=== PATIENT | female | born 1955 | race Caucasian/White ===

== ENCOUNTER 2016-11-20 09:50 | Outpatient (CLI) | payer OTHER | END 2016-11-20 23:59 | DX: L72.3 Sebaceous cyst (principal) ==

== ENCOUNTER 2017-02-19 09:16 | Outpatient (CLI) | payer OTHER ==
--- NOTE | 2017-02-23 07:42 | Mammography Report ---
DIGITAL BILATERAL SCREENING MAMMOGRAM: 02/19/2017 CLINICAL HISTORY: This is a 61-year-old female in for routine screening mammogram. Patient has no f amily history of breast cancer. Patient has had no previous breast surgical procedures. COMPARISON: 10/11/2015, 01/20/2014, 10/03/2011, 12/28/2009 TECHNIQUE: Craniocaudad and oblique lateral views of each breast were obtained with Hologic Full Fie ld digital mammography. FINDINGS: Breast parenchyma consists almost entirely of fat. Four small benign masses are noted in the right breast. Two of these are calcified. They lie within the 9 o'clock position of the right b reast as well as within the upper outer quadrant of the right breast at the 10 and 11 o'clock positio ns. They have been present on preceding mammograms dating as far back as 2009. No change is noted. They most likely represent combination of benign fibroadenomas and benign intramammary lymph nodes. They measure each around 5-7 mm. A few benign-appearing calcifications are noted in the left breast . These are unchanged as compared to multiple preceding exams dated as far back as 01/20/2014. IMPRESSION: BREASTS APPEAR RADIOGRAPHICALLY BENIGN. BIRADS CATEGORY 2 - BENIGN FINDINGS. RECOMMENDATIONS: Annual bilateral screening mammography. STANDARD QUALIFYING STATEMENTS 1. This examination was reviewed with the aid of Computer-Aided Detection (CAD). 2. A negative or benign imaging report should not delay biopsy if clinically suspicious findings are present. Consider surgical consultation if warranted. More than 5% of cancers are not identified by i maging. 3. Dense breasts may obscure an underlying neoplasm. JOB #: [id number] EXT JOB #:[id number]
== END 2017-02-19 09:17 | disposition home or self-care (01) ==
LOC: DI 09:16
PROVIDERS: ATTEND Family Medicine
DX: Z12.31 Encounter for screening mammogram for malignant neoplasm of breast (principal)
CPT/HCPCS: 77067

== ENCOUNTER 2017-02-19 09:18 | Outpatient (CLI) | payer OTHER ==
[2017-02-19 09:53] LABS: BASOPHILS # (AUTO) 0.1 10^3/uL (0.0-0.1); BASOPHILS % (AUTO) 0.8 %; EOSINOPHILS # (AUTO) 0.3 10^3/uL (0.0-0.7); EOSINOPHILS % (AUTO) 3.7 %; HCT - HEMATOCRIT 37.7 % (37.0-47.0); HGB - HEMOGLOBIN 12.4 g/dL (12.0-16.0); LYMPHOCYTES # (AUTO) 1.8 10^3/uL (1.5-3.5); LYMPHOCYTES % (AUTO) 23.4 %; MEAN CORPUSCULAR HGB CONC 32.9 g/dL (32.0-36.0); MEAN CORPUSCULAR VOLUME 94.4 fL (81.0-99.0); MEAN PLATELET VOLUME 7.7 fL (7.9-10.8); MONOCYTES # (AUTO) 0.6 10^3/uL (0.0-1.0); MONOCYTES % (AUTO) 7.7 %; NEUTROPHILS # (AUTO) 4.8 10^3/uL (1.5-6.6); NEUTROPHILS % (AUTO) 64.4 %; RED BLOOD COUNT 3.99 10^6/uL (4.20-5.40); RED CELL DISTRIBUTION WIDTH 14.7 % (12.0-15.0); UNCORRECTED WHITE BLOOD COUNT 7.5 x10^3/uL; WHITE BLOOD COUNT 7.5 x10^3/uL (4.8-10.8)
[2017-02-19 10:14] LABS: ALBUMIN/GLOBULIN RATIO 1.4 (1.0-2.2); BILIRUBIN,TOTAL 0.5 mg/dL (0.2-1.0); BUN - BLOOD UREA NITROGEN 19 mg/dL (6-20); CALCIUM 9.4 mg/dL (8.5-10.3); CARBON DIOXIDE - CO2 31 mmol/L (21-32); CHLORIDE 98 mmol/L (101-111); CHOL/HDL RATIO 1.4 (<4.4); CHOLESTEROL 163 mg/dL; CREATININE 0.6 mg/dL (0.4-1.0); GFR - MDRD 102 (>89); GLUCOSE 148 mg/dL (70-100); HDL CHOLESTEROL 116 mg/dL; LDL/HDL RATIO 0.3 (<4.4); POTASSIUM 4.4 mmol/L (3.5-5.0); SODIUM 138 mmol/L (135-145); TRIGLYCERIDES 47 mg/dL; VLDL CHOLESTEROL 9 mg/dL
[2017-02-19 10:25] LABS: HEMOGLOBIN A1C 0.61 g/dL
[2017-02-19] MEDS ORDERED: IOPAMIDOL-300 50 ML VIAL PO ONE (11:06)
[2017-02-19] MEDS ORDERED: IOPAMIDOL-300 100 ML VIAL IVP ONE (11:58)
--- NOTE | 2017-02-19 13:44 | CT Report ---
CONTRAST-ENHANCED CT EXAM OF THE ABDOMEN AND PELVIS: 02/19/2017 CLINICAL HISTORY: A 61-year-old female with adenocarcinoma of the colon and left lower abdominal pain. COMPARISON: None. TECHNIQUE: Patient received 100 mL of Isovue-300 as a contrast agent. Patient also received oral contrast. CAT scan of the abdomen and pelvis were done in association with the contrast injection at 5 x 5 mm intervals. FINDINGS: Lower lung alcaraz show no significant abnormality. Liver and spleen are normal. Pancreas appears normal. Gallbladder shows no wall thickening. Adrenal glands are normal. Right kidney shows a tiny cyst in its inferior aspect. Left kidney shows mild scarring along its lateral aspect. A 1 cm diameter benign cyst is seen along the medial aspect of the inferior pole of this kidney. Ureters are not significantly distended. Pyelocaliceal systems show no significant distention. Bladder is relatively devoid of urine. Periaortic and paracaval regions show no significant adenopathy. No pelvic or significant inguinal adenopathy is seen. Numerous surgical clips are seen in and about the proximal rectum and distal sigmoid colon, indicating partial resection of the colon in this region. Also, surgical gold are seen within the colonic wall. The rest of the colon and small bowel show no significant abnormality. Bones demonstrate significant disk space narrowing at T9-10. Sclerosis is noted along the adjacent vertebral margins. Associated anterior spurring is seen in the adjacent vertebral bodies at T9 and T10. IMPRESSION: 1. PARTIAL RESECTION OF THE SIGMOID COLON IS NOTED. 2. EXAMINATION IS NEGATIVE FOR METASTATIC DISEASE. 3. SINGLE SMALL BENIGN CYST IS NOTED IN ASSOCIATION WITH EACH KIDNEY. In accordance with CT protocol optimization, one or more of the following dose reduction techniques were utilized for this exam: automated exposure control, adjustment of mA and/or KV based on patient size, or use of iterative reconstructive technique. JOB #: [id number] EXT JOB #: [id number] BENNETT
== END 2017-02-19 09:19 | disposition home or self-care (01) ==
LOC: LAB 09:18
PROVIDERS: ATTEND Family Medicine
DX: R10.32 Left lower quadrant pain (principal); Z85.038 Personal history of other malignant neoplasm of large intestine; Z90.49 Acquired absence of other specified parts of digestive tract; N28.1 Cyst of kidney, acquired; I10 Essential (primary) hypertension; E78.5 Hyperlipidemia, unspecified; E11.9 Type 2 diabetes mellitus without complications
CPT/HCPCS: 36415; 74177; 80053; 80061; 82043; 83036; 84443; 85025; Q9967

== ENCOUNTER 2017-08-14 06:13 | Day surgery (SDC) | payer OTHER ==
[2017-08-14] MEDS ORDERED: LACTATED RINGERS 1,000 ML IV ONE (07:18)
[2017-08-14] MEDS ORDERED: LIDOCAINE MPF 1%-EPI 1:200000 30 ML VIAL SUBQ ONE ×2 (07:48)
[2017-08-14] MEDS ORDERED: BUPIVACAINE 0.25% PF 30 ML VIAL SUBQ ONE ×2 (07:48)
[2017-08-14 08:35] VITALS: BP 142/68
[2017-08-15] MEDS ORDERED: MIDAZOLAM 2 MG/2 ML VIAL IVP ONE (12:00)
--- NOTE | 2017-08-16 11:12 | OPERATIVE REPORT ---
DATE OF SURGERY: 08/14/2017. PREOPERATIVE DIAGNOSIS: Right carpal tunnel syndrome. POSTOPERATIVE DIAGNOSIS: Right carpal tunnel syndrome. PROCEDURE PERFORMED: Right carpal tunnel release. OPERATING SURGEON: Holli Lees MD ANESTHESIA: Local with MAC. INDICATIONS FOR SURGERY: Rosmery is a 61-year-old female with progressive carpal tunnel symptoms and syndrome of her right hand. She has failed a nonoperative course and desires carpal tunnel release. DESCRIPTION OF OPERATIVE PROCEDURE: The patient was taken to the operating room and was given sedation by Anesthesia, followed by a sterile prep and drape of her right hand, a surgical timeout, and then a median nerve block utilizing 4 mL of 1% lidocaine and 4 mL of 0.25% Marcaine with epinephrine. Once the block was in effect, a longitudinal incision of 1-1/4 inches was made in the palm in line with the radial border of the ring finger. This dissection was taken directly down to the transverse carpal ligament, which was divided in line with the incision. The extent of the release extended distally from the area of the superficial arch and at the proximal extent to the distal wrist flexion crease. The area was flushed, irrigated. No abnormality was in the tunnel. The nerve appeared slightly constricted. Closure was with 4-0 nylon interrupted in the skin. Sterile dressings were applied. The patient was then taken to the recovery room in stable condition. ESTIMATED BLOOD LOSS: Minimal. COMPLICATIONS: None. TD: 08/16/2017 08:29 BENNETT
== END 2017-08-14 06:14 | disposition home or self-care (01) ==
LOC: SDS 06:13
PROVIDERS: ATTEND Orthopaedic Surgery
PROC: 01N50ZZ Release Median Nerve, Open Approach (ICD-10-PCS; principal; 2017-08-14 07:30)
DX: G56.01 Carpal tunnel syndrome, right upper limb (principal); E11.9 Type 2 diabetes mellitus without complications; Z79.4 Long term (current) use of insulin
CPT/HCPCS: 64721; J7120

== ENCOUNTER 2017-08-20 08:00 | Outpatient (CLI) | payer OTHER ==
[2017-08-20 18:54] LABS: BASOPHILS % (AUTO) 0.7 %; EOSINOPHILS # (AUTO) 0.2 10^3/uL (0.0-0.7); HCT - HEMATOCRIT 36.8 % (37.0-47.0); LYMPHOCYTES # (AUTO) 1.4 10^3/uL (1.5-3.5); LYMPHOCYTES % (AUTO) 22.5 %; MEAN CORPUSCULAR HEMOGLOBIN 31.3 pg (27.0-31.0); MEAN CORPUSCULAR HGB CONC 32.6 g/dL (32.0-36.0); MEAN CORPUSCULAR VOLUME 95.8 fL (81.0-99.0); MEAN PLATELET VOLUME 8.5 fL (7.9-10.8); MONOCYTES # (AUTO) 0.5 10^3/uL (0.0-1.0); MONOCYTES % (AUTO) 8.7 %; NEUTROPHILS # (AUTO) 4.1 10^3/uL (1.5-6.6); NEUTROPHILS % (AUTO) 65.1 %; NUCLEATED RED BLOOD CELLS AUTO 0.1 /100WBC; RED BLOOD COUNT 3.84 10^6/uL (4.20-5.40); RED CELL DISTRIBUTION WIDTH 14.9 % (12.0-15.0); UNCORRECTED WHITE BLOOD COUNT 6.3 x10^3/uL; WHITE BLOOD COUNT 6.3 x10^3/uL (4.8-10.8)
[2017-08-20 19:15] LABS: HEMOGLOBIN A1C 0.55 g/dL
[2017-08-20 19:20] LABS: ALBUMIN/GLOBULIN RATIO 1.3 (1.0-2.2); BILIRUBIN,TOTAL 0.4 mg/dL (0.2-1.0); CALCIUM 9.2 mg/dL (8.5-10.3); CREATININE 0.6 mg/dL (0.4-1.0); POTASSIUM 4.3 mmol/L (3.5-5.0); TOTAL PROTEIN 6.9 g/dL (6.7-8.2)
== END 2017-08-20 08:01 | disposition home or self-care (01) ==
LOC: LAB.WCP 08:00
PROVIDERS: ATTEND Family Medicine
DX: E11.65 Type 2 diabetes mellitus with hyperglycemia (principal)
CPT/HCPCS: 36415; 80053; 83036; 85025

== ENCOUNTER 2017-10-07 10:46 | Emergency (ER) | payer OTHER ==
[2017-10-07 12:38] LABS: BASOPHILS % (AUTO) 0.5 %; EOSINOPHILS # (AUTO) 0.1 10^3/uL (0.0-0.7); EOSINOPHILS % (AUTO) 1.9 %; HGB - HEMOGLOBIN 11.6 g/dL (12.0-16.0); LYMPHOCYTES # (AUTO) 1.3 10^3/uL (1.5-3.5); LYMPHOCYTES % (AUTO) 21.5 %; MEAN CORPUSCULAR HEMOGLOBIN 31.5 pg (27.0-31.0); MEAN CORPUSCULAR HGB CONC 33.2 g/dL (32.0-36.0); MEAN CORPUSCULAR VOLUME 94.9 fL (81.0-99.0); MEAN PLATELET VOLUME 7.5 fL (7.9-10.8); MONOCYTES # (AUTO) 0.5 10^3/uL (0.0-1.0); MONOCYTES % (AUTO) 8.2 %; NEUTROPHILS # (AUTO) 4.2 10^3/uL (1.5-6.6); NEUTROPHILS % (AUTO) 67.9 %; PLT - PLATELET COUNT 220 10^3/uL (130-450); RED BLOOD COUNT 3.68 10^6/uL (4.20-5.40); RED CELL DISTRIBUTION WIDTH 14.4 % (12.0-15.0); WHITE BLOOD COUNT 6.1 x10^3/uL (4.8-10.8)
--- NOTE | 2017-10-07 12:39 | ED Physician Documentation ---
PD HPI SYNCOPE - Stated complaint Stated Complaint: SYNCOPE/COUGH - Chief complaint Chief Complaint: Resp - History obtained from History obtained from: Patient - History of Present Illness Witnessed: Witnessed (She has a Chronic cough. It has been worse over the last few weeks because that she has had a URI for which she was on a azithromycin. Last night she had a coughing spell during which she had a short syncopal episode with complete and quick return to consciousness. It sounds like her physician thinks that it may be due to reflux as it sounds like she is being scheduled for a barium swallow. She is on lisinopril.) Review of Systems Constitutional: denies: Fever, Chills, Fatigue Cardiac: denies: Chest pain / pressure, Pedal edema, Calf pain Respiratory: reports: Cough. denies: Dyspnea, Hemoptysis, Wheezing GI: denies: Abdominal Pain, Nausea, Vomiting PD PAST MEDICAL HISTORY - Past Medical History Past Medical History: Yes Cardiovascular: Congestive heart failure, Hypertension, High cholesterol, Other Respiratory: Pneumonia, Sleep apnea, CPAP use Neuro: None Endocrine/Autoimmune: Type 2 diabetes GI: Colon polyps, Chronic constipation, Other : None HEENT: Other Psych: None Musculoskeletal: Chronic back pain, Other Derm: None - Past Surgical History General: Bowel surgery, Colonoscopy Ortho: Knee replacement /NUCLEAR FUELS RECLAMATION ENGINEER: Tubal ligation, Hysterectomy - Present Medications Home Medications: Ambulatory Orders Medication Instructions Recorded Confirmed Acyclovir 400 mg PO BID 07/04/13 08/14/17 Atorvastatin Calcium 40 mg PO QPM 07/04/13 08/14/17 Carvedilol 25 mg PO DAILY 07/04/13 08/14/17 Estrogens, Conjugated [Premarin] 0.3 mg PO DAILY 07/04/13 08/14/17 Insulin Aspart [NovoLOG] 3 - 5 unit SUBQ TIDWM 07/04/13 08/14/17 Insulin Glargine,Hum.rec.anlog 15 unit SQ BID 07/04/13 08/14/17 [Lantus] Lisinopril 10 mg PO BID 07/04/13 08/14/17 Multivitamin [Multivitamins] 1 each PO DAILY 07/04/13 08/14/17 Omeprazole [PriLOSEC] 20 mg PO DAILY 07/04/13 08/14/17 hydroCHLOROthiazide [Hydrodiuril] 25 mg PO DAILY 07/04/13 08/14/17 Aspirin EC [Ecotrin] 325 mg PO DAILY 08/09/17 08/14/17 Dulaglutide [Trulicity] 1.5 mg SQ ONCE 08/09/17 08/14/17 Metformin HCl [Glucophage] 1,000 mg PO BID 08/09/17 08/14/17 - Allergies Allergies/Adverse Reactions: Allergies Allergy/AdvReac Type Severity Reaction Status Date / Time hydrocodone [Hydrocodone] AdvReac Mild Nausea Verified 10/07/17 10:52 oxycodone AdvReac Nausea Verified 10/07/17 10:52 - Social History Does the pt smoke?: No Smoking Status: Former smoker Does the pt drink ETOH?: Yes ETOH Use: Liquor Does the pt have substance abuse?: No PD ED PE NORMAL - Vitals Vital signs reviewed: Yes - General General: Alert and oriented X 3, No acute distress - HEENT HEENT: PERRL, EOMI, Ears normal - Neck Neck: Supple, no meningeal sign, No bony TTP - Cardiac Cardiac: RRR, No murmur - Respiratory Respiratory: No respiratory distress, Clear bilaterally - Abdomen Abdomen: Non tender - Extremities Extremities: No edema, No calf tenderness / cord - Neuro Neuro: Alert and oriented X 3, Normal speech Results - Vitals Vitals: Vital Signs - 24 hr 10/07/17 10/07/17 10:49 13:51 Temperature 36 C L Heart Rate 88 84 Respiratory 20 16 Rate Blood Pressure 108/65 115/77 O2 Saturation 97 95 Oxygen O2 Source Room air - EKG (time done) 1246 Rate: Rate (enter#) (81) Rhythm: NSR [place]: Normal QRS: Low voltage Ischemia: Normal ST segments, Q waves (V1/2) Computer interpretation: Agree with computer - Labs Labs: Laboratory Tests 10/07/17 10/07/17 10/07/17 12:23 12:23 12:23 WBC 6.1 RBC 3.68 L Hgb 11.6 L Hct 34.9 L MCV 94.9 MCH 31.5 H MCHC 33.2 RDW 14.4 Plt Count 220 MPV 7.5 L Neut # 4.2 Lymph # 1.3 L [place] # 0.5 Eos # 0.1 Baso # 0.0 Absolute Nucleated RBC 0.00 Nucleated RBC % 0.0 PT 10.9 INR 1.0 Sodium 138 Potassium 4.4 Chloride 97 L Carbon Dioxide 27 Anion Gap 14.0 H BUN 19 Creatinine 0.7 Estimated GFR (MDRD) 85 L Glucose 151 H Calcium 9.7 Total Bilirubin 0.5 AST 23 ALT 17 Alkaline Phosphatase 51 Total Protein 6.8 Albumin 3.9 Globulin 2.9 Albumin/Globulin Ratio 1.3 Lipase 23 - Rads (name of study) 2v chest Radiology: EMP read contemporaneously (NAD) PD MEDICAL DECISION MAKING - ED course ED course: 61-year-old woman with chronic cough, now worse with a URI having been on Zithromax already with an unremarkable exam and EKG. Syncope can be explained from increased intrathoracic pressure from coughing, the cough is likely multiple factorial from URI and potentially lisinopril as well. Departure - Departure Disposition: 01 Home, Self Care Clinical Impression: Cough Syncope Qualifiers: Syncope type: vasovagal syncope Qualified Code(s): R55 - Syncope and collapse Condition: Good Record reviewed to determine appropriate education?: Yes Instructions: ED Fainting Unkn Cause Comments: Stop your lisinopril until you discuss with Dr. Campos, it is a common cause of chronic cough. You are mildly anemic and your blood sugar is up a bit, discussed this with Dr. Campos as well.
[2017-10-07 12:43] LABS: PT - PROTHROMBIN TIME 10.9 secs (9.9-12.6)
[2017-10-07 13:07] LABS: ALBUMIN 3.9 g/dL (3.2-5.5); ALBUMIN/GLOBULIN RATIO 1.3 (1.0-2.2); BILIRUBIN,TOTAL 0.5 mg/dL (0.2-1.0); CALCIUM 9.7 mg/dL (8.5-10.3); CREATININE 0.7 mg/dL (0.4-1.0); TOTAL PROTEIN 6.8 g/dL (6.7-8.2)
[2017-10-07 13:52] VITALS: BP 115/77
--- NOTE | 2017-10-07 14:00 | XRAY Report ---
EXAM: CHEST RADIOGRAPHY EXAM DATE: 10/07/2017 01:46 PM. CLINICAL HISTORY: Cough. COMPARISON: 10/03/2016. TECHNIQUE: 2 views. FINDINGS: Lungs/Pleura: No focal opacities evident. No pleural effusion. No pneumothorax. Normal volumes. Mediastinum: Heart and mediastinal contours are unremarkable. Other: None. IMPRESSION: No radiographic evidence for acute cardiopulmonary process. [facility] Referring Provider Line: [phone] SITE ID: [id number]
== END 2017-10-07 15:17 | disposition home or self-care (01) ==
LOC: ED 10:46
DX: R55 Syncope and collapse (principal); R05 Cough; I11.0 Hypertensive heart disease with heart failure; I50.9 Heart failure, unspecified; E78.00 Pure hypercholesterolemia, unspecified; E11.9 Type 2 diabetes mellitus without complications; Z79.4 Long term (current) use of insulin; Z87.891 Personal history of nicotine dependence; Z96.659 Presence of unspecified artificial knee joint
CPT/HCPCS: 36415; 71046; 80053; 83690; 85025; 85610; 93005; 99283; 99284

== ENCOUNTER 2017-11-01 09:15 | Outpatient (CLI) | payer OTHER ==
--- NOTE | 2017-11-01 17:21 | XRAY Report ---
UPPER GI WITH KUB: 11/01/2017 CLINICAL INDICATION: Dysphagia, reflux. FINDINGS: Initial KUB demonstrates a normal bowel gas pattern. Postoperative changes are noted in the pelvis. Single and double contrast upper GI was performed. The esophagus is normal in caliber and contractility. A 13 mm barium pill passed freely through the esophagus and into the stomach. Gastroesophageal reflux was visualized during the course of the study. No esophageal ulceration or mass lesion is seen. The stomach demonstrates a normal fold pattern. No gastric ulceration or mass lesion is seen. The duodenal cap distends normally. The duodenal C loop is unremarkable. Contrast passes freely in the more distal small bowel loops. IMPRESSION: GASTROESOPHAGEAL REFLUX. NO EVIDENCE OF ULCERATION OR MASS LESION. FLUOROSCOPY TIME: 2 minutes 31 seconds; 24 spot images obtained. TD: 11/01/2017 17:20
== END 2017-11-01 09:16 | disposition home or self-care (01) ==
LOC: DI 09:15
PROVIDERS: ATTEND Family Medicine
DX: R13.10 Dysphagia, unspecified (principal); K21.9 Gastro-esophageal reflux disease without esophagitis
CPT/HCPCS: 74247

== ENCOUNTER 2017-11-12 10:56 | Outpatient (CLI) | payer OTHER | END 2017-11-12 10:57 | disposition home or self-care (01) | LOC: SC 10:56 | PROVIDERS: ATTEND Nurse Practitioner Family | DX: G47.33 Obstructive sleep apnea (adult) (pediatric) (principal) | CPT/HCPCS: 99212; 99213 ==

== ENCOUNTER 2017-12-31 08:00 | Outpatient (CLI) | payer OTHER ==
[2017-12-31 19:41] LABS: BASOPHILS # (AUTO) 0.1 10^3/uL (0.0-0.1); EOSINOPHILS # (AUTO) 0.1 10^3/uL (0.0-0.7); EOSINOPHILS % (AUTO) 2.5 %; HGB - HEMOGLOBIN 11.7 g/dL (12.0-16.0); LYMPHOCYTES # (AUTO) 1.2 10^3/uL (1.5-3.5); LYMPHOCYTES % (AUTO) 21.4 %; MEAN CORPUSCULAR HEMOGLOBIN 30.1 pg (27.0-31.0); MEAN CORPUSCULAR HGB CONC 31.6 g/dL (32.0-36.0); MEAN CORPUSCULAR VOLUME 95.2 fL (81.0-99.0); MEAN PLATELET VOLUME 8.3 fL (7.9-10.8); MONOCYTES # (AUTO) 0.5 10^3/uL (0.0-1.0); MONOCYTES % (AUTO) 9.7 %; NEUTROPHILS # (AUTO) 3.7 10^3/uL (1.5-6.6); NEUTROPHILS % (AUTO) 65.4 %; PLT - PLATELET COUNT 219 10^3/uL (130-450); RED BLOOD COUNT 3.88 10^6/uL (4.20-5.40); RED CELL DISTRIBUTION WIDTH 14.8 % (12.0-15.0); WHITE BLOOD COUNT 5.6 x10^3/uL (4.8-10.8)
[2017-12-31 20:17] LABS: ALBUMIN 3.7 g/dL (3.2-5.5); ALBUMIN/GLOBULIN RATIO 1.2 (1.0-2.2); ALKALINE PHOSPHATASE 53 IU/L (42-121); ALT ALANINE AMINOTRANSFERASE 16 IU/L (10-60); AST ASPARTATE AMINOTRANSFERASE 21 IU/L (10-42); BILIRUBIN,TOTAL 0.4 mg/dL (0.2-1.0); BUN - BLOOD UREA NITROGEN 20 mg/dL (6-20); CALCIUM 8.7 mg/dL (8.5-10.3); CARBON DIOXIDE - CO2 30 mmol/L (21-32); CHLORIDE 95 mmol/L (101-111); CHOL/HDL RATIO 1.5 (<4.4); CHOLESTEROL 151 mg/dL; CREATININE 0.5 mg/dL (0.4-1.0); GFR - MDRD 125 (>89); GLUCOSE 138 mg/dL (70-100); HB2 TOTAL 13.1 g/dL; HDL CHOLESTEROL 102 mg/dL; HEMOGLOBIN A1C 0.61 g/dL; HEMOGLOBIN A1C % 6.4 % (4.6-6.2); LDL CHOLESTEROL,CALCULATED 38 mg/dL; LDL/HDL RATIO 0.4 (<4.4); SODIUM 135 mmol/L (135-145); TOTAL PROTEIN 6.8 g/dL (6.7-8.2); VLDL CHOLESTEROL 11 mg/dL
[2017-12-31 20:22] LABS: THYROID STIMULATING HORMONE 0.91 uIU/mL (0.34-5.60)
== END 2017-12-31 08:01 | disposition home or self-care (01) ==
LOC: LAB.WCP 08:00
PROVIDERS: ATTEND Family Medicine
DX: E11.40 Type 2 diabetes mellitus with diabetic neuropathy, unspecified (principal)
CPT/HCPCS: 36415; 80053; 80061; 82043; 82607; 83036; 83721; 84443; 85025

== ENCOUNTER 2018-06-10 14:07 | Outpatient (CLI) | payer OTHER ==
--- NOTE | 2018-06-11 16:30 | Mammography Report ---
Reason: SCREENING MAMMO Procedure Date: 06/10/2018 Accession Number: [id number] / [id number] Procedure: ELISEO - Screening Mammo Dig Bilat CPT Code: FULL RESULT: EXAM: Screening Mammo Dig Bilat DATE: 06/10/2018 3:18 PM CLINICAL HISTORY: 62-year-old female presents for screening mammogram. TECHNIQUE: Bilateral CC and MLO views were obtained. COMPARISON: 02/19/2017, 10/11/2015, 01/20/2014, 10/03/2011. FINDINGS: The breasts demonstrate diffuse fatty replacement bilaterally. There are bilateral typically benign coarse calcifications. No suspicious masses, clustered microcalcifications, or regions of architectural distortion are identified. IMPRESSION: Benign findings RECOMMENDATION: Routine annual screening unless otherwise clinically indicated. BIRADS CATEGORY 2: Benign findings STANDARD QUALIFYING STATEMENTS: 1. This examination was not reviewed with the aid of Computer-Aided Detection (CAD). 2. A negative or benign imaging report should not delay biopsy if clinically suspicious findings are present. Consider surgical consultation if warrented. More than 5% of cancers are not identified by imaging. 3. Dense breasts may obscure an underlying neoplasm. 4. This examination was reviewed without the aid of 3D breast imaging (tomosynthesis).
== END 2018-06-10 14:08 | disposition home or self-care (01) ==
LOC: DI 14:07
DX: Z12.31 Encounter for screening mammogram for malignant neoplasm of breast (principal)
CPT/HCPCS: 77067

== ENCOUNTER 2018-11-11 10:45 | Outpatient (CLI) | payer OTHER | END 2018-11-11 10:46 | disposition home or self-care (01) | LOC: SC 10:45 | PROVIDERS: ATTEND Nurse Practitioner Family | DX: G47.33 Obstructive sleep apnea (adult) (pediatric) (principal); R53.83 Other fatigue | CPT/HCPCS: 99212; 99214 ==

== ENCOUNTER 2018-11-11 12:06 | Outpatient (CLI) | payer OTHER ==
[2018-11-11 19:07] LABS: BASOPHILS % (AUTO) 0.7 %; EOSINOPHILS # (AUTO) 0.1 10^3/uL (0.0-0.7); EOSINOPHILS % (AUTO) 2.5 %; HGB - HEMOGLOBIN 12.5 g/dL (12.0-16.0); LYMPHOCYTES # (AUTO) 1.3 10^3/uL (1.5-3.5); LYMPHOCYTES % (AUTO) 23.5 %; MEAN CORPUSCULAR HEMOGLOBIN 31.8 pg (27.0-31.0); MEAN CORPUSCULAR HGB CONC 32.4 g/dL (32.0-36.0); MEAN PLATELET VOLUME 8.9 fL (7.9-10.8); MONOCYTES # (AUTO) 0.5 10^3/uL (0.0-1.0); MONOCYTES % (AUTO) 8.3 %; NEUTROPHILS # (AUTO) 3.7 10^3/uL (1.5-6.6); PLT - PLATELET COUNT 201 10^3/uL (130-450); RED BLOOD COUNT 3.93 10^6/uL (4.20-5.40); RED CELL DISTRIBUTION WIDTH 14.7 % (12.0-15.0); WHITE BLOOD COUNT 5.7 x10^3/uL (4.8-10.8)
[2018-11-11 19:39] LABS: HB2 TOTAL 13.3 g/dL; HEMOGLOBIN A1C 0.73 g/dL; HEMOGLOBIN A1C % 7.2 % (4.6-6.2)
[2018-11-11 19:47] LABS: ALBUMIN 3.6 g/dL (3.2-5.5); ALBUMIN/GLOBULIN RATIO 1.2 (1.0-2.2); ALKALINE PHOSPHATASE 58 IU/L (42-121); ALT ALANINE AMINOTRANSFERASE 18 IU/L (10-60); AST ASPARTATE AMINOTRANSFERASE 27 IU/L (10-42); BILIRUBIN,TOTAL 0.7 mg/dL (0.2-1.0); BUN - BLOOD UREA NITROGEN 20 mg/dL (6-20); CALCIUM 9.4 mg/dL (8.5-10.3); CARBON DIOXIDE - CO2 30 mmol/L (21-32); CHLORIDE 97 mmol/L (101-111); CHOL/HDL RATIO 1.4 (<4.4); CHOLESTEROL 165 mg/dL; CREATININE 0.7 mg/dL (0.4-1.0); GFR - MDRD 85 (>89); GLUCOSE 130 mg/dL (70-100); HDL CHOLESTEROL 119 mg/dL; LDL CHOLESTEROL,CALCULATED 35 mg/dL; LDL/HDL RATIO 0.3 (<4.4); SODIUM 138 mmol/L (135-145); TOTAL PROTEIN 6.6 g/dL (6.7-8.2); VLDL CHOLESTEROL 11 mg/dL
== END 2018-11-11 12:07 | disposition home or self-care (01) ==
LOC: LAB.WCP 12:06
PROVIDERS: ATTEND Family Medicine
DX: E11.40 Type 2 diabetes mellitus with diabetic neuropathy, unspecified (principal); E78.5 Hyperlipidemia, unspecified; I10 Essential (primary) hypertension; D64.9 Anemia, unspecified
CPT/HCPCS: 36415; 80053; 80061; 82043; 83036; 83721; 84443; 85025

== ENCOUNTER 2019-06-26 09:11 | Outpatient (CLI) | payer OTHER ==
[2019-06-26 12:20] LABS: BASOPHILS % (AUTO) 0.5 %; EOSINOPHILS # (AUTO) 0.1 10^3/uL (0.0-0.7); EOSINOPHILS % (AUTO) 2.3 %; HGB - HEMOGLOBIN 11.7 g/dL (12.0-16.0); LYMPHOCYTES # (AUTO) 1.5 10^3/uL (1.5-3.5); LYMPHOCYTES % (AUTO) 23.7 %; MEAN CORPUSCULAR HEMOGLOBIN 28.8 pg (27.0-31.0); MEAN CORPUSCULAR HGB CONC 30.8 g/dL (32.0-36.0); MEAN CORPUSCULAR VOLUME 93.6 fL (81.0-99.0); MEAN PLATELET VOLUME 10.6 fL (7.9-10.8); MONOCYTES # (AUTO) 0.6 10^3/uL (0.0-1.0); MONOCYTES % (AUTO) 9.5 %; NEUTROPHILS # (AUTO) 3.9 10^3/uL (1.5-6.6); NEUTROPHILS % (AUTO) 63.5 %; PLT - PLATELET COUNT 219 10^3/uL (130-450); RED BLOOD COUNT 4.06 10^6/uL (4.20-5.40); WHITE BLOOD COUNT 6.1 x10^3/uL (4.8-10.8)
[2019-06-26 12:25] LABS: ALBUMIN 3.7 g/dL (3.2-5.5); ALBUMIN/GLOBULIN RATIO 1.2 (1.0-2.2); BILIRUBIN,TOTAL 0.5 mg/dL (0.2-1.0); CALCIUM 9.2 mg/dL (8.5-10.3); CREATININE 0.7 mg/dL (0.4-1.0); TOTAL PROTEIN 6.8 g/dL (6.7-8.2)
[2019-06-26 13:04] LABS: HB2 TOTAL 12.6 g/dL; HEMOGLOBIN A1C 0.63 g/dL; HEMOGLOBIN A1C % 6.7 % (4.6-6.2)
== END 2019-06-26 23:59 | disposition home or self-care (01) ==
LOC: LAB.WCP 09:11
PROVIDERS: ATTEND Family Medicine
DX: E11.9 Type 2 diabetes mellitus without complications (principal)
CPT/HCPCS: 36415; 80053; 83036; 85025

== ENCOUNTER 2019-07-01 15:37 | Outpatient (CLI) | payer OTHER ==
[2019-07-01 16:33] VITALS: BP 148/80
--- NOTE | 2019-07-01 16:33 | SLEEP CARE CONSULTATION ---
Information from patient questionnaire entered by Adrianne Bonner. I have reviewed and concur with the information entered by Adrianne Bonner. This document represents the service I personally performed and the decisions made by me, Michelle Kim, RN, MSN, [employer]. History of Present Illness Previous diagnosis: Moderate, Obstructive Sleep Apnea-Hypopnea Syndrome AHI: 17.4 Reason for CPAP/BiPAP follow up: other (7 month ) Equipment type: CPAP Equipment obtained from: [facility] (having problems getting supplies despite repeated attempts) Mask style: Nasal Mask brand: Respironics Backup mask available: Yes Last cushion change: 2 weeks Prior sleep studies: Yes CPAP Compliance Data - Data Reviewed with Patient Average duration of nightly device use: 9h 20m Compliance rate %: 99.4 Current pressure setting (cmH2O): 10 Humidity settin Heated hose settin Average residual AHI: 2.9 Average large leak: 1 minute Subjective Missed days of use due to: reports: other (unknown as patient uses every night ) Patient concerns: reports: condensation in mask/hose (in nose piece rarely that she thinks is from over feel ). denies: aerophagia, mask discomfort, air blowing in eyes, mask leak noise, nasal congestion, dry mouth, nose, throat, epistaxis Observed to snore while using device: Yes (rare ) Current pressure setting perceived as: comfortable On therapy, patient: reports: being more awake and alert during the day, more rested overall. denies: sleeping better, awakening more refreshed (gets up to bathroom frequently due to diuretic ), drowsiness while driving Initial Aurora Sleepiness Scale score: 12 Current Aurora Sleepiness Scale score: 2 Allergies and Home Medications Known drug allergies: Yes (vicodan, percocet) Home medication list reviewed: Yes (no changes from last annual ) Review of Systems Review of systems same as previous: Yes Physical Exam Blood Pressure: 148/80 Cuff size: long Heart Rate: 78 O2 Saturation: 98 Weight change since last visit: none - deferred stated same weight at pcp office recently Impression and Plan 1. Obstructive Sleep Apnea-Hypopnea Syndrome, moderate, with good treatment compliance and good apnea control. On CPAP therapy, the patient has better sleep quality and is more rested overall. For supplies concern, I informed her she could transfer to new DME and she agreed. Thus I will have my house coordinator inform her of DME options for her insurance. A DWO prescription will be completed. If continued problems she is to contact us. Patient also advised that if she gains or loses significant weight, her CPAP pressure may have to be changed and symptoms to report discussed. She would like to lose weight. I advised her to reduce portions and avoid refined foods and discuss guidelines with her PCP. Patient's apnea severity and rationale for treatment to reduce apnea, improve sleep quality and reduce cardiovascular and cerebrovascular events was reviewed. I also reviewed the benefit of consistent device use of CPAP for hypertension, diabetes, gastric reflux, . * Continue CPAP pressure at 10 cmH2O * Transfer of care * Notify me if snoring with mask or feeling that the pressure is too much or too little * Attempt to lose weight * Return for follow up in 1 year , or sooner if concerns arise I spent 100% of this 20 minute visit face to face with the patient with greater than 50% of this was spent time counseling the patient and coordination of care.
== END 2019-07-01 15:38 | disposition home or self-care (01) ==
LOC: SC 15:37
PROVIDERS: ATTEND Nurse Practitioner Family
DX: G47.33 Obstructive sleep apnea (adult) (pediatric) (principal)
CPT/HCPCS: 99212; 99213

== ENCOUNTER 2019-07-28 11:32 | Outpatient (CLI) | payer OTHER ==
--- NOTE | 2019-07-29 08:31 | CT Report ---
Reason: CHRONIC COUGH Procedure Date: 07/28/2019 Accession Number: [id number] / [id number] Procedure: CT - CHEST WO CPT Code: Final Report FULL RESULT: EXAM: CT CHEST EXAM DATE: 07/28/2019 11:49 AM. CLINICAL HISTORY: Chronic cough. COMPARISONS: CHEST 2 VIEW 10/07/2017 1:36 PM. TECHNIQUE: Routine helical CT imaging was performed through the chest. IV contrast: None. Reconstructions: Coronal and sagittal. In accordance with CT protocol optimization, one or more of the following dose reduction techniques were utilized for this exam: automated exposure control, adjustment of mA and/or KV based on patient size, or use of iterative reconstructive technique. FINDINGS: Lungs/Pleura: No nodules, bronchial thickening, consolidation, or edema. Pulmonary vasculature is normal. No pericardial or pleural effusion. No pneumothorax. Mediastinum: . No adenopathy or masses. No cardiomegaly. Scattered coronary arterial calcifications. Bones: Degenerative disk space narrowing, subchondral sclerotic changes mid to lower thoracic spine. Vertebral body heights appear maintained. Visualized Abdomen: Unremarkable. Other: None. IMPRESSION: No lung abnormalities detected. [facility]
== END 2019-07-28 11:33 | disposition home or self-care (01) ==
LOC: DI 11:32
PROVIDERS: ATTEND Family Medicine
DX: I50.9 Heart failure, unspecified (principal); R05 Cough; I51.7 Cardiomegaly; I51.89 Other ill-defined heart diseases; I27.20 Pulmonary hypertension, unspecified
CPT/HCPCS: 71250; 93306

== ENCOUNTER 2019-08-19 17:49 | Emergency (ER) | payer OTHER ==
[2019-08-19] MEDS ORDERED: IPRATROPIUM/ALBUTEROL 3 ML NEB INH STA (17:57)
[2019-08-19] MEDS ORDERED: methylPREDNISolone SUCCINATE 125 MG/2 ML VIAL IVP STA (17:57)
--- NOTE | 2019-08-19 18:18 | ED Physician Documentation ---
PD HPI DYSPNEA - Stated complaint Stated Complaint: DIFFICULTY BREATHING - Chief complaint Chief Complaint: Resp - History obtained from History obtained from: Patient - History of Present Illness Timing - onset: How many days ago (Several days) Timing - duration: Days Timing - details: Gradual onset Pain level max: 0 Pain level now: 0 Inciting event(s): Out of meds (She states she has her pro-air inhaler, but is waiting on her second inhaler. She does not know the name of the other inhaler) Improved by: Inhaler/neb, Rest Worsened by: Exertion, Coughing Associated symptoms: Cough (Mild, dry), Wheezing. 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 and states that her heart was "fine".) Review of Systems Ten Systems: 10 systems reviewed and negative Constitutional: denies: Fever, Chills Ears: denies: Ear pain Nose: denies: Rhinorrhea / runny nose, Congestion Throat: denies: Sore throat Cardiac: denies: Chest pain / pressure Respiratory: denies: Cough GI: denies: Nausea, Vomiting, Diarrhea Skin: denies: Rash Musculoskeletal: denies: Neck pain, Back pain Neurologic: denies: Headache PD PAST MEDICAL HISTORY - Past Medical History Cardiovascular: Congestive heart failure, Hypertension, High cholesterol, Other Respiratory: Pneumonia, Sleep apnea, CPAP use Endocrine/Autoimmune: Type 2 diabetes GI: Colon polyps, Chronic constipation, Other : None HEENT: Other Psych: None Musculoskeletal: Chronic back pain, Other Derm: None - Past Surgical History General: Bowel surgery, Colonoscopy Ortho: 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: Tubal 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, Hysterectomy - Present Medications Home Medications: Ambulatory Orders Medication Instructions Recorded Confirmed Acyclovir 400 mg PO BID 07/04/13 08/14/17 Atorvastatin Calcium 40 mg PO QPM 07/04/13 08/14/17 Carvedilol 25 mg PO DAILY 07/04/13 08/14/17 Estrogens, Conjugated [Premarin] 0.3 mg PO DAILY 07/04/13 08/14/17 Insulin Aspart [NovoLOG] 3 - 5 unit SUBQ TIDWM 07/04/13 08/14/17 Insulin Glargine,Hum.rec.anlog 15 unit SQ BID 07/04/13 08/14/17 [Lantus] Lisinopril 10 mg PO BID 07/04/13 08/14/17 Multivitamin [Multivitamins] 1 each PO DAILY 07/04/13 08/14/17 Omeprazole [PriLOSEC] 20 mg PO DAILY 07/04/13 08/14/17 hydroCHLOROthiazide [Hydrodiuril] 25 mg PO DAILY 07/04/13 08/14/17 Aspirin EC [Ecotrin] 325 mg PO DAILY 08/09/17 08/14/17 Dulaglutide [Trulicity] 1.5 mg SQ ONCE 08/09/17 08/14/17 Metformin HCl [Glucophage] 1,000 mg PO BID 08/09/17 08/14/17 predniSONE [Deltasone] 10 mg PO [id number] #42 tab 08/19/19 - Allergies Allergies/Adverse Reactions: Allergies Allergy/AdvReac Type Severity Reaction Status Date / Time hydrocodone [Hydrocodone] AdvReac Mild Nausea Verified 08/19/19 17:57 oxycodone AdvReac Nausea Verified 08/19/19 17:57 - Social History Does the pt smoke?: No Smoking Status: Former smoker Does the pt drink ETOH?: Yes Does the pt have substance abuse?: No PD ED PE NORMAL - Vitals Vital signs reviewed: Yes - General General: Alert and oriented X 3, No acute distress - HEENT HEENT: Moist mucous membranes - Neck Neck: Supple, no meningeal sign - Cardiac Cardiac: RRR, Strong equal pulses - Respiratory Respiratory: Other (Diminished breath sounds bilaterally. Wheezing bilaterally.) - Abdomen Abdomen: Soft, Non tender, Non distended - Derm Derm: Warm and dry - Extremities Extremities: No edema, No calf tenderness / cord - Neuro Neuro: Alert and oriented X 3 - Psych Psych: Normal mood, Normal affect Results - Vitals Vitals: Oxygen O2 Source Room air - EKG (time done) 1758 Rate: Rate (enter#) (95) Rhythm: NSR [place]: Normal Intervals: Normal ND QRS: Normal Ischemia: Normal ST segments, Q waves (V1-2) - Labs Labs: Laboratory Tests 08/19/19 08/19/19 08/19/19 18:15 18:15 18:15 WBC 6.5 RBC 4.32 Hgb 13.2 Hct 40.9 MCV 94.7 MCH 30.6 MCHC 32.3 RDW 15.5 H Plt Count 251 MPV 9.7 Neut # (Auto) 4.5 Lymph # (Auto) 1.2 L [place] # (Auto) 0.5 Eos # (Auto) 0.1 Baso # (Auto) 0.0 Absolute Nucleated RBC 0.00 Nucleated RBC % 0.0 Sodium 139 Potassium 3.8 Chloride 99 L Carbon Dioxide 28 Anion Gap 12.0 BUN 17 Creatinine 0.5 Estimated GFR (MDRD) 125 Glucose 182 H Calcium 9.4 Total Bilirubin 0.6 AST 24 ALT 19 Alkaline Phosphatase 55 B-Natriuretic Peptide 155 H Total Protein 7.5 Albumin 4.0 Globulin 3.5 Albumin/Globulin Ratio 1.1 Lipase 26 - Rads (name of study) cxr Radiology: Prelim report reviewed, EMP read contemporaneously, See rad report (No acute disease) PD MEDICAL DECISION MAKING - ED course Complexity details: reviewed results, re-evaluated patient, considered differential, d/w patient ED course: Patient feels much better after steroids and nebulizer treatment. No further hypoxia. Breathing easier. She request to go home at this time. No evidence of pneumonia. No evidence of sepsis. No evidence of pulmonary embolus or pulmonary edema. We will place on steroids for home in addition to her usual medications and inhalers. Patient counseled regarding signs and symptoms for which I believe and urgent re-evaluation would be necessary. Patient with good understanding of and agreement to plan and is comfortable going home at this time This document was made in part using voice recognition software. While efforts are made to proofread this document, sound alike and grammatical errors may occur. Departure - Departure Disposition: 01 Home, Self Care Clinical Impression: Asthma attack Qualifiers: Asthma severity: unspecified severity Asthma persistence: unspecified Qualified Code(s): J45.901 - Unspecified asthma with (acute) exacerbation Condition: Good Instructions: ED Reactive Airway Disease Follow-Up: Gadiel Campos DO [Primary Care Provider] - Within 1 week Prescriptions: predniSONE [Deltasone] 10 mg PO [id number] #42 tab Comments: Continue to use your inhaler at home, use it with a spacer. Take the steroids until gone. Return if you worsen. Discharge Date/Time: 08/19/19 19:54
--- NOTE | 2019-08-19 18:21 | XRAY Report ---
Reason: dyspnea Procedure Date: 08/19/2019 Accession Number: [id number] / [id number] Procedure: XR - Chest 1 View X-Ray CPT Code: 49441 Final Report FULL RESULT: EXAM: CHEST RADIOGRAPHY EXAM DATE: 08/19/2019 06:07 PM. CLINICAL HISTORY: Dyspnea. COMPARISON: CHEST 2 VIEW 10/07/2017 1:36 PM CHEST W/O 07/28/2019 11:47 AM. TECHNIQUE: 1 view. FINDINGS: Limited exam. Lungs/Pleura: No focal opacities evident. No pleural effusion. No pneumothorax. Mediastinum: Within exam limitations, the cardiomediastinal contour is normal. Other: No definite acute findings compared with 10/07/2017. IMPRESSION: Negative single view chest. No definite acute findings identified. RADIA
[2019-08-19 18:23] LABS: BASOPHILS % (AUTO) 0.5 %; EOSINOPHILS # (AUTO) 0.1 10^3/uL (0.0-0.7); HGB - HEMOGLOBIN 13.2 g/dL (12.0-16.0); LYMPHOCYTES # (AUTO) 1.2 10^3/uL (1.5-3.5); LYMPHOCYTES % (AUTO) 18.8 %; MEAN CORPUSCULAR HEMOGLOBIN 30.6 pg (27.0-31.0); MEAN CORPUSCULAR HGB CONC 32.3 g/dL (32.0-36.0); MEAN CORPUSCULAR VOLUME 94.7 fL (81.0-99.0); MEAN PLATELET VOLUME 9.7 fL (7.9-10.8); MONOCYTES # (AUTO) 0.5 10^3/uL (0.0-1.0); MONOCYTES % (AUTO) 8.1 %; NEUTROPHILS # (AUTO) 4.5 10^3/uL (1.5-6.6); NEUTROPHILS % (AUTO) 70.1 %; PLT - PLATELET COUNT 251 10^3/uL (130-450); RED BLOOD COUNT 4.32 10^6/uL (4.20-5.40); RED CELL DISTRIBUTION WIDTH 15.5 % (12.0-15.0); WHITE BLOOD COUNT 6.5 x10^3/uL (4.8-10.8)
[2019-08-19 18:37] LABS: ALBUMIN/GLOBULIN RATIO 1.1 (1.0-2.2); BILIRUBIN,TOTAL 0.6 mg/dL (0.2-1.0); CALCIUM 9.4 mg/dL (8.5-10.3); CREATININE 0.5 mg/dL (0.4-1.0); TOTAL PROTEIN 7.5 g/dL (6.7-8.2)
[2019-08-19] MEDS ORDERED: ALBUTEROL NEB 2.5 MG/3 ML INH STA (19:03)
[2019-08-19 19:54] VITALS: BP 146/84
== END 2019-08-19 19:54 | disposition home or self-care (01) ==
LOC: ED 17:49
DX: J45.901 Unspecified asthma with (acute) exacerbation (principal); I11.0 Hypertensive heart disease with heart failure; I50.9 Heart failure, unspecified; E11.9 Type 2 diabetes mellitus without complications; Z79.4 Long term (current) use of insulin; Z79.82 Long term (current) use of aspirin; Z87.891 Personal history of nicotine dependence
CPT/HCPCS: 36415; 71045; 80053; 83690; 83880; 85025; 93005; 94640; 96374; 99284

== ENCOUNTER 2019-10-15 09:20 | Outpatient (CLI) | payer BC, OTHER ==
[~2019-10-15 09:20] MED LIST: ALBUTEROL NEB 2.5 MG/3 ML INH SCH
== END 2019-10-15 09:21 | disposition home or self-care (01) ==
LOC: RT 09:20
PROVIDERS: ATTEND Family Medicine
DX: J45.909 Unspecified asthma, uncomplicated (principal)
CPT/HCPCS: 94060; 94664

== ENCOUNTER 2019-10-27 11:04 | Outpatient (CLI) | payer OTHER ==
[2019-10-27] MEDS ORDERED: REGADENOSON 0.4 MG/5 ML SYRINGE IVP ONE ×2 (12:48→16:17)
[2019-10-27] MEDS ORDERED: AMINOPHYLLINE 250 MG/10 ML VIAL ONE (12:48)
--- NOTE | 2019-10-27 16:02 | CARDIAC PROCEDURE NOTE ---
DATE OF SERVICE: 10/27/2019 Physician: Allyssa Rowan MD, [facility] INDICATION: Cardiomyopathy. CARDIAC RISK FACTORS: Postmenopausal status, hypertension, diabetes, elevated cholesterol, family history of heart disease. PROCEDURE: After signing informed consent, the patient underwent a Lexiscan pharmaceutical stress test with nuclear myocardial perfusion imaging. RESTING HEART RATE: 86. PEAK HEART RATE: 92. RESTING BLOOD PRESSURE: 162/61. PEAK BLOOD PRESSURE: 175/88. Lexiscan was infused per protocol. Patient had mild shortness of breath and nausea, she had no chest pain. The symptoms subsided spontaneously after 3 minutes. RESTING EKG: Normal sinus rhythm, rare PVCs, left atrial enlargement, QS waves in V1 and V2. EKG AT PEAK: New flattening of T-waves in leads II, III, aVF, and V4 through V6. SUMMARY 1. Abnormal resting EKG. 2. T-wave changes developed with pharmaceutical stress, these are consistent with ischemic changes. 3. Nuclear images reported separately. 4. This patient's cardiac risk based on all the above: High. TD: 10/27/2019 15:22 BENNETT
--- NOTE | 2019-10-28 16:18 | Nuclear Medicine Report ---
Reason: CARDIOMYOPATHY Procedure Date: 10/27/2019 Accession Number: [id number] / [id number] Procedure: NM - Myocardial Perfusion STR/RST CPT Code: Final Report FULL RESULT: EXAM: SINGLE-ISOTOPE PHARMACOLOGICAL STRESS TEST WITH REGADENOSON. SINGLE-ISOTOPE AND ONE-DAY REST/STRESS MYOCARDIAL PERFUSION SCANS WITH TOMOGRAPHIC IMAGING, QUANTITATIVE ANALYSIS, WALL MOTION ANALYSIS AND CALCULATION OF EJECTION FRACTION. EXAM DATE: 10/27/2019 04:12 PM. CLINICAL HISTORY: CARDIOMYOPATHY. COMPARISON: None available. TECHNIQUE: After the intravenous administration of 9.9 mCi of Tc-99m sestamibi, a rest myocardial perfusion scan was done with tomography. Motion correction was applied when appropriate. After an appropriate delay, pharmacological stress was performed with the infusion of 0.4 mg regadenoson per protocol. According to protocol, 42.7 mCi of Tc-99m sestamibi was injected for stress myocardial perfusion scan. Motion correction was applied when appropriate. Gated tomographic images were obtained for wall motion analysis and computation of left ventricular ejection fraction. FINDINGS: Images show a severe fixed defect involving the apex, extending into the distal anteroseptal wall. No convincing significant reversible perfusion defects. Summed stress score 13 Summed rest score 11 Summed difference score 1 Wall motion analysis demonstrates no focal wall motion abnormality. The left ventricular end-diastolic volume is 100 cc. The left ventricular end-systolic volume is 32 cc. The left ventricular ejection fraction is calculated to be 68%. IMPRESSION: 1. Fixed apical perfusion defect extending into the distal anteroseptal wall. No convincing reversible perfusion defects. 2. Left ventricular ejection fraction of 68%. 3. Normal segmental and global wall motion. 4. Normal left ventricular cavity size, no change with stress. Please correlate findings with stress ECG tracings and procedure notes. RADIA
== END 2019-10-27 11:05 | disposition home or self-care (01) ==
LOC: DI 11:04
PROVIDERS: ATTEND Internal Medicine
DX: I42.9 Cardiomyopathy, unspecified (principal); R94.31 Abnormal electrocardiogram [ECG] [EKG]; I10 Essential (primary) hypertension; E11.9 Type 2 diabetes mellitus without complications; E78.00 Pure hypercholesterolemia, unspecified; Z82.49 Family history of ischemic heart disease and other diseases of the circulatory system; Z78.0 Asymptomatic menopausal state
CPT/HCPCS: 78452; 93017; A9500; J2785

== ENCOUNTER 2020-05-27 08:00 | Outpatient (CLI) | payer BC, OTHER ==
[2020-05-27 11:52] LABS: BASOPHILS % (AUTO) 0.7 %; EOSINOPHILS # (AUTO) 0.1 10^3/uL (0.0-0.7); EOSINOPHILS % (AUTO) 1.9 %; HGB - HEMOGLOBIN 12.1 g/dL (12.0-16.0); LYMPHOCYTES # (AUTO) 1.2 10^3/uL (1.5-3.5); LYMPHOCYTES % (AUTO) 21.2 %; MEAN CORPUSCULAR HGB CONC 31.4 g/dL (32.0-36.0); MEAN CORPUSCULAR VOLUME 98.7 fL (81.0-99.0); MEAN PLATELET VOLUME 10.2 fL (7.9-10.8); MONOCYTES # (AUTO) 0.6 10^3/uL (0.0-1.0); MONOCYTES % (AUTO) 9.5 %; NEUTROPHILS # (AUTO) 3.8 10^3/uL (1.5-6.6); NEUTROPHILS % (AUTO) 66.2 %; PLT - PLATELET COUNT 226 10^3/uL (130-450); RED CELL DISTRIBUTION WIDTH 14.8 % (12.0-15.0); WHITE BLOOD COUNT 5.8 x10^3/uL (4.8-10.8)
[2020-05-27 12:07] LABS: CREATININE,URINE 105.3 mg/dL; MICROALBUM/CREATININE RATIO,UR 350.4 ug/mg (<30.0); MICROALBUMIN,URINE 36.9 mg/dL (0-300.0)
[2020-05-27 12:10] LABS: ALBUMIN 3.7 g/dL (3.2-5.5); ALBUMIN/GLOBULIN RATIO 1.3 (1.0-2.2); ALKALINE PHOSPHATASE 61 IU/L (42-121); ALT ALANINE AMINOTRANSFERASE 20 IU/L (10-60); AST ASPARTATE AMINOTRANSFERASE 21 IU/L (10-42); BILIRUBIN,TOTAL 0.5 mg/dL (0.2-1.0); BUN - BLOOD UREA NITROGEN 16 mg/dL (6-20); CALCIUM 9.1 mg/dL (8.5-10.3); CARBON DIOXIDE - CO2 30 mmol/L (21-32); CHLORIDE 99 mmol/L (101-111); CHOL/HDL RATIO 1.5 (<4.4); CHOLESTEROL 183 mg/dL; CREATININE 0.6 mg/dL (0.4-1.0); GLUCOSE 137 mg/dL (70-100); HDL CHOLESTEROL 123 mg/dL; LDL CHOLESTEROL,CALCULATED 50 mg/dL; LDL/HDL RATIO 0.4 (<4.4); SODIUM 138 mmol/L (135-145); TOTAL PROTEIN 6.6 g/dL (6.7-8.2); VLDL CHOLESTEROL 10 mg/dL
[2020-05-27 12:14] LABS: HEMOGLOBIN A1c% 6.8 % (4.27-6.07)
== END 2020-05-27 23:59 | disposition home or self-care (01) ==
LOC: LAB.WCP 08:00
PROVIDERS: ATTEND Family Medicine
DX: E11.40 Type 2 diabetes mellitus with diabetic neuropathy, unspecified (principal)
CPT/HCPCS: 36415; 80053; 80061; 82043; 82570; 83036; 83721; 84443; 85025

== ENCOUNTER 2020-07-02 08:26 | Outpatient (CLI) | payer BC, OTHER ==
--- NOTE | 2020-07-02 08:54 | SLEEP CARE CONSULTATION ---
Information from patient questionnaire entered by Enma Marcano. I have reviewed and concur with the information entered by Enma Marcano. This document represents the service I personally performed and the decisions made by , Ama Prajapati ARNP. History of Present Illness Service Date and Time: 07/02/2020825 Previous diagnosis: Moderate, Obstructive Sleep Apnea-Hypopnea Syndrome AHI: 17.4 (in 2014) Reason for follow up: annual (last seen 2019) Equipment type: CPAP Equipment obtained from: [employer] Mask style: Nasal Backup mask available: Yes (old mask) Last cushion change: 2 weeks ago Prior sleep studies: Yes Year and Where: 2014 - [facility] Sleep Type of Sleep Study: Polysomnography HPI additional information: MARK DIAZ was diagnosed to have moderate, AHI 17.4, obstructive sleep apnea-hypopnea syndrome and returned today for CPAP therapy annual follow-up. Sleep Study - Results Prior sleep studies: Yes CPAP Compliance Data - Data Reviewed with Patient Average duration of nightly device use: 9.1 Compliance rate %: 99.4 (180 days) Current pressure setting (cmH2O): 10 Humidity settin Heated hose settin Average residual AHI: 2.9 Central apnea: 0.2 Obstructive apnea: 1.5 Average large leak: 10 sec Subjective Patient concerns: reports: dry mouth, nose, throat (occasional). denies: aerophagia, mask discomfort, air blowing in eyes, mask leak noise, condensation in mask/hose, nasal congestion, epistaxis, other Observed to snore while using device: No Current pressure setting perceived as: comfortable On therapy, patient: reports: sleeping better, awakening more refreshed, being more awake and alert during the day, more rested overall. denies: drowsiness while driving Initial [place] Sleepiness Scale score: 12 (in 2015) Current [place] Sleepiness Scale score: 0 Allergies and Home Medications Drug allergies reviewed: Yes (hydrocodone, oxycodone) Home medication list reviewed: Yes (started 25 mg losartan for BP) Review of Systems Review of systems same as previous: Yes (no changes) Physical Exam Heart Rate: 77 O2 Saturation: 98 Height: 5 ft 7 in Weight: 264 lb Body Mass Index: 41.3 BMI Classification: Morbidly Obese Impression and Plan 1. Obstructive Sleep Apnea-Hypopnea Syndrome, moderate, with good treatment compliance and good apnea control. On CPAP therapy, the patient has better sleep quality and is more rested overall. She has had occasional issues with dry mouth. She states she has regular dental cleanings every 3 months. She does not feel it is a problem. Oral dryness can be reduced by adjusting humidity setting higher or heated hose lower or by adjusting both settings. Oral instructions given on how to change humidity and heated hose settings with rationale explaining why to change. Patient advised that chronic oral dryness can affect dental health and advised to follow up with dentist. Patient's apnea severity and rationale for treatment to reduce apnea, improve sleep quality and reduce cardiovascular and cerebrovascular events was reviewed. I also reviewed the benefit of consistent device use of CPAP for hypertension, diabetes, and gastric reflux. * Continue CPAP pressure at 10 cmH2O * Notify me if snoring with mask or feeling that the pressure is too much or too little * Attempt to lose weight * Call this office if any problems using CPAP * Return for follow up in 1 year, or sooner if concerns arise Counseling Topics: Spare mask, Weight loss health impact Visit Type: In Office Time Spent with Patient (minutes): 16 Provider Statement: I spent 100% of the Face to Face Visit with the patient with greater than 50% spent counseling the patient and coordination of care.
== END 2020-07-02 08:27 | disposition home or self-care (01) ==
LOC: SC 08:26
PROVIDERS: ATTEND Nurse Practitioner Family
DX: G47.33 Obstructive sleep apnea (adult) (pediatric) (principal); E66.01 Morbid (severe) obesity due to excess calories; Z68.41 Body mass index [BMI] 40.0-44.9, adult
CPT/HCPCS: 99212

== ENCOUNTER 2020-10-22 08:00 | Outpatient (CLI) | payer BC, OTHER ==
[2020-10-22 12:35] LABS: BASOPHILS % (AUTO) 0.5 %; EOSINOPHILS # (AUTO) 0.2 10^3/uL (0.0-0.7); EOSINOPHILS % (AUTO) 2.8 %; HGB - HEMOGLOBIN 12.2 g/dL (12.0-16.0); LYMPHOCYTES # (AUTO) 1.3 10^3/uL (1.5-3.5); LYMPHOCYTES % (AUTO) 21.5 %; MEAN CORPUSCULAR HEMOGLOBIN 31.3 pg (27.0-31.0); MEAN CORPUSCULAR HGB CONC 31.3 g/dL (32.0-36.0); MEAN PLATELET VOLUME 10.4 fL (7.9-10.8); MONOCYTES # (AUTO) 0.5 10^3/uL (0.0-1.0); MONOCYTES % (AUTO) 8.6 %; NEUTROPHILS % (AUTO) 66.3 %; PLT - PLATELET COUNT 210 10^3/uL (130-450); RED CELL DISTRIBUTION WIDTH 14.6 % (12.0-15.0); WHITE BLOOD COUNT 6.1 x10^3/uL (4.8-10.8)
[2020-10-22 13:01] LABS: ALBUMIN 3.6 g/dL (3.2-5.5); ALBUMIN/GLOBULIN RATIO 1.2 (1.0-2.2); ALKALINE PHOSPHATASE 55 IU/L (42-121); ALT ALANINE AMINOTRANSFERASE 19 IU/L (10-60); AST ASPARTATE AMINOTRANSFERASE 22 IU/L (10-42); BILIRUBIN,TOTAL < 0.2 mg/dL (0.2-1.0); BUN - BLOOD UREA NITROGEN 20 mg/dL (6-20); CALCIUM 9.2 mg/dL (8.5-10.3); CARBON DIOXIDE - CO2 27 mmol/L (21-32); CHLORIDE 100 mmol/L (101-111); CHOL/HDL RATIO 1.5 (<4.4); CHOLESTEROL 187 mg/dL; CREATININE 0.7 mg/dL (0.4-1.0); GLUCOSE 141 mg/dL (70-100); HDL CHOLESTEROL 122 mg/dL; LDL CHOLESTEROL,CALCULATED 56 mg/dL; LDL/HDL RATIO 0.5 (<4.4); TOTAL PROTEIN 6.7 g/dL (6.7-8.2); VLDL CHOLESTEROL 9 mg/dL
[2020-10-22 13:04] LABS: HEMOGLOBIN A1c% 6.1 % (4.27-6.07)
[2020-10-22 13:19] LABS: CREATININE,URINE 156.6 mg/dL; MICROALBUMIN,URINE 47.6 mg/dL (0-300.0)
[2020-10-22 13:50] LABS: THYROID STIMULATING HORMONE 1.79 uIU/mL (0.34-5.60)
[2020-10-22 13:52] LABS: FREE T4 (FREE THYROXINE) 0.83 ng/dL (0.58-1.64)
== END 2020-10-22 23:59 | disposition home or self-care (01) ==
LOC: LAB.WCP 08:00
PROVIDERS: ATTEND Family Medicine
DX: E11.40 Type 2 diabetes mellitus with diabetic neuropathy, unspecified (principal)
CPT/HCPCS: 36415; 80053; 80061; 82043; 82570; 83036; 83721; 84439; 84443; 85025

== ENCOUNTER 2021-02-01 14:53 | Outpatient (CLI) | payer MEDICARE, OTHER ==
--- NOTE | 2021-02-01 15:30 | SLEEP CARE CONSULTATION ---
Information from patient questionnaire entered by Enma Marcano. I have reviewed and concur with the information entered by Enma Marcano. This document represents the service I personally performed and the decisions made by , Ama Prajapati ARNP. History of Present Illness Service Date and Time: 02/01/2021 1453 Previous diagnosis: Moderate, Severe, Obstructive Sleep Apnea-Hypopnea Syndrome AHI: 17.4 (in 2014) Reason for follow up: other (8 month; Medicare compliance ) Equipment type: CPAP Equipment obtained from: [employer] (was billed directly instead of insurance, wants to change) Mask style: Nasal Backup mask available: Yes (old mask) Last cushion change: 3 days ago Prior sleep studies: Yes Year and Where: 2014 - [facility] Sleep Type of Sleep Study: Polysomnography HPI additional information: MARK DIAZ was diagnosed to have moderate, AHI 17.4, obstructive sleep apnea-hypopnea syndrome and returned today for CPAP therapy 8 month Medicare compliance follow-up. CPAP Compliance Data - Data Reviewed with Patient Average duration of nightly device use: 8 hr 58 min Compliance rate %: 100 (last 30)(99.4 last 180) Current pressure setting (cmH2O): 10 Humidity settin Heated hose settin Average residual AHI: 2.8 Average large leak: 26 sec Subjective Patient concerns: denies: aerophagia, mask discomfort, air blowing in eyes, mask leak noise, condensation in mask/hose, nasal congestion, dry mouth, nose, throat, epistaxis, other Observed to snore while using device: No Current pressure setting perceived as: comfortable On therapy, patient: reports: sleeping better, awakening more refreshed, being more awake and alert during the day, more rested overall. denies: drowsiness while driving Initial [place] Sleepiness Scale score: 12 (in 2015) Current [place] Sleepiness Scale score: 0 Allergies and Home Medications Home medication list reviewed: Yes (no new meds) Review of Systems Review of systems same as previous: Yes (no changes) Physical Exam Heart Rate: 75 O2 Saturation: 96 Height: 5 ft 7 in Weight: 255 lb Body Mass Index: 39.9 BMI Classification: Obese Impression and Plan 1. Obstructive Sleep Apnea-Hypopnea Syndrome, moderate, with excellent treatment compliance and good apnea control. On CPAP therapy, the patient has better sleep quality and is more rested overall. She states she had monthly difficulty with [employer] because they would send her a bill instead of billing her insurance. She would talk to them and they would tell her that this was resolved and it would happen again. She had to get her insurance to send a letter to them to get them to bill because she was out of network. She would like to change to an in network DME supplier. I will have my home health outreach coordinator inform of DME optio ns. A DWO prescription will then be made. Patient advised to contact this office if further supply problems. She has not other concerns, is satisfied with her treatment and states she will continue to use the CPAP long-term. Patient's apnea severity and rationale for treatment to reduce apnea, improve sleep quality and reduce cardiovascular and cerebrovascular events was reviewed. I also reviewed the benefit of consistent device use of CPAP for hypertension, diabetes, and gastric reflux. * Continue auto CPAP pressure at 10 cmH2O * Transfer DME and update supplies * Notify me if snoring with mask or feeling that the pressure is too much or too little * Attempt to lose weight * Call this office if any problems using CPAP * Return for follow up in 1 year, or sooner if concerns arise Counseling Topics: Spare mask, Weight loss health impact Visit Type: In Office Time Spent with Patient (minutes): 15 Provider Statement: I spent 100% of the Face to Face Visit with the patient with greater than 50% spent counseling the patient and coordination of care.
== END 2021-02-01 14:54 | disposition home or self-care (01) ==
LOC: SC 14:53
PROVIDERS: ATTEND Nurse Practitioner Family
DX: G47.33 Obstructive sleep apnea (adult) (pediatric) (principal); E66.9 Obesity, unspecified; Z68.39 Body mass index [BMI] 39.0-39.9, adult
CPT/HCPCS: 99212; G0463

== ENCOUNTER 2021-02-09 08:13 | Outpatient (CLI) | payer MEDICARE, OTHER ==
[2021-02-09 11:58] LABS: CALCIUM 10.2 mg/dL (8.5-10.3); CREATININE 0.5 mg/dL (0.4-1.0); POTASSIUM 4.6 mmol/L (3.5-5.0)
[2021-02-09 12:12] LABS: ESTIMATED AVERAGE GLUCOSE 126 mg/dL (70-100)
== END 2021-02-09 23:59 | disposition home or self-care (01) ==
LOC: LAB.WCP 08:13
PROVIDERS: ATTEND Family Medicine
DX: E11.40 Type 2 diabetes mellitus with diabetic neuropathy, unspecified (principal)
CPT/HCPCS: 36415; 80048; 83036

== ENCOUNTER 2021-04-09 08:00 | Outpatient (CLI) | payer MEDICARE, OTHER | END 2021-04-09 23:59 | disposition home or self-care (01) | LOC: LAB.N 08:00 | PROVIDERS: ATTEND Nurse Practitioner | DX: R07.0 Pain in throat (principal); Z20.822 Contact with and (suspected) exposure to COVID-19 | CPT/HCPCS: 87070; U0004 ==

== ENCOUNTER 2021-04-29 16:20 | Outpatient (CLI) | payer MEDICARE, OTHER | END 2021-04-29 23:59 | disposition home or self-care (01) | LOC: LAB.WCP 16:20 | PROVIDERS: ATTEND Physician Assistant Medical | DX: L02.91 Cutaneous abscess, unspecified (principal) | CPT/HCPCS: 81599; 87070; 87077; 87181; 87205 ==

== ENCOUNTER 2021-05-20 08:25 | Outpatient (CLI) | payer MEDICARE, OTHER ==
--- NOTE | 2021-05-30 09:18 | Mammography Report ---
BILATERAL DIGITAL SCREENING MAMMOGRAM 3D/2D: 05/20/2021 CLINICAL: Routine screening. Comparison is made to exams dated: 06/10/2018 mammogram, 02/19/2017 mammogram, 10/11/2015 mammogram, 01/02 mammogram, 10/03/2011 mammogram, and 10/03/2011 ultrasound - [facility]. Ther e are scattered fibroglandular elements in both breasts. There are benign calcifications in both breasts. No significant masses, calcifications, or other findings are seen in either breast. There has been no significant interval change. IMPRESSION: BENIGN There is no mammographic evidence of malignancy. A 1 year screening mammogram is recommended. This exam was interpreted at Station ID: [id number]. NOTE: For mammograms, a report in lay terms will be sent to the patient. Approximately 15% of breast malignancies will not be visualized mammographically. In the management of a palpable breast mass, a negative mammogram must not discourage biopsy of a clinically suspicious lesion. Electronically Signed By: Michael Coulter M.D. ddp/[email or web address]:05/30/2021 08:28:04 ACR BI-RADS Category 2: Benign Finding(s) 3342F PARENCHYMAL PATTERN: (A) - The breast(s) demonstrate(s) scattered fibroglandular densities. BI-RADS CATEGORY: (2) - 2 RECOMMENDATION: (ANNUAL) - Recommend routine annual screening mammography. [id number] 1 year screening LATERALITY: (B)
== END 2021-05-20 08:26 | disposition home or self-care (01) ==
LOC: DI 08:25
DX: Z12.31 Encounter for screening mammogram for malignant neoplasm of breast (principal)

== ENCOUNTER 2021-05-20 15:24 | Outpatient (CLI) | payer MEDICARE, OTHER ==
--- NOTE | 2021-05-21 11:30 | Ultrasound Report ---
PROCEDURE: Duplex Ext Veins Bilateral INDICATIONS: Bilateral leg edema. TECHNIQUE: Real-time imaging, as well as color and pulse Doppler interrogation, were performed of the deep veins of both legs from the inguinal ligament to the popliteal fossa. COMPARISON: 08/15/2010, 05/11/2011 FINDINGS: The deep veins are normally compressible, and free of intraluminal thrombus. Color and pu lse Doppler demonstrate normal phasic intravascular flow. There is normal augmentation response to d istal compression maneuver. This study is limited by body habitus, particularly distally. IMPRESSION: No findings of deep venous thrombosis are seen. Reviewed by: Damien Parnell MD on 05/21/2021 10:29 AM NICHELLE Approved by: Damien Parnell MD on 05/21/2021 10:29 AM NICHELLE Station ID: [id number]
== END 2021-05-20 15:25 | disposition home or self-care (01) ==
LOC: DI 15:24
PROVIDERS: ATTEND Family Medicine
DX: R60.0 Localized edema (principal)
CPT/HCPCS: 93970

== ENCOUNTER 2021-06-17 17:16 | Emergency (ER) | payer OTHER, MEDICARE ==
[2021-06-17] MEDS ORDERED: KETOROLAC 60 MG/2 ML VIAL IM STA (18:38)
--- NOTE | 2021-06-17 18:43 | ED Physician Documentation ---
History of Present Illness - Stated complaint Stated Complaint: FALL, RIGHT SIDE & BACK PX - Chief complaint Chief Complaint: Trauma Ch/Bk - History obtained from History obtained from: Patient - History of Present Illness Timing: Today Pain level max: 6 Pain level now: 6 - Additonal information Additional information: Patient is a 65-year-old female who was at work today carrying a crate when she tripped and fell, injuring her right ribs and right elbow. Worse with movement, better with rest. No head injury. No neck or back pain. Has not taken anything for pain Review of Systems Constitutional: denies: Fever, Chills Nose: denies: Rhinorrhea / runny nose, Congestion Respiratory: denies: Cough GI: denies: Nausea, Vomiting, Diarrhea Skin: denies: Rash Musculoskeletal: denies: Neck pain, Back pain Neurologic: denies: Confused, Headache, Head injury, LOC PD PAST MEDICAL HISTORY - Past Medical History Cardiovascular: Congestive heart failure, Hypertension, High cholesterol, Other Respiratory: Pneumonia, Sleep apnea, CPAP use Endocrine/Autoimmune: Type 2 diabetes GI: Colon polyps, Chronic constipation, Other : None HEENT: Other Psych: None Musculoskeletal: Chronic back pain, Other Derm: None - Past Surgical History General: Bowel surgery, Colonoscopy Ortho: 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: Tubal 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, Hysterectomy - Present Medications Home Medications: Ambulatory Orders Medication Instructions Recorded Confirmed Acyclovir 400 mg PO BID 07/04/13 08/14/17 Atorvastatin Calcium 40 mg PO QPM 07/04/13 08/14/17 Carvedilol 25 mg PO DAILY 07/04/13 08/14/17 Estrogens, Conjugated [Premarin] 0.3 mg PO DAILY 07/04/13 08/14/17 Insulin Aspart [NovoLOG] 3 - 5 unit SUBQ TIDWM 07/04/13 08/14/17 Insulin Glargine,Hum.rec.anlog 15 unit SQ BID 07/04/13 08/14/17 [Lantus] Lisinopril 10 mg PO BID 07/04/13 08/14/17 Multivitamin [Multivitamins] 1 each PO DAILY 07/04/13 08/14/17 Omeprazole [PriLOSEC] 20 mg PO DAILY 07/04/13 08/14/17 hydroCHLOROthiazide [Hydrodiuril] 25 mg PO DAILY 07/04/13 08/14/17 Aspirin EC [Ecotrin] 325 mg PO DAILY 08/09/17 08/14/17 Dulaglutide [Trulicity] 1.5 mg SQ ONCE 08/09/17 08/14/17 Metformin HCl [Glucophage] 1,000 mg PO BID 08/09/17 08/14/17 predniSONE [Deltasone] 10 mg PO [id number] #42 tab 08/19/19 Lidocaine Patch 5% [Lidoderm Patch] 1 patch TOP DAILY PRN #10 patch 06/17/21 traMADol [Ultram] 50 - 100 mg PO Q6H PRN #30 tablet 06/17/21 - Allergies Allergies/Adverse Reactions: Allergies Allergy/AdvReac Type Severity Reaction Status Date / Time hydrocodone [Hydrocodone] AdvReac Mild Nausea Verified 06/17/21 17:22 oxycodone AdvReac Nausea Verified 06/17/21 17:22 - Social History Does the pt smoke?: No Smoking Status: Never smoker Does the pt drink ETOH?: Yes Does the pt have substance abuse?: No PD ED PE NORMAL - Vitals Vital signs reviewed: Yes - General General: Alert and oriented X 3, No acute distress - HEENT HEENT: Atraumatic, PERRL, Moist mucous membranes - Neck Neck: Supple, no meningeal sign, No bony TTP - Cardiac Cardiac: RRR - Respiratory Respiratory: No respiratory distress, Clear bilaterally - Abdomen Abdomen: Soft, Non tender, Non distended - Back Back: No spinal TTP - Derm Derm: Warm and dry - Extremities Extremities: Other (Tender to palpation over the right elbow. No focal tenderness. Mild swelling and bruising. 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 No crepitus. No ecchymosis. Results - Vitals Vitals: Vital Signs - 24 hr 06/17/21 06/17/21 17:23 19:36 Temperature 36.8 C 37.4 C Heart Rate 87 76 Respiratory 22 19 Rate Blood Pressure 199/75 H 153/83 H O2 Saturation 97 95 Oxygen O2 Source Room air - Rads (name of study) Right rib with chest x-ray Radiology: Final report received, EMP read contemporaneously, See rad report (Mildly displaced right fourth rib fracture. ) Right elbow x-ray Radiology: Final report received, EMP read contemporaneously, See rad report (No definitive fractures. There is, however, a small elbow effusion. Cannot rule out an old fracture. A follow-up examination is suggested in 7-10 days if clinical symptoms persist. ) PD MEDICAL DECISION MAKING - ED course Complexity details: reviewed results, re-evaluated patient, considered differential, d/w patient ED course: 65-year-old female with a right fourth rib fracture after a fall at work. Will place on pain medication and Lidoderm patches. She also has a small elbow effusion and contusion. Full range of motion of the elbow. Declines a splint or sling. She will follow up with her doctor next week for repeat evaluation. No head, neck, back pain. Patient counseled regarding signs and symptoms for which I believe and urgent re-evaluation would be necessary. Patient with good understanding of and agreement to plan and is comfortable going home at this time This document was made in part using voice recognition software. While efforts are made to proofread this document, sound alike and grammatical errors may occur. I am prescribing a short course of short-acting opioid pain medication for this patient. 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 I have discussed that the opioids are for short term therapy only, and will not be refilled from the ED. Departure - Departure Disposition: 01 Home, Self Care Clinical Impression: Rib fracture Qualifiers: Encounter type: initial encounter Rib fracture type: single rib Fracture type: closed Laterality: right Qualified Code(s): S22.31XA - Fracture of one rib, right side, initial encounter for closed fracture Contusion of elbow Qualifiers: Encounter type: initial encounter Laterality: right Qualified Code(s): S50.01XA - Contusion of right elbow, initial encounter Condition: Good Instructions: ED Contusion Elbow, ED Fx Rib Follow-Up: Gadiel Campos DO [Primary Care Provider] - Within 1 week Prescriptions: Lidocaine Patch 5% [Lidoderm Patch] 1 patch TOP DAILY PRN #10 patch PRN Reason: pain traMADol [Ultram] 50 - 100 mg PO Q6H PRN #30 tablet PRN Reason: rib pain Comments: Follow-up with your doctor for further care. Return if you worsen. If you are still having elbow pain in 1 week, you should have a repeat x-ray to exclude any occult fracture. It does appear that you have a right-sided fourth rib fracture today. This will take several weeks to heal. Your prescriptions were sent to [facility] in [place] I am prescribing a short course of narcotic pain medication for you. These are potentially dangerous and addictive medications that should be used carefully. These medications may constipate you. Take an libq-sqw-gabdmct stool softener (docusate) twice daily with plenty of water while taking these medications. If you go 24 hours without a bowel movement, take ofwz-dox-tpvvrrf miralax, per package instructions. Do not drink or drive while taking these medications. If you received narcotic or sedating medications while in the emergency department, do not drive for 24 hours. Store this medication in a safe, secure place and out of reach of children. It is a violation of federal law to give or sell this medication to another person or to use in a manner other than prescribed. The ED will not refill narcotic prescriptions, including prescriptions lost or stolen. To dispose of unwanted medications: 1. [facility] at [address] in [place] has a medication drop box. They accept prescription medications (in pill form) Sunday through Sunday 9:00 a.m. to 5:00 p.m. 2. The [facility] [employer] accepts prescription medications (in pill form only) for disposal year round. Call for more information. 3. Contact the [facility] for the next [facility] sponsored prescription drug collection event. , [phone], or [phone]; Discharge Date/Time: 06/17/21 20:18
[2021-06-17 19:36] VITALS: BP 153/83
--- NOTE | 2021-06-17 19:38 | XRAY Report ---
PROCEDURE: Elbow 3 View RT INDICATIONS: R elbow pain s/p fall TECHNIQUE: 3 views of the elbow were acquired. COMPARISON: None FINDINGS: Bones: No fractures or dislocations. No suspicious bony lesions. Soft tissues: Small elbow joint effusion. No suspicious soft tissue calcifications. IMPRESSION: No definitive fractures. There is, however, a small elbow effusion. Cannot rule out an old fracture. A follow-up examination is suggested in 7-10 days if clinical symptoms persist. Reviewed by: Constance Rao MD on 06/17/2021 7:37 PM PDT Approved by: Constance Rao MD on 06/17/2021 7:37 PM PDT Station ID: [id number]
--- NOTE | 2021-06-17 19:40 | XRAY Report ---
PROCEDURE: Ribs w/PA Chest RT INDICATIONS: R rib injury TECHNIQUE: 3 views of the right ribs were acquired, along with a single view chest. COMPARISON: None. FINDINGS: Surgical changes and devices: None. Bones and chest wall: No displaced fracture of the right fourth rib. No suspicious bony lesions. Ov erlying soft tissues appear unremarkable. Lungs and pleura: No pleural effusions or pneumothorax. Lungs appear clear. Mediastinum: Mediastinal contours appear normal. Heart size is normal. IMPRESSION: Mildly displaced right fourth rib fracture. Reviewed by: Constance Rao MD on 06/17/2021 7:39 PM PDT Approved by: Constance Rao MD on 06/17/2021 7:39 PM PDT Station ID: [id number]
[2021-06-17] MEDS ORDERED: traMADol 50 MG TABLET PO STA (19:55)
[2021-06-17] MEDS ORDERED: LIDOCAINE PATCH 5% TOP STA (19:55)
== END 2021-06-17 20:18 | disposition home or self-care (01) ==
LOC: ED 17:16
DX: S22.31XA Fracture of one rib, right side, initial encounter for closed fracture (principal); S50.01XA Contusion of right elbow, initial encounter; W01.0XXA Fall on same level from slipping, tripping and stumbling without subsequent striking against object, initial encounter; Y93.89 Activity, other specified; Y99.0 Civilian activity done for income or pay; I10 Essential (primary) hypertension; E11.9 Type 2 diabetes mellitus without complications; Z79.4 Long term (current) use of insulin; Z79.84 Long term (current) use of oral hypoglycemic drugs; Z79.82 Long term (current) use of aspirin
CPT/HCPCS: 71101; 73080; 96372; 99284; A9270

== ENCOUNTER 2021-06-22 12:26 | Outpatient (CLI) | payer MEDICARE, OTHER ==
[2021-06-22 19:13] LABS: ALBUMIN 3.7 g/dL (3.2-5.5); ALBUMIN/GLOBULIN RATIO 1.2 (1.0-2.2); ALKALINE PHOSPHATASE 68 IU/L (42-121); ALT ALANINE AMINOTRANSFERASE 18 IU/L (10-60); AST ASPARTATE AMINOTRANSFERASE 27 IU/L (10-42); BILIRUBIN,TOTAL 0.3 mg/dL (0.2-1.0); BUN - BLOOD UREA NITROGEN 16 mg/dL (6-20); CALCIUM 9.3 mg/dL (8.5-10.3); CARBON DIOXIDE - CO2 30 mmol/L (21-32); CHLORIDE 96 mmol/L (101-111); CHOL/HDL RATIO 1.5 (<4.4); CHOLESTEROL 162 mg/dL; CREATININE 0.6 mg/dL (0.4-1.0); GFR - MDRD 100 (>89); GLUCOSE 82 mg/dL (70-100); HDL CHOLESTEROL 106 mg/dL; LDL CHOLESTEROL,CALCULATED 45 mg/dL; LDL/HDL RATIO 0.4 (<4.4); POTASSIUM 4.5 mmol/L (3.5-5.0); SODIUM 138 mmol/L (135-145); TOTAL PROTEIN 6.7 g/dL (6.7-8.2); TRIGLYCERIDES 56 mg/dL; VLDL CHOLESTEROL 11 mg/dL
[2021-06-22 19:42] LABS: CREATININE,URINE 97.4 mg/dL; PROTEIN/CREATININE RATIO,URINE 0.3 (<=0.2)
[2021-06-22 21:03] LABS: ESTIMATED AVERAGE GLUCOSE 140 mg/dL (70-100); HEMOGLOBIN A1c% 6.5 % (4.27-6.07)
== END 2021-06-22 23:55 | disposition home or self-care (01) ==
LOC: LAB.WCP 12:26
PROVIDERS: ATTEND Family Medicine
DX: E11.40 Type 2 diabetes mellitus with diabetic neuropathy, unspecified (principal); I42.9 Cardiomyopathy, unspecified; I10 Essential (primary) hypertension; R06.02 Shortness of breath
CPT/HCPCS: 36415; 80053; 80061; 82570; 83036; 83721; 84156

== ENCOUNTER 2021-07-22 08:00 | Outpatient (CLI) | payer MEDICARE, OTHER | END 2021-07-22 23:59 | disposition home or self-care (01) | LOC: LAB.N 08:00 | PROVIDERS: ATTEND Nurse Practitioner | DX: J06.9 Acute upper respiratory infection, unspecified (principal); Z20.822 Contact with and (suspected) exposure to COVID-19 | CPT/HCPCS: 87070; U0004 ==

== ENCOUNTER 2021-10-10 08:00 | Outpatient (CLI) | payer MEDICARE, OTHER | END 2021-10-10 23:59 | LOC: LAB.N 08:00 | PROVIDERS: ATTEND Physician Assistant Medical | DX: R05.9 Cough, unspecified (principal); Z20.822 Contact with and (suspected) exposure to COVID-19 ==

== ENCOUNTER 2021-11-25 13:40 | Outpatient (CLI) | payer MEDICARE, OTHER ==
[2021-11-25 19:31] LABS: ALBUMIN 3.8 g/dL (3.2-5.5); ALBUMIN/GLOBULIN RATIO 1.3 (1.0-2.2); ALKALINE PHOSPHATASE 56 IU/L (42-121); ALT ALANINE AMINOTRANSFERASE 19 IU/L (10-60); AST ASPARTATE AMINOTRANSFERASE 22 IU/L (10-42); BILIRUBIN,TOTAL 0.6 mg/dL (0.2-1.0); BUN - BLOOD UREA NITROGEN 21 mg/dL (6-20); CALCIUM 9.3 mg/dL (8.5-10.3); CARBON DIOXIDE - CO2 30 mmol/L (21-32); CHLORIDE 93 mmol/L (101-111); CHOL/HDL RATIO 1.6 (<4.4); CHOLESTEROL 206 mg/dL; CREATININE 0.6 mg/dL (0.4-1.0); GFR - MDRD 100 (>89); GLUCOSE 148 mg/dL (70-100); HDL CHOLESTEROL 132 mg/dL; LDL CHOLESTEROL,CALCULATED 60 mg/dL; LDL/HDL RATIO 0.5 (<4.4); POTASSIUM 4.9 mmol/L (3.5-5.0); SODIUM 137 mmol/L (135-145); TOTAL PROTEIN 6.8 g/dL (6.7-8.2); TRIGLYCERIDES 70 mg/dL; VLDL CHOLESTEROL 14 mg/dL
[2021-11-25 20:34] LABS: ESTIMATED AVERAGE GLUCOSE 134 mg/dL (70-100); HEMOGLOBIN A1c% 6.3 % (4.27-6.07)
== END 2021-11-25 13:41 | disposition home or self-care (01) ==
LOC: LAB.N 13:40
PROVIDERS: ATTEND Family Medicine
DX: E11.9 Type 2 diabetes mellitus without complications (principal)
CPT/HCPCS: 36415; 80053; 80061; 83036; 83721

== ENCOUNTER 2022-02-27 13:23 | Outpatient (CLI) | payer MEDICARE, OTHER ==
[2022-02-27 17:45] LABS: BASOPHILS % (AUTO) 0.6 %; EOSINOPHILS # (AUTO) 0.1 10^3/uL (0.0-0.7); EOSINOPHILS % (AUTO) 2.1 %; HCT - HEMATOCRIT 37.5 % (37.0-47.0); HGB - HEMOGLOBIN 11.9 g/dL (12.0-16.0); LYMPHOCYTES # (AUTO) 1.5 10^3/uL (1.5-3.5); LYMPHOCYTES % (AUTO) 24.8 %; MEAN CORPUSCULAR HGB CONC 31.7 g/dL (32.0-36.0); MEAN CORPUSCULAR VOLUME 100.8 fL (81.0-99.0); MEAN PLATELET VOLUME 10.6 fL (7.9-10.8); MONOCYTES # (AUTO) 0.6 10^3/uL (0.0-1.0); MONOCYTES % (AUTO) 9.5 %; NEUTROPHILS # (AUTO) 3.9 10^3/uL (1.5-6.6); NEUTROPHILS % (AUTO) 62.5 %; PLT - PLATELET COUNT 185 10^3/uL (130-450); RED BLOOD COUNT 3.72 10^6/uL (4.20-5.40); RED CELL DISTRIBUTION WIDTH 14.2 % (12.0-15.0); WHITE BLOOD COUNT 6.2 x10^3/uL (4.8-10.8)
[2022-02-27 18:22] LABS: ALBUMIN 3.7 g/dL (3.2-5.5); ALBUMIN/GLOBULIN RATIO 1.1 (1.0-2.2); ALKALINE PHOSPHATASE 62 IU/L (42-121); ALT ALANINE AMINOTRANSFERASE 20 IU/L (10-60); AST ASPARTATE AMINOTRANSFERASE 25 IU/L (10-42); BILIRUBIN,TOTAL 0.6 mg/dL (0.2-1.0); BUN - BLOOD UREA NITROGEN 19 mg/dL (6-20); CALCIUM 9.4 mg/dL (8.5-10.3); CARBON DIOXIDE - CO2 29 mmol/L (21-32); CHLORIDE 97 mmol/L (101-111); CHOL/HDL RATIO 1.5 (<4.4); CHOLESTEROL 200 mg/dL; CREATININE 0.6 mg/dL (0.4-1.0); GFR - MDRD 100 (>89); GLUCOSE 136 mg/dL (70-100); HDL CHOLESTEROL 130 mg/dL; LDL CHOLESTEROL,CALCULATED 57 mg/dL; LDL/HDL RATIO 0.4 (<4.4); POTASSIUM 4.9 mmol/L (3.5-5.0); SODIUM 137 mmol/L (135-145); TOTAL PROTEIN 7.1 g/dL (6.7-8.2); TRIGLYCERIDES 64 mg/dL; VLDL CHOLESTEROL 13 mg/dL
[2022-02-27 18:41] LABS: ESTIMATED AVERAGE GLUCOSE 131 mg/dL (70-100); HEMOGLOBIN A1c% 6.2 % (4.27-6.07)
[2022-02-27 19:01] LABS: THYROID STIMULATING HORMONE 1.26 uIU/mL (0.34-5.60)
== END 2022-02-27 13:24 | disposition home or self-care (01) ==
LOC: LAB.N 13:23
PROVIDERS: ATTEND Nurse Practitioner Family
DX: E11.40 Type 2 diabetes mellitus with diabetic neuropathy, unspecified (principal); Z79.4 Long term (current) use of insulin
CPT/HCPCS: 36415; 80053; 80061; 83036; 83721; 84443; 85025

== ENCOUNTER 2022-10-31 15:08 | Outpatient (CLI) | payer MEDICARE, OTHER ==
--- NOTE | 2022-11-01 10:28 | Ultrasound Report ---
PROCEDURE: Duplex Lwr Ext Arterial Bilat INDICATIONS: BILAT LEG WEAKNESS, PERIPHERAL NEUROPATHY TECHNIQUE: Color and pulse Doppler interrogation was performed of both lower extremity arterial systems, with im age documentation. COMPARISON: None FINDINGS: Right lower extremity: Common femoral artery: 180.5 cm/sec, with triphasic flow. Deep femoral artery: 75.1 cm/sec, with triphasic flow. Proximal superficial femoral artery: 130.9 cm/sec, with triphasic flow. Mid superficial femoral artery: 133.7 cm/sec, with biphasic flow. Distal superficial femoral artery: 126.8 cm/sec, with biphasic flow. Popliteal artery: 83.7 cm/sec, with biphasic flow. Posterior tibial artery: 152.5 cm/sec, with biphasic flow. Not well seen however. Anterior tibial artery/dorsalis pedis: 93.9/44.7 cm/sec, with biphasic flow. Not well seen however Lim-scale imaging description: Diffuse calcified plaque. Left lower extremity: Common femoral artery: 126.0 cm/sec, with triphasic flow. Deep femoral artery: 122 cm/sec, with biphasic flow. Proximal superficial femoral artery: 97.0 cm/sec, with triphasic flow. Mid superficial femoral artery: 141.5 cm/sec, with biphasic flow. Distal superficial femoral artery: 119.1 cm/sec, with biphasic flow. Popliteal artery: 75.9 cm/sec, with biphasic flow. Posterior tibial artery: 139.2 cm/sec, with biphasic flow. Anterior tibial artery/dorsalis pedis: 106.1/22 cm/sec, with biphasic flow. Lim-scale imaging description: Diffuse calcified plaque IMPRESSION: Diffuse calcified plaque bilaterally with no significant stenosis. Reviewed by: Dexter Nuñez on 11/01/2022 10:27 AM PST Approved by: Dexter Nuñez on 11/01/2022 10:27 AM PST Station ID: [id number]
--- NOTE | 2022-11-01 10:29 | Ultrasound Report ---
PROCEDURE: Ankle Brachial Index INDICATIONS: BILAT LEG WEAKNESS, PERIPHERAL NEUROPATHY TECHNIQUE: Ankle-brachial indices were obtained bilaterally and recorded. COMPARISONS: None. FINDINGS: Right ankle brachial index (IVANA): 0.78 Left ankle brachial index (IVANA): 0.84 Healing potential: Ankle pressures >55 mm Hg in non-diabetics and >80 mm Hg in diabetics are likely to achieve primary h ealing of ischemic foot ulcers. Toe pressures >30 mm Hg are likely to achieve primary healing of ischemic foot ulcers, toe or transme tatarsal amputations. IMPRESSION: 1. Right IVANA 0.78 2. Left IVANA 0.84 Reviewed by: Dexter Nuñez on 11/01/2022 10:28 AM [facility] Approved by: Dexter Nuñez on 11/01/2022 10:28 AM [facility] Station ID: [id number]
== END 2022-10-31 15:09 | disposition home or self-care (01) ==
LOC: DI 15:08
PROVIDERS: ATTEND Nurse Practitioner Family
DX: R29.898 Other symptoms and signs involving the musculoskeletal system (principal); E11.40 Type 2 diabetes mellitus with diabetic neuropathy, unspecified; E78.5 Hyperlipidemia, unspecified; I70.202 Unspecified atherosclerosis of native arteries of extremities, left leg; I70.201 Unspecified atherosclerosis of native arteries of extremities, right leg
CPT/HCPCS: 93922; 93925

== ENCOUNTER 2023-01-24 13:35 | Outpatient (CLI) | payer MEDICARE, OTHER ==
[2023-01-24 17:48] LABS: BASOPHILS % (AUTO) 0.5 %; EOSINOPHILS # (AUTO) 0.1 10^3/uL (0.0-0.7); EOSINOPHILS % (AUTO) 1.4 %; HCT - HEMATOCRIT 36.9 % (37.0-47.0); HGB - HEMOGLOBIN 11.7 g/dL (12.0-16.0); LYMPHOCYTES # (AUTO) 1.3 10^3/uL (1.5-3.5); LYMPHOCYTES % (AUTO) 22.5 %; MEAN CORPUSCULAR HEMOGLOBIN 32.2 pg (27.0-31.0); MEAN CORPUSCULAR HGB CONC 31.7 g/dL (32.0-36.0); MEAN CORPUSCULAR VOLUME 101.7 fL (81.0-99.0); MEAN PLATELET VOLUME 10.3 fL (7.9-10.8); MONOCYTES # (AUTO) 0.6 10^3/uL (0.0-1.0); MONOCYTES % (AUTO) 9.8 %; NEUTROPHILS # (AUTO) 3.7 10^3/uL (1.5-6.6); NEUTROPHILS % (AUTO) 65.4 %; PLT - PLATELET COUNT 201 10^3/uL (130-450); RED BLOOD COUNT 3.63 10^6/uL (4.20-5.40); RED CELL DISTRIBUTION WIDTH 14.5 % (12.0-15.0); WHITE BLOOD COUNT 5.6 x10^3/uL (4.8-10.8)
[2023-01-24 18:23] LABS: THYROID STIMULATING HORMONE 1.02 uIU/mL (0.34-5.60)
[2023-01-24 18:32] LABS: FOLATE 7.53 ng/mL (5.90 - >24.8)
[2023-01-24 18:38] LABS: ALBUMIN 3.8 g/dL (3.2-5.5); ALBUMIN/GLOBULIN RATIO 1.2 (1.0-2.2); ALKALINE PHOSPHATASE 67 IU/L (42-121); ALT ALANINE AMINOTRANSFERASE 17 IU/L (10-60); AST ASPARTATE AMINOTRANSFERASE 23 IU/L (10-42); BILIRUBIN,TOTAL 0.5 mg/dL (0.2-1.0); BUN - BLOOD UREA NITROGEN 17 mg/dL (6-20); CARBON DIOXIDE - CO2 29 mmol/L (21-32); CHLORIDE 103 mmol/L (101-111); CHOL/HDL RATIO 1.6 (<4.4); CHOLESTEROL 218 mg/dL; CREATININE 0.6 mg/dL (0.4-1.0); GFR - MDRD 100 (>89); GLUCOSE 143 mg/dL (70-100); HDL CHOLESTEROL 139 mg/dL; LDL CHOLESTEROL,CALCULATED 70 mg/dL; LDL/HDL RATIO 0.5 (<4.4); SODIUM 138 mmol/L (135-145); TOTAL PROTEIN 7.1 g/dL (6.7-8.2); TRIGLYCERIDES 46 mg/dL; VLDL CHOLESTEROL 9 mg/dL
[2023-01-24 20:00] LABS: ESTIMATED AVERAGE GLUCOSE 120 mg/dL (70-100); HEMOGLOBIN A1c% 5.8 % (4.27-6.07)
== END 2023-01-24 13:36 | disposition home or self-care (01) ==
LOC: LAB.N 13:35
PROVIDERS: ATTEND Nurse Practitioner Family
DX: I10 Essential (primary) hypertension (principal); E78.5 Hyperlipidemia, unspecified; E11.9 Type 2 diabetes mellitus without complications; D53.9 Nutritional anemia, unspecified
CPT/HCPCS: 36415; 80053; 80061; 82607; 82746; 83036; 83721; 84443; 85025

== ENCOUNTER 2023-07-11 13:56 | Outpatient (CLI) | payer MEDICARE, OTHER ==
[2023-07-11 17:33] LABS: BASOPHILS % (AUTO) 0.5 %; EOSINOPHILS # (AUTO) 0.1 10^3/uL (0.0-0.7); EOSINOPHILS % (AUTO) 2.2 %; HGB - HEMOGLOBIN 11.9 g/dL (12.0-16.0); LYMPHOCYTES # (AUTO) 1.5 10^3/uL (1.5-3.5); LYMPHOCYTES % (AUTO) 23.1 %; MEAN CORPUSCULAR HGB CONC 31.3 g/dL (32.0-36.0); MEAN CORPUSCULAR VOLUME 102.2 fL (81.0-99.0); MEAN PLATELET VOLUME 10.1 fL (7.9-10.8); MONOCYTES # (AUTO) 0.6 10^3/uL (0.0-1.0); MONOCYTES % (AUTO) 8.8 %; NEUTROPHILS # (AUTO) 4.1 10^3/uL (1.5-6.6); NEUTROPHILS % (AUTO) 65.1 %; PLT - PLATELET COUNT 193 10^3/uL (130-450); RED BLOOD COUNT 3.72 10^6/uL (4.20-5.40); RED CELL DISTRIBUTION WIDTH 14.1 % (12.0-15.0); WHITE BLOOD COUNT 6.3 x10^3/uL (4.8-10.8)
[2023-07-11 18:20] LABS: ALBUMIN/GLOBULIN RATIO 1.5 (1.0-2.2); BILIRUBIN,TOTAL 0.4 mg/dL (0.2-1.0); CALCIUM 9.4 mg/dL (8.5-10.3); CREATININE 0.6 mg/dL (0.6-1.3); POTASSIUM 4.7 mmol/L (3.5-4.5); TOTAL PROTEIN 6.6 g/dL (6.4-8.9)
[2023-07-11 18:25] LABS: THYROID STIMULATING HORMONE 1.11 uIU/mL (0.34-5.60)
[2023-07-11 18:52] LABS: CREATININE,URINE 131.4 mg/dL; MICROALBUM/CREATININE RATIO,UR 222.2 ug/mg (<30.0); MICROALBUMIN,URINE 29.2 mg/dL
[2023-07-11 21:03] LABS: ESTIMATED AVERAGE GLUCOSE 131 mg/dL (70-100); HEMOGLOBIN A1c% 6.2 % (4.27-6.07)
== END 2023-07-11 13:57 | disposition home or self-care (01) ==
LOC: LAB.N 13:56
PROVIDERS: ATTEND Nurse Practitioner Family
DX: I10 Essential (primary) hypertension (principal); E78.5 Hyperlipidemia, unspecified; E11.9 Type 2 diabetes mellitus without complications
CPT/HCPCS: 36415; 80053; 82043; 82570; 83036; 84443; 85025

== ENCOUNTER 2023-10-17 13:11 | Outpatient (CLI) | payer MEDICARE, OTHER ==
[2023-10-17 17:44] LABS: BASOPHILS % (AUTO) 0.6 %; EOSINOPHILS # (AUTO) 0.1 10^3/uL (0.0-0.7); EOSINOPHILS % (AUTO) 1.7 %; HCT - HEMATOCRIT 38.9 % (37.0-47.0); HGB - HEMOGLOBIN 12.4 g/dL (12.0-16.0); LYMPHOCYTES # (AUTO) 1.3 10^3/uL (1.5-3.5); LYMPHOCYTES % (AUTO) 24.7 %; MEAN CORPUSCULAR HGB CONC 31.9 g/dL (32.0-36.0); MEAN CORPUSCULAR VOLUME 100.3 fL (81.0-99.0); MEAN PLATELET VOLUME 9.8 fL (7.9-10.8); MONOCYTES # (AUTO) 0.5 10^3/uL (0.0-1.0); NEUTROPHILS # (AUTO) 3.4 10^3/uL (1.5-6.6); NEUTROPHILS % (AUTO) 62.8 %; PLT - PLATELET COUNT 211 10^3/uL (130-450); RED BLOOD COUNT 3.88 10^6/uL (4.20-5.40); WHITE BLOOD COUNT 5.4 x10^3/uL (4.8-10.8)
[2023-10-17 18:15] LABS: ALBUMIN 3.9 g/dL (3.2-5.5); ALBUMIN/GLOBULIN RATIO 1.5 (1.0-2.2); BILIRUBIN,TOTAL 0.3 mg/dL (0.2-1.0); CALCIUM 9.4 mg/dL (8.5-10.3); CREATININE 0.6 mg/dL (0.6-1.3); POTASSIUM 4.4 mmol/L (3.5-4.5); TOTAL PROTEIN 6.5 g/dL (6.4-8.9)
== END 2023-10-17 13:12 | disposition home or self-care (01) ==
LOC: LAB.N 13:11
PROVIDERS: ATTEND Nurse Practitioner Family
DX: I10 Essential (primary) hypertension (principal); R42 Dizziness and giddiness; E87.5 Hyperkalemia; E66.01 Morbid (severe) obesity due to excess calories; E11.9 Type 2 diabetes mellitus without complications
CPT/HCPCS: 36415; 80053; 85025

== ENCOUNTER 2023-10-25 15:06 | Outpatient (CLI) | payer MEDICARE, OTHER ==
--- NOTE | 2023-10-25 17:12 | Ultrasound Report ---
PROCEDURE: Carotid Doppler Complete INDICATIONS: LIGHT HEADEDNESS, HTN TECHNIQUE: Color and pulse Doppler interrogation was performed of both carotid systems, with image documentation and velocity measurements. COMPARISON: None. FINDINGS: Right side: Brachial blood pressure: 182/86 mm Hg. Common carotid artery peak systolic velocity: 87 cm/sec. Internal carotid artery peak systolic velocity: 97 cm/sec. Internal carotid artery end diastolic velocity: 15 cm/sec. External carotid artery peak systolic velocity: 141 cm/sec. ICA/CCA peak systolic ratio: 1.1 . Lim scale imaging description: No significant atherosclerotic plaque. Percent internal carotid artery stenosis: Less than 50 percent stenosis. Vertebral artery: Flow direction is antegrade. Left side: Brachial blood pressure: 182/81 mm Hg. Common carotid artery peak systolic velocity: 88 cm/sec. Internal carotid artery peak systolic velocity: 87 cm/sec. Internal carotid artery end diastolic velocity: 14 cm/sec. External carotid artery peak systolic velocity: 181 cm/sec. ICA/CCA peak systolic ratio: 1 . Lim scale imaging description: Moderate atherosclerotic plaque. Percent internal carotid artery stenosis: Less than 50 percent stenosis. Vertebral artery: Flow direction is antegrade. IMPRESSION: 1. In the right internal carotid artery, there is less than 50 percent stenosis based on peak systoli c velocity criteria. 2. In the left internal carotid artery, there is less than 50 percent stenosis based on peak systolic velocity criteria. 3. Antegrade blood flow within the right vertebral artery. 4. Antegrade blood flow within the left vertebral artery. The estimate of stenosis included in the report of the imaging study was calculated using the [facility]-end orsed standards of carotid artery stenosis. Reviewed by: Ezio Dow MD on 10/25/2023 5:11 PM PST Approved by: Ezio Dow MD on 10/25/2023 5:11 PM PST Station ID: [id number]
== END 2023-10-25 15:07 | disposition home or self-care (01) ==
LOC: DI 15:06
PROVIDERS: ATTEND Nurse Practitioner Family
DX: I65.22 Occlusion and stenosis of left carotid artery (principal)
CPT/HCPCS: 93880

== ENCOUNTER 2023-11-26 12:40 | Emergency (ER) | payer MEDICARE, OTHER ==
[2023-11-26 13:28] LABS: BILIRUBIN,URINE NEGATIVE (NEGATIVE); GLUCOSE, URINE (UA) NEGATIVE (NEGATIVE); KETONES,URINE (UA) NEGATIVE (NEGATIVE); LEUKOCYTE ESTERASE, URINE NEGATIVE (NEGATIVE); NITRITE,URINE NEGATIVE (NEGATIVE); OCCULT BLOOD,URINE NEGATIVE (NEGATIVE); PH,URINE 6.5 PH (5.0-7.5); PROTEIN,URINE NEGATIVE (NEGATIVE); UROBILINOGEN,URINE 0.2 (NORMAL) E.U./dL (NORMAL)
[2023-11-26 13:29] LABS: CLARITY,URINE CLEAR (CLEAR)
[2023-11-26 13:47] LABS: BASOPHILS % (AUTO) 0.7 %; EOSINOPHILS # (AUTO) 0.1 10^3/uL (0.0-0.7); EOSINOPHILS % (AUTO) 2.4 %; HCT - HEMATOCRIT 38.7 % (37.0-47.0); HGB - HEMOGLOBIN 12.4 g/dL (12.0-16.0); LYMPHOCYTES # (AUTO) 1.1 10^3/uL (1.5-3.5); LYMPHOCYTES % (AUTO) 19.7 %; MEAN CORPUSCULAR HEMOGLOBIN 31.6 pg (27.0-31.0); MEAN CORPUSCULAR VOLUME 98.5 fL (81.0-99.0); MEAN PLATELET VOLUME 9.5 fL (7.9-10.8); MONOCYTES # (AUTO) 0.5 10^3/uL (0.0-1.0); MONOCYTES % (AUTO) 9.3 %; NEUTROPHILS # (AUTO) 3.7 10^3/uL (1.5-6.6); NEUTROPHILS % (AUTO) 67.4 %; PLT - PLATELET COUNT 206 10^3/uL (130-450); RED BLOOD COUNT 3.93 10^6/uL (4.20-5.40); RED CELL DISTRIBUTION WIDTH 14.5 % (12.0-15.0); WHITE BLOOD COUNT 5.5 x10^3/uL (4.8-10.8)
[2023-11-26 14:01] LABS: ALBUMIN/GLOBULIN RATIO 1.3 (1.0-2.2); BILIRUBIN,TOTAL 0.5 mg/dL (0.2-1.0); CALCIUM 9.5 mg/dL (8.5-10.3); CREATININE 0.7 mg/dL (0.6-1.3); POTASSIUM 3.9 mmol/L (3.5-4.5)
[2023-11-26] MEDS ORDERED: GADOTERATE MEGLUMINE 5 MMOL/10 ML VIAL ONE (15:41)
[2023-11-26] MEDS ORDERED: GADOTERATE MEGLUMINE 7.5 MMOL/15 ML VIAL ONE (15:41)
[2023-11-26] MEDS ORDERED: LIDOCAINE 1% 2 ML VIAL ONE ×2 (16:45→17:46)
[2023-11-26] MEDS: LORazepam 2 MG/ML VIAL IVP STA (18:27)
[2023-11-26] MEDS: LORazepam 2 MG/ML VIAL IM STA (18:34)
--- NOTE | 2023-11-26 18:58 | CONSULTATION NOTE ---
Consultation Report: Called to the ER to assist with IV access for MRI with contrast. Pt has had a history of difficult IV placement. when I arrived, attempts had been made x4. I attempted on bilateral upper extremities with ultrasound, placed a 2.25 inch 20 g catheter on left upper arm; unable to pull back blood, but it flushed well without pain. I was unable to feel confident in this placement to recommend contrast administration through it, so it was dc'd. I made one additional attempt on her right hand without success. At this point, she was ready to refuse any additional attempts, but we made a plan with the support technician, to start the study, then we'll attempt a 23 g butterfly to administer the contrast when needed, then immediately remove the butterfly. Pt. was given IM ativan for the study; and I will go to MRI to assist with contrast at the appropriate time.
--- NOTE | 2023-11-26 19:55 | MRI Report ---
PROCEDURE: Brain WO INDICATIONS: dizziness with new BLE weakness, paresthesias TECHNIQUE: Noncontrast axial T1 spin echo, axial T2 fast spin echo, sagittal and axial FLAIR, coronal T2 fast sp in echo, axial gradient echo, axial diffusion and ADC through the brain. COMPARISON: None. FINDINGS: Image quality: Diagnostic. CSF Spaces: Basal cisterns are patent. No extra-axial fluid collections. Ventricles are normal in size and shape. Brain: No intracranial masses or hemorrhage. Lim/white matter interface is normal. Brainstem appe ars normal. Diffusion-weighted images demonstrate no acute ischemic insult. Changes of chronic small vessel ischemic disease. Diffuse cortical volume loss. Normal intravascular flow voids are present. Skull and face: Calvarium has normal marrow signal. Orbits appear normal. Sinuses: Sinuses and mastoids are clear. IMPRESSION: MRI brain without acute intracranial abnormalities. No acute cerebral infarction. No mass or mass eff ect. Reviewed by: Samir Maldonado MD on 11/26/2023 7:53 PM PDT Approved by: Samir Maldonado MD on 11/26/2023 7:53 PM PDT Station ID: [id number]
--- NOTE | 2023-11-26 20:36 | MRI Report ---
PROCEDURE: Cervical Spine WO INDICATIONS: dizziness with new BLE weakness, paresthesias TECHNIQUE: Noncontrast sagittal T1 spin echo and T2 fast spin echo, sagittal STIR, foraminal oblique sagittal T2 fast spin echo, and axial gradient echo or T2 fast spin echo through the cervical spine. COMPARISON: None. FINDINGS: Image quality: Study degraded by moderate patient motion artifact. Alignment and Curvature: There is normal bony alignment. Bone Marrow: Marrow demonstrates normal overall signal. No acute compression fracture. Spinal Cord: Visualized spinal cord has normal size and signal. No cerebellar tonsillar herniation. Paraspinous Soft Tissues: No paravertebral masses. Prevertebral soft tissues are normal in thicknes s. Multilevel cervical spondylosis without significant disc space loss, high-grade spinal canal stenosis , or high-grade neuroforaminal stenosis within the limits of this examination. IMPRESSION: Limited evaluation the cervical spine secondary to moderate patient motion artifact. Within these jaffe itations, no acute abnormalities identified. No cord signal abnormalities. No high-grade spinal canal or neuroforaminal canal stenosis. Multilevel cervical spondylosis. Reviewed by: Samir Maldonado MD on 11/26/2023 8:35 PM PDT Approved by: Samir Maldonado MD on 11/26/2023 8:35 PM PDT Station ID: [id number]
[2023-11-26 20:47] VITALS: BP 179/91; O2SAT 93
--- NOTE | 2023-11-27 11:16 | ED Physician Documentation ---
History of Present Illness - Stated complaint Stated Complaint: LIGHTHEADED,BILAT LEGS NUMB - Chief complaint Chief Complaint: Neuro - Additonal information Additional information: 67-year-old female w/History of CHF, hypertension, hypercholesterolemia, colon cancer, type 2 diabetes, neuropathy presents emergency department for ongoing lightheadedness and new bilateral leg weakness. Patient says that she has had multiple tests done and she been having this worked up for months now she has had various different vascular ultrasounds done that were unremarkable she has had echoes done she has had normal labs done and they are having a hard time finding out what is going on with her new bilateral lower extremity paresthesias and worsening dizziness. Patient says what is new is that yesterday she is having worsening weakness to the point where she is having a hard time ambulating. She has had no MRI done just had a head CT done which was unremarkable. She said no fevers or chills no nausea vomiting diarrhea. She said yesterday she tried to tough it out but when it happened again today she got nervous and presented to the emergency department. PD PAST MEDICAL HISTORY - Past Medical History Past Medical History: Yes Cardiovascular: Congestive heart failure, Hypertension, High cholesterol, Other Respiratory: Pneumonia, Sleep apnea, CPAP use Endocrine/Autoimmune: Type 2 diabetes GI: Colon polyps, Chronic constipation, Other : None HEENT: Other Psych: None Musculoskeletal: Chronic back pain, Other Derm: None - Past Surgical History Past Surgical History: Yes General: Bowel surgery, Colonoscopy Ortho: Knee replacement /ASSOCI[employer]OR FINANCIAL AID: Tubal ligation, Hysterectomy - Present Medications Home Medications: Ambulatory Orders Medication Instructions Recorded Confirmed Acyclovir 400 mg PO BID 07/04/13 08/14/17 Atorvastatin Calcium 40 mg PO QPM 07/04/13 08/14/17 Carvedilol 25 mg PO DAILY 07/04/13 08/14/17 Estrogens, Conjugated [Premarin] 0.3 mg PO DAILY 07/04/13 08/14/17 Insulin Aspart [NovoLOG] 3 - 5 unit SUBQ TIDWM 07/04/13 08/14/17 Insulin Glargine,Hum.rec.anlog 15 unit SQ BID 07/04/13 08/14/17 [Lantus] Lisinopril 10 mg PO BID 07/04/13 08/14/17 Multivitamin [Multivitamins] 1 each PO DAILY 07/04/13 08/14/17 Omeprazole [PriLOSEC] 20 mg PO DAILY 07/04/13 08/14/17 hydroCHLOROthiazide [Hydrodiuril] 25 mg PO DAILY 07/04/13 08/14/17 Aspirin EC [Ecotrin] 325 mg PO DAILY 08/09/17 08/14/17 Dulaglutide [Trulicity] 1.5 mg SQ ONCE 08/09/17 08/14/17 Metformin HCl [Glucophage] 1,000 mg PO BID 08/09/17 08/14/17 predniSONE [Deltasone] 10 mg PO [id number] #42 tab 08/19/19 Lidocaine Patch 5% [Lidoderm Patch] 1 patch TOP DAILY PRN #10 patch 06/17/21 traMADol [Ultram] 50 - 100 mg PO Q6H PRN #30 tablet 06/17/21 - Allergies Allergies/Adverse Reactions: Allergies Allergy/AdvReac Type Severity Reaction Status Date / Time hydrocodone [Hydrocodone] AdvReac Mild Nausea Verified 11/26/23 12:46 oxycodone AdvReac Nausea Verified 11/26/23 12:46 - Social History Does the pt smoke?: No Smoking Status: Never smoker Does the pt drink ETOH?: Yes Does the pt have substance abuse?: No - Immunizations Immunizations are current?: Yes PD ED PE NORMAL - Vitals Vital signs reviewed: Yes - General General: Alert and oriented X 3, No acute distress, Well developed/nourished - HEENT HEENT: Atraumatic, PERRL, EOMI, Moist mucous membranes - Neck Neck: Supple, no meningeal sign, No bony TTP - Cardiac Cardiac: RRR, No murmur, No gallop, Strong equal pulses - Respiratory Respiratory: No respiratory distress, Clear bilaterally - Abdomen Abdomen: Normal bowel sounds - Back Back: No CVA TTP, No spinal TTP - Derm Derm: Normal color, Warm and dry, No rash - Extremities Extremities: No edema, Other (Bilateral lower extremity weakness, 4/5 strength) - Neuro Neuro: Alert and oriented X 3, Normal speech Eye Opening: Spontaneous Motor: Obeys Commands Verbal: Oriented GCS Score: 15 - Psych Psych: Normal mood, Normal affect Results - Vitals Vitals: Vital Signs - 24 hr 11/26/23 11/26/23 11/26/23 12:46 14:53 20:00 Temperature 36.5 C Heart Rate 78 78 83 Respiratory 16 20 13 Rate Blood Pressure 180/90 H 145/86 H 179/91 H O2 Saturation 96 98 93 Oxygen O2 Source Room air - Labs Labs: Laboratory Tests 11/26/23 11/26/23 11/26/23 13:08 13:40 13:40 WBC 5.5 RBC 3.93 L Hgb 12.4 Hct 38.7 MCV 98.5 MCH 31.6 H MCHC 32.0 RDW 14.5 Plt Count 206 MPV 9.5 Neut # (Auto) 3.7 Lymph # (Auto) 1.1 L [place] # (Auto) 0.5 Eos # (Auto) 0.1 Baso # (Auto) 0.0 Absolute Nucleated RBC 0.00 Nucleated RBC % 0.0 Sodium 137 Potassium 3.9 Chloride 98 L Carbon Dioxide 32 Anion Gap 7.0 BUN 19 Creatinine 0.7 Estimated GFR (MDRD) 83 L Glucose 116 H Calcium 9.5 Total Bilirubin 0.5 AST 17 ALT 13 Alkaline Phosphatase 61 Total Protein 7.0 Albumin 4.0 Globulin 3.0 Albumin/Globulin Ratio 1.3 Lipase 17 Urine Color LT. YELLOW Urine Clarity CLEAR Urine pH 6.5 Ur Specific [place] 1.010 Urine Protein NEGATIVE Urine Glucose (UA) NEGATIVE Urine Ketones NEGATIVE Urine Occult Blood NEGATIVE Urine Nitrite NEGATIVE Urine Bilirubin NEGATIVE Urine Urobilinogen 0.2 (NORMAL) Ur Leukocyte Esterase NEGATIVE Ur Microscopic Review NOT INDICATED Urine Culture Comments NOT INDICATED - Rads (name of study) Brain MRI without Relevant Findings:: Final report received, EMP independent interpretation of test, Other (No intracranial masses or hemorrhages or other acute abnormalities or findings) MRI cervical without Relevant Findings:: Final report received, EMP independent interpretation of test, Other (Multilevel cervical spondylosis no other acute abnormalities or findings) PD Medical Decision Making - ED course ED course: 67-year-old female presents emergency department for new/worsening weakness as well as dizziness. Differentials include but are not limited to MS, intracranial mass, electrolyte abnormalities, stroke.MRI with contrast was originally ordered for possible lesions related to undiagnosed MS but unfortunately after multiple attempts to start an IV even including anesthesia and ultrasound we were unable to successfully get a line for MRI with contrast. We eventually had to transition to MRI without contrast of the brain and neck. No acute findings were visualized although study was limited due to some motion artifact. She did have multilevel cervical spondylosis although I do not believe that this is what is contributing to patient's dizziness and worsening bilateral lower extremity weakness Labs are collected she is not low leukocytosis no significant anemia no electrolyte abnormalities her GFR is 83, creatinine 0.7, BUN 19. Her urinalysis is also unremarkable. At this point I am unclear what is causing her dizziness and bilateral lower extremity weakness but patient was told to follow-up with primary care provider outpatient and when she comes back for MRI to hold off on taking her diuretic and to be well-hydrated for that visit and to let anesthesia know that she is a very hard stick for a line. ER return precautions given all questions answered patient has a multitude of specialist aligned outpatient 2 she is following up with for this chief complaint. Departure - Departure Disposition: 01 Home, Self Care Clinical Impression: Bilateral leg weakness Condition: Good Instructions: ED Weakness UKO, ED Fall Dizziness Weakn Balance Comments: Thank you for trusting us with your care, we have evaluated you for bilateral lower extremity weakness. We have completed an MRI of your head as well as your neck we are not seeing any acute abnormalities or findings at this time although I cannot rule out multiple sclerosis as an MRI with contrast would have been helpful but we are unable to do so due to limited IV access. I suggest following up with your primary care provider letting her know about today's ER visit and letting her know that we are recommending an MRI with contrast to rule out this being related to MS. The other thing I would recommend doing is following up with neurology outpatient for further examination and evaluation of this weakness that you are experiencing. Please come back to the emergency department for starting to have any incontinence of urine or stool, fevers or chills or any other emergent concerning symptoms. Forms: PCP List Discharge Date/Time: 11/26/23 20:41
== END 2023-11-26 20:41 | disposition home or self-care (01) ==
LOC: ED 12:40
DX: R53.1 Weakness (principal); I11.0 Hypertensive heart disease with heart failure; I50.9 Heart failure, unspecified; E78.00 Pure hypercholesterolemia, unspecified; E11.42 Type 2 diabetes mellitus with diabetic polyneuropathy; Z85.038 Personal history of other malignant neoplasm of large intestine; G47.30 Sleep apnea, unspecified; Z79.4 Long term (current) use of insulin; Z79.84 Long term (current) use of oral hypoglycemic drugs; Z79.899 Other long term (current) drug therapy
CPT/HCPCS: 36415; 70551; 72141; 80053; 81003; 83690; 85025; 96372; 99283; 99284; A9575; J2060; 81001; 87086

== ENCOUNTER 2024-04-09 05:14 | Outpatient (CLI) | payer MEDICARE, OTHER | END 2024-04-09 05:15 | disposition critical access hospital (66) | LOC: EMS 05:14 | DX: R06.00 Dyspnea, unspecified (principal); R06.2 Wheezing; R60.0 Localized edema | CPT/HCPCS: A0425; A0427 ==

== ENCOUNTER 2024-04-09 05:21 | Inpatient (IN) | payer MEDICARE, OTHER ==
--- NOTE | 2024-04-09 05:31 | ED Physician Documentation ---
PD HPI DYSPNEA - Stated complaint Stated Complaint: ASTHMA - History obtained from History obtained from: Patient, EMS - Additional information Additional information: The patient is brought to the emergency department via EMS for chief complaint of dyspnea. She states that started this evening after getting on her CPAP and states that the CPAP is sometimes a trigger for an asthma exacerbation. She denies any recent illness. She has a history of both asthma and CHF but is not a smoker. She denies any history of coronary artery disease. No chest pain. No fevers. Patient states that she tried taking her Flovent inhaler at home but it did not seem to help. Medics report that they have given her 3 albuterol treatments and a DuoNeb and route, plus IM Solu-Medrol because they could not get an IV. They placed the patient on CPAP and route and she seems to be doing a lot better than she was. Patient reports feeling a little better but not completely. She does take Lasix 20 mg daily at home. No other complaints at this time. PD PAST MEDICAL HISTORY - Past Medical History Cardiovascular: Congestive heart failure, Hypertension, High cholesterol, Other Respiratory: Pneumonia, Sleep apnea, CPAP use Endocrine/Autoimmune: Type 2 diabetes GI: Colon polyps, Chronic constipation, Other : None HEENT: Other Psych: None Musculoskeletal: Chronic back pain, Other Derm: None - Past Surgical History Past Surgical History: Yes General: Bowel surgery, Colonoscopy Ortho: Knee replacement /[employer]: Tubal ligation, Hysterectomy - Present Medications Home Medications: Ambulatory Orders Medication Instructions Recorded Confirmed Acyclovir 400 mg PO BID 07/04/13 04/09/24 Atorvastatin Calcium 40 mg PO QPM 07/04/13 04/09/24 Carvedilol 25 mg PO DAILY 07/04/13 04/09/24 Estrogens, Conjugated [Premarin] 0.3 mg PO DAILY 07/04/13 04/09/24 Insulin Aspart [NovoLOG] 3 - 5 unit SUBQ TIDWM 07/04/13 04/09/24 Insulin Glargine,Hum.rec.anlog 15 unit SQ BID 07/04/13 04/09/24 [Lantus] Lisinopril 10 mg PO BID 07/04/13 04/09/24 Multivitamin [Multivitamins] 1 each PO DAILY 07/04/13 04/09/24 Omeprazole [PriLOSEC] 20 mg PO DAILY 07/04/13 04/09/24 Aspirin EC [Ecotrin] 325 mg PO DAILY 08/09/17 04/09/24 Metformin HCl [Glucophage] 1,000 mg PO BID 08/09/17 04/09/24 - Allergies Allergies/Adverse Reactions: Allergies Allergy/AdvReac Type Severity Reaction Status Date / Time hydrocodone [Hydrocodone] AdvReac Mild Nausea Verified 11/26/23 12:46 oxycodone AdvReac Nausea Verified 11/26/23 12:46 - Social History Does the pt smoke?: No Smoking Status: Never smoker Does the pt drink ETOH?: Yes Does the pt have substance abuse?: No - Immunizations Immunizations are current?: Yes PD ED PE NORMAL - Vitals Vital signs reviewed: Yes - General General: Alert and oriented X 3, Well developed/nourished, Other (Moderate respiratory distress, on CPAP machine. Alert and able to answer questions.) - HEENT HEENT: Atraumatic, PERRL - Neck Neck: Supple, no meningeal sign - Cardiac Cardiac: RRR, No murmur - Respiratory Respiratory: Other (Moderately diminished air movement bilaterally, mild wheezing, mild rales. Moderate respiratory distress with prolonged expiratory phase. The patient is talking.) - Abdomen Abdomen: Soft, Non tender, Non distended - Derm Derm: Normal color, Warm and dry, No rash - Extremities Extremities: No deformity, No calf tenderness / cord, Other (1+ pitting edema bilateral lower extremities symmetrically.) - Neuro Neuro: Other (Alert, grossly appropriate and intact.) - Psych Psych: Normal mood, Normal affect Results - Vitals Vitals: Vital Signs - 24 hr 04/09/24 04/09/24 04/09/24 05:25 05:35 05:55 Temperature 36.2 C L Heart Rate 101 H 100 98 Respiratory 30 H 26 H Rate Blood Pressure 185/102 H 158/135 H O2 Saturation 97 99 04/09/24 04/09/24 04/09/24 06:00 06:37 06:49 Temperature Heart Rate 98 96 96 Respiratory 22 28 H 26 H Rate Blood Pressure 166/134 H 131/113 H 135/120 H O2 Saturation 99 97 99 Oxygen O2 Source CPAP - Labs Labs: Laboratory Tests 04/09/24 04/09/24 04/09/24 05:34 05:34 05:34 WBC 11.8 H RBC 3.88 L Hgb 11.7 L Hct 37.2 MCV 95.9 MCH 30.2 MCHC 31.5 L RDW 14.5 Plt Count 189 MPV 10.7 Neut # (Auto) 8.9 H Lymph # (Auto) 1.7 [place] # (Auto) 0.9 Eos # (Auto) 0.2 Baso # (Auto) 0.1 Absolute Nucleated RBC 0.00 Nucleated RBC % 0.0 Manual Slide Review Indicated Platelet Estimate NORMAL (130-450,000) RBC Morph Micro Appear 1+ HYPOCHROMASIA Bld Gas Analysis Time Sample Site ABG pH ABG pCO2 ABG pO2 ABG HCO3 ABG Total CO2 ABG O2 Saturation ABG Base Excess Rogerio Test Respiration Rate O2 Delivery Device Vent Mode FiO2 Pressure Support Vent EPAP IPAP Sodium 135 Potassium 4.6 H Chloride 100 L Carbon Dioxide 30 Anion Gap 5.0 L BUN 13 Creatinine 0.5 L Estimated GFR (MDRD) 123 Glucose 228 H Calcium 9.1 Total Bilirubin 0.5 AST 26 ALT 12 Alkaline Phosphatase 63 B-Natriuretic Peptide 366 H Total Protein 6.7 Albumin 3.9 Globulin 2.8 Albumin/Globulin Ratio 1.4 Lipase 15 Nasal Adenovirus (PCR) Nasal B. parapertussis DNA (PCR) Nasal Coronavir 229E PCR Nasal Coronavir HKU1 PCR Nasal Coronavir NL63 PCR Nasal Coronavir OC43 PCR Nasal Enterovir/Rhinovir PCR Nasal Influenza B PCR Nasal Influenza A PCR Nasal Parainfluen 1 PCR Nasal Parainfluen 2 PCR Nasal Parainfluen 3 PCR Nasal Parainfluen 4 PCR Nasal RSV (PCR) Nasal B.pertussis DNA PCR Nasal C.pneumoniae (PCR) Uday Human Metapneumo PCR Nasal M.pneumoniae (PCR) Nasal SARS-CoV-2 (PCR) 04/09/24 04/09/24 05:54 06:03 WBC RBC Hgb Hct MCV MCH MCHC RDW Plt Count MPV Neut # (Auto) Lymph # (Auto) [place] # (Auto) Eos # (Auto) Baso # (Auto) Absolute Nucleated RBC Nucleated RBC % Manual Slide Review Platelet Estimate RBC Morph Micro Appear Bld Gas Analysis Time 0600 Sample Site RIGHT RADIAL ABG pH 7.34 L ABG pCO2 55 H ABG pO2 97 ABG HCO3 28.8 H ABG Total CO2 30.5 H ABG O2 Saturation 97 ABG Base Excess 2.0 Rogerio Test POSITIVE Respiration Rate 12 O2 Delivery Device BiPAP Vent Mode SYNCHRONOUS/TIMES FiO2 60.00 Pressure Support Vent 8 EPAP 6 IPAP 14 Sodium Potassium Chloride Carbon Dioxide Anion Gap BUN Creatinine Estimated GFR (MDRD) Glucose Calcium Total Bilirubin AST ALT Alkaline Phosphatase B-Natriuretic Peptide Total Protein Albumin Globulin Albumin/Globulin Ratio Lipase Nasal Adenovirus (PCR) NOT DETECTED Nasal B. parapertussis DNA (PCR) NOT DETECTED Nasal Coronavir 229E PCR NOT DETECTED Nasal Coronavir HKU1 PCR NOT DETECTED Nasal Coronavir NL63 PCR NOT DETECTED Nasal Coronavir OC43 PCR NOT DETECTED Nasal Enterovir/Rhinovir PCR NOT DETECTED Nasal Influenza B PCR NOT DETECTED Nasal Influenza A PCR NOT DETECTED Nasal Parainfluen 1 PCR NOT DETECTED Nasal Parainfluen 2 PCR NOT DETECTED Nasal Parainfluen 3 PCR NOT DETECTED Nasal Parainfluen 4 PCR NOT DETECTED Nasal RSV (PCR) NOT DETECTED Nasal B.pertussis DNA PCR NOT DETECTED Nasal C.pneumoniae (PCR) NOT DETECTED Uday Human Metapneumo PCR NOT DETECTED Nasal M.pneumoniae (PCR) NOT DETECTED Nasal SARS-CoV-2 (PCR) NOT DETECTED PD Medical Decision Making - ED course Complexity details: reviewed results, re-evaluated patient, considered differential, d/w patient ED course: The patient was evaluated by myself immediately upon arrival in the emergency department. Respiratory therapy was present as well and patient was transitioned off of CPAP and onto our BiPAP machine. X-ray was obtained as well as blood work. Patient had already received multiple nebulizer treatments en route as well as Solu-Medrol, And her x-ray showed some vascular congestion and diffuse interstitial pulmonary edema. She was given Lasix 80 mg IV and did begin to put out urine. SheI reevaluated the patient several times and she looked progressively more comfortable. She remained on BiPAP, but was able to be weaned from 60% FiO2 down to 40 after ABG demonstrated pO2 of 97 on the initial settings. At this point in time, she has put out about 400 cc of urine, and is speaking comfortably in full sentences on BiPAP. Her oxygen saturation is 98 to 100%. We do not have any ICU beds but I suspect the patient will be ready to wean off BiPAP soon. From there, we will see how she is doing and determine whether she can be admitted to the floor. I reviewed the patient's labs so far, and found the patient has a normal white blood cell count, BNP 366 and a negative respiratory PCR panel. Patient will be signed out to Dr. Delgado at change of shift pending reevaluation and final disposition. - Critical Care Time(min): 40 Comments: Critical care time was necessary due to high probability of imminent and life- threatening decline, due to hypoxia and hypoxemic respiratory failure, secondary to CHF exacerbation. Time Includes: Direct patient care, Review records, Reassess patient, Document care, Coordinate care, See progress note Data interpretation: Labs, Pulse ox, ABG, CXR, Cardiac output, See progress note Procedures included in critical care time: Ventilator mgmt
[2024-04-09 05:43] LABS: BASOPHILS # (AUTO) 0.1 10^3/uL (0.0-0.1); BASOPHILS % (AUTO) 0.4 %; EOSINOPHILS # (AUTO) 0.2 10^3/uL (0.0-0.7); EOSINOPHILS % (AUTO) 1.5 %; HCT - HEMATOCRIT 37.2 % (37.0-47.0); HGB - HEMOGLOBIN 11.7 g/dL (12.0-16.0); LYMPHOCYTES # (AUTO) 1.7 10^3/uL (1.5-3.5); LYMPHOCYTES % (AUTO) 14.3 %; MEAN CORPUSCULAR HEMOGLOBIN 30.2 pg (27.0-31.0); MEAN CORPUSCULAR HGB CONC 31.5 g/dL (32.0-36.0); MEAN CORPUSCULAR VOLUME 95.9 fL (81.0-99.0); MEAN PLATELET VOLUME 10.7 fL (7.9-10.8); MONOCYTES # (AUTO) 0.9 10^3/uL (0.0-1.0); MONOCYTES % (AUTO) 7.9 %; NEUTROPHILS # (AUTO) 8.9 10^3/uL (1.5-6.6); NEUTROPHILS % (AUTO) 75.5 %; PLT - PLATELET COUNT 189 10^3/uL (130-450); RED BLOOD COUNT 3.88 10^6/uL (4.20-5.40); RED CELL DISTRIBUTION WIDTH 14.5 % (12.0-15.0); WHITE BLOOD COUNT 11.8 x10^3/uL (4.8-10.8)
[2024-04-09 05:45] LABS: SLIDE REVIEW? Indicated
[2024-04-09 05:58] LABS: PLATELET ESTIMATE, MANUAL NORMAL (130-450,000) (NORMAL); RBC MORPHOLOGY (MULTIPLE) 1+ HYPOCHROMASIA (NORMAL)
[2024-04-09 06:00] LABS: ABG PH 7.34 (7.35-7.45)
[2024-04-09 06:01] LABS: ABG HCO3 28.8 mmol/L (22.0-26.0); ABG OXYGEN SATURATION 97 % (94-98); ABG PCO2 55 mmHg (34-45); ABG PO2 97 mmHg (80-100); ABG TCO2 30.5 MMOL/L (21.0-29.0); ALLEN TEST POSITIVE
[2024-04-09 06:02] LABS: ABG MODE OF VENTILATION SYNCHRONOUS/TIMES; ABG RESPIRATORY RATE 12 b/min
[2024-04-09 06:02] LABS: ALBUMIN 3.9 g/dL (3.2-5.5); ALBUMIN/GLOBULIN RATIO 1.4 (1.0-2.2); BILIRUBIN,TOTAL 0.5 mg/dL (0.2-1.0); CALCIUM 9.1 mg/dL (8.5-10.3); CREATININE 0.5 mg/dL (0.6-1.3); POTASSIUM 4.6 mmol/L (3.5-4.5); TOTAL PROTEIN 6.7 g/dL (6.4-8.9)
[2024-04-09] MEDS: FUROSEMIDE 40 MG/4 ML VIAL IVP STA (06:15)
[2024-04-09 06:57] LABS: CORONAVIRUS 229E-RESP PCR NOT DETECTED; CORONAVIRUS HKU1-RESP PCR NOT DETECTED; CORONAVIRUS NL63-RESP PCR NOT DETECTED; CORONAVIRUS OC43-RESP PCR NOT DETECTED; HUMAN METAPNEUMOVIRUS NOT DETECTED; INFLUENZA A- RESP PCR PANEL NOT DETECTED; RHINOVIRUS/ENTEROVIRUS NOT DETECTED; SARS-CoV-2 -RESP PCR PANEL NOT DETECTED
[2024-04-09 06:58] LABS: B. PARAPERTUSSIS- RESP PCR PAN NOT DETECTED; B. PERTUSSIS- RESP PCR PANEL NOT DETECTED; C. PNEUMONIAE- RESP PCR PANEL NOT DETECTED; INFLUENZA B - RESP PCR PANEL NOT DETECTED; M. PNEUMONIAE- RESP PCR PANEL NOT DETECTED; PARAINFLUENZA VIRUS 1 NOT DETECTED; PARAINFLUENZA VIRUS 2 NOT DETECTED; PARAINFLUENZA VIRUS 3 NOT DETECTED; PARAINFLUENZA VIRUS 4 NOT DETECTED; RSV- RESP PCR PANEL NOT DETECTED
--- NOTE | 2024-04-09 07:46 | ED Physician Documentation ---
ED Addendum - Addendum Addendum: 04/09/24 08:21 Since troponin came back at 700. I spoke with the patient, she states she has never had a heart attack or stents, sees Dr. Aviles, cardiology at [facility] in [place]. She did have shortness of breath today, but it felt like her asthma/CHF. 04/09/24 09:35 Discussed the case with Dr. Isaac, cardiology at [facility] in [place], on-call for Dr. Aviles. He reviewed the patient's charts. In 2020 she had a reportedly normal coronary angiogram. There was no CAD at that time. In November 2023 had an echo which showed mild diastolic dysfunction. He agrees that the troponin elevation is likely secondary to demand ischemia from her respiratory distress and hypoxia rather than true ACS. Recommends trending troponins, treating her CHF and COPD, does not feel that she needs to be transferred for cardiac catheterization or urgent cardiac intervention at this time. Patient was able to be weaned off of CPAP in the emergency department and down to a nasal cannula. Discussed the case with the hospitalist who will admit the patient for further care. Patient still becomes hypoxic when taken off of oxygen and desaturates very quickly with any movement. Results - Vitals Vitals: Vital Signs - 24 hr 04/09/24 04/09/24 04/09/24 05:25 05:35 05:55 Temperature 36.2 C L Heart Rate 101 H 100 98 Respiratory 30 H 26 H Rate Blood Pressure 185/102 H 158/135 H O2 Saturation 97 99 If not protocol : Oxygen Flow, liters/minute 04/09/24 04/09/24 04/09/24 06:00 06:37 06:49 Temperature Heart Rate 98 96 96 Respiratory 22 28 H 26 H Rate Blood Pressure 166/134 H 131/113 H 135/120 H O2 Saturation 99 97 99 If not protocol : Oxygen Flow, liters/minute 04/09/24 04/09/24 04/09/24 07:00 07:30 07:36 Temperature Heart Rate 95 95 Respiratory 21 25 H Rate Blood Pressure 144/104 H 162/84 H O2 Saturation 98 96 If not protocol 4 : Oxygen Flow, liters/minute Oxygen O2 Source BIPAP - EKG (time done) 0725 EKG releavant findings:: EKG personally interpreted by author of this note. Relevant findings are: Rate: Rate (enter#) (95) Rhythm: NSR, Other (PVC) Intervals: Normal [place] Ischemia: Q waves (v1-2), Non specific changes - Labs Labs: Laboratory Tests 04/09/24 04/09/24 04/09/24 05:27 05:34 05:34 WBC 11.8 H RBC 3.88 L Hgb 11.7 L Hct 37.2 MCV 95.9 MCH 30.2 MCHC 31.5 L RDW 14.5 Plt Count 189 MPV 10.7 Neut # (Auto) 8.9 H Lymph # (Auto) 1.7 [place] # (Auto) 0.9 Eos # (Auto) 0.2 Baso # (Auto) 0.1 Absolute Nucleated RBC 0.00 Nucleated RBC % 0.0 Manual Slide Review Indicated Platelet Estimate NORMAL (130-450,000) RBC Morph Micro Appear 1+ HYPOCHROMASIA Bld Gas Analysis Time Sample Site ABG pH ABG pCO2 ABG pO2 ABG HCO3 ABG Total CO2 ABG O2 Saturation ABG Base Excess Rogerio Test Respiration Rate O2 Delivery Device Vent Mode FiO2 Pressure Support Vent EPAP IPAP Sodium 135 Potassium 4.6 H Chloride 100 L Carbon Dioxide 30 Anion Gap 5.0 L BUN 13 Creatinine 0.5 L Estimated GFR (MDRD) 123 Glucose 228 H Calcium 9.1 Total Bilirubin 0.5 AST 26 ALT 12 Alkaline Phosphatase 63 Troponin I High Sens 740.0 H* B-Natriuretic Peptide Total Protein 6.7 Albumin 3.9 Globulin 2.8 Albumin/Globulin Ratio 1.4 Lipase 15 Nasal Adenovirus (PCR) Nasal B. parapertussis DNA (PCR) Nasal Coronavir 229E PCR Nasal Coronavir HKU1 PCR Nasal Coronavir NL63 PCR Nasal Coronavir OC43 PCR Nasal Enterovir/Rhinovir PCR Nasal Influenza B PCR Nasal Influenza A PCR Nasal Parainfluen 1 PCR Nasal Parainfluen 2 PCR Nasal Parainfluen 3 PCR Nasal Parainfluen 4 PCR Nasal RSV (PCR) Nasal B.pertussis DNA PCR Nasal C.pneumoniae (PCR) Uday Human Metapneumo PCR Nasal M.pneumoniae (PCR) Nasal SARS-CoV-2 (PCR) 04/09/24 04/09/24 04/09/24 05:34 05:54 06:03 WBC RBC Hgb Hct MCV MCH MCHC RDW Plt Count MPV Neut # (Auto) Lymph # (Auto) [place] # (Auto) Eos # (Auto) Baso # (Auto) Absolute Nucleated RBC Nucleated RBC % Manual Slide Review Platelet Estimate RBC Morph Micro Appear Bld Gas Analysis Time 0600 Sample Site RIGHT RADIAL ABG pH 7.34 L ABG pCO2 55 H ABG pO2 97 ABG HCO3 28.8 H ABG Total CO2 30.5 H ABG O2 Saturation 97 ABG Base Excess 2.0 Rogerio Test POSITIVE Respiration Rate 12 O2 Delivery Device BiPAP Vent Mode SYNCHRONOUS/TIMES FiO2 60.00 Pressure Support Vent 8 EPAP 6 IPAP 14 Sodium Potassium Chloride Carbon Dioxide Anion Gap BUN Creatinine Estimated GFR (MDRD) Glucose Calcium Total Bilirubin AST ALT Alkaline Phosphatase Troponin I High Sens B-Natriuretic Peptide 366 H Total Protein Albumin Globulin Albumin/Globulin Ratio Lipase Nasal Adenovirus (PCR) NOT DETECTED Nasal B. parapertussis DNA (PCR) NOT DETECTED Nasal Coronavir 229E PCR NOT DETECTED Nasal Coronavir HKU1 PCR NOT DETECTED Nasal Coronavir NL63 PCR NOT DETECTED Nasal Coronavir OC43 PCR NOT DETECTED Nasal Enterovir/Rhinovir PCR NOT DETECTED Nasal Influenza B PCR NOT DETECTED Nasal Influenza A PCR NOT DETECTED Nasal Parainfluen 1 PCR NOT DETECTED Nasal Parainfluen 2 PCR NOT DETECTED Nasal Parainfluen 3 PCR NOT DETECTED Nasal Parainfluen 4 PCR NOT DETECTED Nasal RSV (PCR) NOT DETECTED Nasal B.pertussis DNA PCR NOT DETECTED Nasal C.pneumoniae (PCR) NOT DETECTED Uday Human Metapneumo PCR NOT DETECTED Nasal M.pneumoniae (PCR) NOT DETECTED Nasal SARS-CoV-2 (PCR) NOT DETECTED Departure - Departure Disposition: 66 [facility] DC/Xfer Clinical Impression: COPD exacerbation, Elevated troponin Congestive heart failure Qualifiers: Heart failure type: unspecified Heart failure chronicity: acute on chronic Qualified Code(s): I50.9 - Heart failure, unspecified Pulmonary edema Qualifiers: Chronicity: acute Qualified Code(s): J81.0 - Acute pulmonary edema Condition: Stable Discharge Date/Time: 04/09/24 12:06
--- NOTE | 2024-04-09 08:04 | XRAY Report ---
PROCEDURE: Chest 1V INDICATIONS: dyspnea TECHNIQUE: One view of the chest was acquired. COMPARISON: 08/19/2019 FINDINGS: Surgical changes and devices: None Lungs and pleura: Mild to moderate diffuse interstitial prominence. No drainable pleural effusions. Mediastinum: Borderline cardiomegaly Bones and chest wall: Degenerative changes IMPRESSION: Diffuse interstitial prominence could represent edema versus atypical infection. Borderline cardiomeg tank. Consider future imaging surveillance to assess for resolution. Agree with preliminary report Reviewed by: Keven Vargas MD on 04/09/2024 8:03 AM PDT Approved by: Keven Vargas MD on 04/09/2024 8:03 AM PDT Station ID: [id number]
[2024-04-09] MEDS ORDERED: ACETAMINOPHEN 325 MG TABLET PO PRN (11:17)
[2024-04-09] MEDS ORDERED: SODIUM CHLORIDE FLUSH 0.9% 10 ML SYRINGE IVP PRN (11:17)
--- NOTE | 2024-04-09 11:42 | HISTORY & PHYSICAL EXAMINATION ---
Chief Complaint - Chief Complaint Chief Complaint: shortness of breath History of Present Illness - Admitted From Admitted From:: ED - History Obtained From Records Reviewed: Outpt notes in [place] History obtained from: Patient - History of Present Illness HPI Comment/Other: 68-year-old female who presents to the emergency department overnight with shortness of breath. She has been off her Lasix for about 6 weeks due to dehydration she states. She wears a CPAP at night which sometimes does trigger her asthma. In any event she woke up at midnight unable to breathe and called 911. Workup in the emergency department was consistent with acute CHF. She had pulmonary edema on chest x-ray required supplemental oxygen. She has a history of CHF last echocardiogram done in 2023 with ejection fraction around 50% per the ED physician who spoke with a mastercam programmer at [facility]. She reportedly had a cardiac cath in 2020 which showed no coronary artery disease. Troponin was elevated at 700 at the time of admission. Patient admits to increasing pedal edema over the last 6 weeks she states she wears compression hose and these help. She has been unable to lie flat in bed for some time due to paroxysmal nocturnal dyspnea. She also relates chronic cough/throat clearing. She states that she has asthma not COPD. She sees a dough raiser, Dr. Lagos at [facility] also sees Dr. Aviles at [facility] for cardiology. Her primary care doctor is with [facility]. She has insulin- dependent diabetes for which she uses a Dexcom monitor she relates to me that her last A1c was "good" History - Past Medical History Cardiovascular: reports: Congestive heart failure, Hypertension, High cholesterol, Other Respiratory: reports: Pneumonia, Sleep apnea, CPAP use Endocrine/Autoimmune: reports: Type 2 diabetes GI: reports: Colon polyps, Chronic constipation, Other : reports: None HEENT: reports: Other Psych: reports: None Musculoskeletal: reports: Chronic back pain, Other Derm: reports: None MRSA Hx?: Yes - Past Surgical History General: reports: Bowel surgery (Stage IIb colon cancer resected in 2009 she had an ostomy for a period of time.), Colonoscopy ([facility] also with [facility]. She gets regular colonoscopies) Ortho: reports: Knee replacement (Bilateral) /CUSTOMER CARE COORDINATOR: reports: Tubal ligation, Hysterectomy Cardiovascular: reports: Cardiac catheterization (Negative in 2020). denies: CABG, Coronary stent, Pacemaker - Family & Social History Family History: Mother: Alive and Well (Dementia, Age 92), Father: (Diabetes, coronary artery disease, prostate cancer at age 80) Living arrangement: At home Living Situation: With spouse/s.o. - Substance History Use: Uses substance without health or social issues: Tobacco (Non-smoker for 35 years) - POLST Patient has POLST: No POLST Status: Full Code Meds/Allgy - Home Medications Home Medications: Ambulatory Orders Medication Instructions Recorded Confirmed Acyclovir 400 mg PO BID 07/04/13 04/09/24 Carvedilol 25 mg PO BID 07/04/13 04/09/24 Estrogens, Conjugated [Premarin] 0.3 mg PO DAILY 07/04/13 04/09/24 Insulin Aspart [NovoLOG] 3 - 5 unit SUBQ TIDWM 07/04/13 04/09/24 Insulin Glargine,Hum.rec.anlog 30 units SQ DAILY 07/04/13 04/09/24 [Lantus] Omeprazole [PriLOSEC] 20 mg PO BID 07/04/13 04/09/24 Aspirin EC [Ecotrin] 325 mg PO DAILY 08/09/17 04/09/24 Metformin HCl [Glucophage] 1,000 mg PO BID 08/09/17 04/09/24 Albuterol Sulf [Ventolin Hfa 1 puffs INH Q6H PRN 04/09/24 04/09/24 Inhaler] Amlodipine Besylate [Norvasc] 10 mg PO DAILY 04/09/24 04/09/24 Atorvastatin [Lipitor] 20 mg PO HS 04/09/24 04/09/24 Fluticasone Propionate 1 puffs PO BID 04/09/24 04/09/24 Ketoconazole 2% Cream [Nizoral 2% 1 each TOP BID PRN 04/09/24 04/09/24 Cream] Losartan Potassium 100 mg PO DAILY 04/09/24 04/09/24 Montelukast [Singulair] 10 mg PO QPM 04/09/24 04/09/24 Semaglutide [Ozempic] 2 mg SUBQ OAW 04/09/24 04/09/24 Triamcinolone 0.1% Cream [Kenalog 1 each TOP BID PRN 04/09/24 04/09/24 0.1% Cream] - Allergies Allergies/Adverse Reactions: Allergies Allergy/AdvReac Type Severity Reaction Status Date / Time hydrocodone [Hydrocodone] AdvReac Mild Nausea Verified 11/26/23 12:46 oxycodone AdvReac Nausea Verified 11/26/23 12:46 Review of Systems - Constitutional Constitutional: reports: Fatigue, Weight gain - Eyes Eyes: denies: Blurred vision - Ears, Nose & Throat Ears, Nose & Throat: denies: Ear pain, Nasal discharge - Cardiovascular Cariovascular: reports: Edema, Orthopnea. denies: Chest pain, Syncope - Respiratory Respiratory: reports: Cough (chronic dry/throat clearing) - Gastrointestinal Gastrointestinal: denies: Abdominal pain, Diarrhea, Change in bowel habits, Vomiting - Genitourinary Genitourinary: denies: Dysuria - Musculoskeletal Musculoskeletal: denies: Muscle pain - Integumentary Integumentary: denies: Rash - Neurological Neurological: denies: General weakness, Focal weakness - Hematologic/Lymphatic Hematologic/Lymphatic: reports: Bruising (bruises easily) - All Other Systems All Other Systems: reports: Reviewed and negative Prior Level of Functionality: independent. Exam - Vital Signs Vital Signs: Vital Signs x48h Temp Pulse Resp BP Pulse Ox O2 Flow Rate 04/09/24 11:30 97 16 163/87 H 93 4 04/09/24 11:00 100 23 178/95 H 97 4 04/09/24 10:30 95 19 166/88 H 94 4 04/09/24 10:00 97 25 H 160/85 H 94 4 04/09/24 09:50 1 04/09/24 09:30 94 20 177/87 H 96 04/09/24 09:00 96 20 183/118 H 95 04/09/24 08:30 93 20 175/87 H 94 04/09/24 08:00 90 18 171/134 H 93 04/09/24 07:50 95 04/09/24 07:36 4 04/09/24 07:30 95 25 H 162/84 H 96 04/09/24 07:00 95 21 144/104 H 98 04/09/24 06:49 96 26 H 135/120 H 99 04/09/24 06:37 96 28 H 131/113 H 97 04/09/24 06:00 98 22 166/134 H 99 08/07/24 05:55 98 26 H 158/135 H 99 04/09/24 05:35 100 04/09/24 05:25 36.2 C L 101 H 30 H 185/102 H 97 - Physical Exam General Appearance: positive: No acute distress, Alert Eyes Bilateral: positive: Normal inspection ENT: positive: ENT inspection nml Neck: positive: Nml inspection Respiratory: positive: Chest non-tender, No respiratory distress, Other (decreased at bases) Cardiovascular: positive: Regular rate & rhythm. negative: Tachycardia Abdomen: positive: Non-tender Back: positive: Nml inspection Skin: positive: Color nml, Other (bruising on abdominal wall (she states from dexcom and insulin injections).) Extremities: positive: Pedal edema (2+ to mid calf. chronic soft tissue defect (healed) left anterior leg due to remote trauma) Neurologic/Psychiatric: positive: Oriented x3 Conclusion/Plan - Problem List (1) Congestive heart failure Conclusion/Plan: She received Lasix 80 mg in the emergency department. She has diuresed over 400 mL. I will repeat Lasix dosing at 40 mg this afternoon. This is ordered. She has oxygen saturations which reportedly were her in the 60s upon EMS arrival. She was placed on nasal cannula and then eventually transition to BiPAP she was on BiPAP for several hours as she began to diurese. She is not on home oxygen at the time of admission. she is on 4 L via nasal cannula and has weaned down to 2 L this afternoon.BN P at 530 this morning was 366. We will continue to diurese her and anticipate transitioning her to home with resumption of her previous Lasix dosing. Continue home Coreg continue home amlodipine continue home losartan Qualifiers: Heart failure type: unspecified Heart failure chronicity: acute on chronic Qualified Code(s): I50.9 - Heart failure, unspecified (2) Asthma attack Conclusion/Plan: She is not wheezing and appears comfortable on exam at this time. She did however get Solu-Medrol IM, unknown dose from EMS at the time that they initially saw her. She has a history of asthma she is not on home oxygen she is under the care of a dough raiser and takes inhaled fluticasone and albuterol at home. No indication that she has a pneumonia.She does not have a fever. Her white blood cell count is 11.8 probably related to stress. I will repeat this in the morning. There is no indication for pneumonia on her chest imaging. I will continue with steroids. Will continue with inhaled steroids and nebulized albuterol here. (3) Elevated troponin Conclusion/Plan: Initial troponin was 740. Repeat roughly 7 hours later is down to 58.3. Will continue to trend this with a repeat at 1800. (4) Diabetes Conclusion/Plan: I have reviewed outpatient chart. Last A1c on record is in July 2020 23 to 6.2%. At home she is on Ozempic which she last took on 04/08/2024; 2 mg weekly. She states she is not on Ozempic for weight loss. Additionally she takes 30 units of glargine daily as well as NovoLog with meals. Here in the hospital we will be mindful of the fact that she has taken Ozempic. We will place her on sliding scale insulin was carb controlled diet. We will continue glargine. We will monitor her glucose. I will send hemoglobin A1c as last recorded reading was about 8 months ago. (5) Hyperlipidemia Conclusion/Plan: Continue atorvastatin 20 mg daily. - Lab Results Fish Bones: 04/09/24 05:34 04/09/24 05:34 - Diagnostic Imaging Results Diagnostic Imaging Results: positive: Final report reviewed, Read contemporaneously Diagnostic Imaging Results Comments: Admission chest x-ray shows diffuse interstitial prominence and borderline cardiomegaly. Core Measures - Anticipated LOS I expect patient to be DC'd or transferred within 96 hours.: Yes - Issues Hospital Issues and Management Plan: Management of acute CHF exacerbation. Treatment of asthma exacerbation - DVT/VTE - Prophylaxis VTE/DVT Device ordered at admit?: Yes VTE/DVT Prophylaxis med ordered at admit?: Yes
--- NOTE | 2024-04-09 13:26 | PHARMACY PROGRESS NOTE ---
- Best Possible Medication History Admit Date and Time: 04/09/24 1117 Processed by: Pharmacy (Medication Reconciliation completed by Button Decorating Machine OperatorRosemarie with assistance of medical records from [facility]) Medications reviewed in ED?: No Medication History completed: Yes Patient Interview: Completed Secondary Source(s): Physician records, Insurance records As the person ultimately responsible for medication therapy, providers are able to order a medication from an existing home medication list in [facility] via the "Reconcile Routine" prior to Confirmation of that medication by it support technician. Such practice is discouraged except when the physician, in their clinical judgment, deems that a medical need exists for a medication without regard to previous use.
[2024-04-09] MEDS: FUROSEMIDE 40 MG/4 ML VIAL IVP ONE (14:41)
[2024-04-09] MEDS: SODIUM CHLORIDE FLUSH 0.9% 10 ML SYRINGE IVP SCH (15:53)
[2024-04-09] MEDS ORDERED: INSULIN LISPRO 300 UNIT/3 ML PEN SUBQ SCH (17:00)
[2024-04-09] MEDS: INSULIN LISPRO 300 UNIT/3 ML PEN SUBQ SCH ×2 (17:13)
[2024-04-09] MEDS: amLODIPine 5 MG TABLET PO ONE (19:02)
[2024-04-09] MEDS: BUDESONIDE 0.5 MG/2 ML NEB INH SCH (19:26)
[2024-04-09] MEDS: ACYCLOVIR 200 MG CAPSULE PO SCH (20:42)
[2024-04-09] MEDS: DOXYLAMINE 25 MG TABLET PO PRN (20:42)
[2024-04-09] MEDS: ATORVASTATIN 40 MG TABLET PO SCH (20:42)
[2024-04-09] MEDS: HEPARIN 5,000 UNIT/ML VIAL SUBQ SCH (20:43)
[2024-04-09] MEDS: MONTELUKAST 10 MG TABLET PO SCH (20:43)
[2024-04-09] MEDS: ATORVASTATIN 10 MG TABLET PO SCH (20:43)
[2024-04-09] MEDS ORDERED: INSULIN GLARGINE-YFGN 300 UNIT/3 ML PEN SUBQ SCH (21:00)
[2024-04-09] MEDS ORDERED: NON FORMULARY MED (Lisinopril [Lisinopril] 10 MG Tablet) PO SCH (21:00)
[2024-04-10 06:08] LABS: HCT - HEMATOCRIT 33.6 % (37.0-47.0); HGB - HEMOGLOBIN 11.1 g/dL (12.0-16.0); LYMPHOCYTES % (AUTO) 18.5 %; MEAN CORPUSCULAR HEMOGLOBIN 30.7 pg (27.0-31.0); MEAN CORPUSCULAR VOLUME 93.1 fL (81.0-99.0); MONOCYTES # (AUTO) 0.8 10^3/uL (0.0-1.0); MONOCYTES % (AUTO) 15.2 %; NEUTROPHILS # (AUTO) 3.5 10^3/uL (1.5-6.6); NEUTROPHILS % (AUTO) 65.9 %; PLT - PLATELET COUNT 213 10^3/uL (130-450); RED BLOOD COUNT 3.61 10^6/uL (4.20-5.40); RED CELL DISTRIBUTION WIDTH 14.6 % (12.0-15.0); WHITE BLOOD COUNT 5.3 x10^3/uL (4.8-10.8)
[2024-04-10] MEDS: PANTOPRAZOLE 40 MG TABLET PO SCH (06:15)
[2024-04-10 06:24] LABS: CALCIUM 9.2 mg/dL (8.5-10.3); CREATININE 0.5 mg/dL (0.6-1.3); POTASSIUM 3.5 mmol/L (3.5-4.5)
--- NOTE | 2024-04-10 07:52 | PROVIDER PROGRESS NOTE ---
Subjective - Prog Note Date Prog Note Date: 04/10/24 Prog Note Time: 07:50 - Subjective Pt reports feeling: Improved Subjective: feeling better as the day goes on. Did get up and walk with PT. RT oxygen testing not completed. has been able to wean to room air this afternoon. Current Medications - Current Medications Current Medications: Medications Methylprednisolone (Methylprednisolone Succinate 40 Mg/Ml Vial) 40 mg IVP DAILY [facility] Stop: 04/12/24 09:01 Acetaminophen (Acetaminophen 325 Mg Tablet) 650 mg PO Q4HR PRN PRN Reason: Pain 1 to 4, or Fever Furosemide (Furosemide 40 Mg/4 Ml Vial) 40 mg IVP DAILY [facility] Insulin Human Lispro (Insulin Lispro 300 Unit/3 Ml Pen) 1 - 9 unit SUBQ 0800,1200,1700,2100 [facility]; Protocol Last Admin: 04/09/24 20:44 Dose: 7 unit Losartan Potassium (Losartan 50 Mg Tablet) 100 mg PO DAILY [facility] Acyclovir (Acyclovir 200 Mg Capsule) 400 mg PO BID [facility] Last Admin: 04/09/24 20:42 Dose: 400 mg Albuterol (Albuterol Neb 2.5 Mg/3 Ml) 2.5 mg INH Q6H PRN PRN Reason: Shortness of Air/Wheezing Amlodipine Besylate (Amlodipine 5 Mg Tablet) 10 mg PO DAILY [facility] Aspirin (Aspirin Ec 325 Mg Tablet) 325 mg PO DAILY [facility] Atorvastatin Calcium (Atorvastatin 40 Mg Tablet) 40 mg PO QPM [facility] Last Admin: 04/09/24 20:42 Dose: Not Given Budesonide (Budesonide 0.5 Mg/2 Ml Neb) 0.5 mg INH RTBID [facility] Last Admin: 04/09/24 19:26 Dose: 0.5 mg Carvedilol (Carvedilol 12.5 Mg Tablet) 25 mg PO DAILY [facility] Doxylamine Succinate (Doxylamine 25 Mg Tablet) 25 mg PO QPM PRN PRN Reason: Insomnia Last Admin: 04/09/24 20:42 Dose: 25 mg Heparin Sodium (Porcine) (Heparin 5,000 Unit/Ml Vial) 5,000 unit SUBQ BID [facility] Last Admin: 04/09/24 20:43 Dose: 5,000 unit Insulin Glargine-yfgn (Insulin Glargine-Yfgn 300 Unit/3 Ml Pen) 30 unit SUBQ QDBREAKFAST [facility] Insulin Human Lispro (Insulin Lispro 300 Unit/3 Ml Pen) 5 unit SUBQ TIDWM [facility]; Protocol Last Admin: 04/09/24 17:13 Dose: 5 unit Montelukast Sodium (Montelukast 10 Mg Tablet) 10 mg PO QPM [facility] Last Admin: 04/09/24 20:43 Dose: 10 mg Pantoprazole Sodium (Pantoprazole 40 Mg Tablet) 40 mg PO QDAC [facility] Last Admin: 04/10/24 06:15 Dose: 40 mg Patient Own Medication (Estrogens, Conjugated [Premarin] 0.3 Mg Tablet) 1 each PO DAILY [facility] Objective - Vital Signs/Intake & Output Vital Signs: Vital Signs x48h Temp Pulse Resp BP Pulse Ox 04/10/24 05:50 36.2 C L 86 16 155/88 H 93 04/09/24 23:56 36.2 C L 93 18 169/87 H 94 Intake & Output: Intake & Output 04/07/24 04/08/24 04/09/24 04/10/24 23:59 23:59 23:59 23:59 Intake Total 1390 50 Output Total 3950 850 Balance -2560 -800 - Objective General Appearance: positive: No acute distress, Alert Eyes Bilateral: positive: Normal inspection ENT: positive: ENT inspection nml Neck: positive: Trachea midline Respiratory: positive: Chest non-tender, Breath sounds nml. negative: Wheezes, Rales Cardiovascular: positive: Regular rate & rhythm Skin: positive: Color nml Extremities: positive: Pedal edema (much decreased as compared to yesterday) - Lab Results Fish Bones: 04/10/24 05:23 04/10/24 05:23 Other Labs: Lab Results x24hrs 04/10/24 04/10/24 04/10/24 Range/Units 07:32 05:23 05:23 WBC (4.8-10.8) x10^3/uL RBC (4.20-5.40) 10^6/uL Hgb (12.0-16.0) g/dL Hct (37.0-47.0) % MCV (81.0-99.0) fL MCH (27.0-31.0) pg MCHC (32.0-36.0) g/dL RDW (12.0-15.0) % Plt Count (130-450) 10^3/uL MPV (7.9-10.8) fL Neut # (Auto) (1.5-6.6) 10^3/uL Lymph # (Auto) (1.5-3.5) 10^3/uL Wagoner # (Auto) (0.0-1.0) 10^3/uL Eos # (Auto) (0.0-0.7) 10^3/uL Baso # (Auto) (0.0-0.1) 10^3/uL Absolute Nucleated RBC x10^3/uL Nucleated RBC % /100WBC Sodium 133 L (135-145) mmol/L Potassium 3.5 (3.5-4.5) mmol/L Chloride 95 L (101-111) mmol/L Carbon Dioxide 32 (21-32) mmol/L Anion Gap 6.0 (6-13) BUN 17 (6-20) mg/dL Creatinine 0.5 L (0.6-1.3) mg/dL Estimated GFR (MDRD) 123 (>89) Glucose 277 H (74-104) mg/dL POC Whole Bld Glucose 250 H (70 - 100) mg/dL Calcium 9.2 (8.5-10.3) mg/dL Troponin I High Sens 57.5 H* (2.3-14.8) ng/L 04/10/24 04/09/24 04/09/24 Range/Units 05:23 20:32 17:49 WBC 5.3 (4.8-10.8) x10^3/uL RBC 3.61 L (4.20-5.40) 10^6/uL Hgb 11.1 L (12.0-16.0) g/dL Hct 33.6 L (37.0-47.0) % MCV 93.1 (81.0-99.0) fL MCH 30.7 (27.0-31.0) pg MCHC 33.0 (32.0-36.0) g/dL RDW 14.6 (12.0-15.0) % Plt Count 213 (130-450) 10^3/uL MPV 10.0 (7.9-10.8) fL Neut # (Auto) 3.5 (1.5-6.6) 10^3/uL Lymph # (Auto) 1.0 L (1.5-3.5) 10^3/uL Wagoner # (Auto) 0.8 (0.0-1.0) 10^3/uL Eos # (Auto) 0.0 (0.0-0.7) 10^3/uL Baso # (Auto) 0.0 (0.0-0.1) 10^3/uL Absolute Nucleated RBC 0.00 x10^3/uL Nucleated RBC % 0.0 /100WBC Sodium (135-145) mmol/L Potassium (3.5-4.5) mmol/L Chloride (101-111) mmol/L Carbon Dioxide (21-32) mmol/L Anion Gap (6-13) BUN (6-20) mg/dL Creatinine (0.6-1.3) mg/dL Estimated GFR (MDRD) (>89) Glucose (74-104) mg/dL POC Whole Bld Glucose 286 H (70 - 100) mg/dL Calcium (8.5-10.3) mg/dL Troponin I High Sens 65.0 H* (2.3-14.8) ng/L 04/09/24 04/09/24 Range/Units 16:33 11:48 WBC (4.8-10.8) x10^3/uL RBC (4.20-5.40) 10^6/uL Hgb (12.0-16.0) g/dL Hct (37.0-47.0) % MCV (81.0-99.0) fL MCH (27.0-31.0) pg MCHC (32.0-36.0) g/dL RDW (12.0-15.0) % Plt Count (130-450) 10^3/uL MPV (7.9-10.8) fL Neut # (Auto) (1.5-6.6) 10^3/uL Lymph # (Auto) (1.5-3.5) 10^3/uL Wagoner # (Auto) (0.0-1.0) 10^3/uL Eos # (Auto) (0.0-0.7) 10^3/uL Baso # (Auto) (0.0-0.1) 10^3/uL Absolute Nucleated RBC x10^3/uL Nucleated RBC % /100WBC Sodium (135-145) mmol/L Potassium (3.5-4.5) mmol/L Chloride (101-111) mmol/L Carbon Dioxide (21-32) mmol/L Anion Gap (6-13) BUN (6-20) mg/dL Creatinine (0.6-1.3) mg/dL Estimated GFR (MDRD) (>89) Glucose (74-104) mg/dL POC Whole Bld Glucose 304 H (70 - 100) mg/dL Calcium (8.5-10.3) mg/dL Troponin I High Sens 58.3 H* (2.3-14.8) ng/L Assessment/Plan - Problem List (1) Congestive heart failure Impression: She has had marked decrease in her pedal edema over the course of today. She is also decreased her oxygen requirements. She has received 40 mg of Lasix today. To good effect. I do not see the need to further diurese her today. She has been able to work with physical therapy today we will do exercise test for oxygen tomorrow. We will continue to diurese her and anticipate transitioning her to home with resumption of her previous Lasix dosing. Continue home Coreg continue home amlodipine continue home losartan Qualifiers: Heart failure type: unspecified Heart failure chronicity: acute on chronic Qualified Code(s): I50.9 - Heart failure, unspecified (2) Asthma attack Conclusion/Plan: She is not wheezing and appears comfortable on exam at this time. Steroids were discontinued today as her sugar was high and she did not seem to be wheezing or have any shortness of breath. Her oxygen requirements have not increased despite discontinuation of steroids. She has a history of asthma she is not on home oxygen she is under the care of a white shoe ragger and takes inhaled fl uticasone and albuterol at home. No indication that she has a pneumonia.She does not have a fever. White blood cell count has normalized Will continue with inhaled steroids and nebulized albuterol here. (3) Elevated troponin Conclusion/Plan: Initial troponin was 740. Repeat roughly 7 hours later is down to 58.3. Troponin has trended downward Laboratory Tests 04/09/24 04/09/24 04/09/24 05:27 11:48 17:49 Troponin I High Sens 740.0 H* 58.3 H* 65.0 H* 04/10/24 05:23 Troponin I High Sens 57.5 H* (4) Diabetes Conclusion/Plan: I have reviewed outpatient chart. Last A1c on record is in July 2020 23 to 6.2%. At home she is on Ozempic which she last took on 04/08/2024; 2 mg weekly. She states she is not on Ozempic for weight loss. Additionally she takes 30 units of glargine daily as well as NovoLog with meals. Here in the hospital we will be mindful of the fact that she has taken Ozempic. We will place her on sliding scale insulin was carb controlled diet. We will continue glargine. We will monitor her glucose. Her blood sugars have not been well-controlled however, I anticipate that as the steroids are metabolized her blood sugars will improve. Laboratory Tests 04/10/24 04/10/24 04/10/24 05:23 07:32 11:51 POC Whole Bld Glucose 250 H 285 H Hemoglobin A1c % 5.6 04/10/24 16:30 POC Whole Bld Glucose 276 H Hemoglobin A1c % (5) Hyperlipidemia Conclusion/Plan: Continue atorvastatin 20 mg daily. Qualifiers: Heart failure type: unspecified Heart failure chronicity: acute on chronic Qualified Code(s): I50.9 - Heart failure, unspecified
[2024-04-10] MEDS: INSULIN GLARGINE-YFGN 300 UNIT/3 ML PEN SUBQ SCH (07:54)
[2024-04-10] MEDS ORDERED: INSULIN GLARGINE-YFGN 300 UNIT/3 ML PEN SUBQ SCH (08:00)
[2024-04-10] MEDS: amLODIPine 5 MG TABLET PO SCH (09:00)
[2024-04-10] MEDS: ASPIRIN EC 325 MG TABLET PO SCH (09:01)
[2024-04-10] MEDS: ESTROGENS CONJUGATED 0.3 MG PO SCH (09:01)
[2024-04-10] MEDS: LOSARTAN 50 MG TABLET PO SCH (09:01)
[2024-04-10] MEDS: carvediloL 12.5 MG TABLET PO SCH (09:01)
[2024-04-10] MEDS: FUROSEMIDE 40 MG/4 ML VIAL IVP SCH (09:01)
[2024-04-10 10:05] LABS: ESTIMATED AVERAGE GLUCOSE 114 mg/dL (70-100); HEMOGLOBIN A1c% 5.6 % (4.27-6.07)
[2024-04-10] MEDS ORDERED: methylPREDNISolone SUCCINATE 40 MG/ML VIAL IVP SCH (12:00)
[2024-04-10] MEDS: INSULIN LISPRO 300 UNIT/3 ML PEN SUBQ SCH (17:23)
[2024-04-11 05:31] LABS: BASOPHILS # (AUTO) 0.1 10^3/uL (0.0-0.1); BASOPHILS % (AUTO) 0.8 %; EOSINOPHILS % (AUTO) 0.6 %; HCT - HEMATOCRIT 34.9 % (37.0-47.0); HGB - HEMOGLOBIN 11.2 g/dL (12.0-16.0); LYMPHOCYTES # (AUTO) 2.1 10^3/uL (1.5-3.5); LYMPHOCYTES % (AUTO) 32.6 %; MEAN CORPUSCULAR HEMOGLOBIN 30.6 pg (27.0-31.0); MEAN CORPUSCULAR HGB CONC 32.1 g/dL (32.0-36.0); MEAN CORPUSCULAR VOLUME 95.4 fL (81.0-99.0); MEAN PLATELET VOLUME 9.7 fL (7.9-10.8); MONOCYTES # (AUTO) 0.7 10^3/uL (0.0-1.0); MONOCYTES % (AUTO) 10.8 %; NEUTROPHILS # (AUTO) 3.5 10^3/uL (1.5-6.6); PLT - PLATELET COUNT 206 10^3/uL (130-450); RED BLOOD COUNT 3.66 10^6/uL (4.20-5.40); RED CELL DISTRIBUTION WIDTH 14.6 % (12.0-15.0); WHITE BLOOD COUNT 6.3 x10^3/uL (4.8-10.8)
[2024-04-11 05:47] LABS: CALCIUM 9.3 mg/dL (8.5-10.3); CREATININE 0.6 mg/dL (0.6-1.3); POTASSIUM 3.5 mmol/L (3.5-4.5)
[2024-04-11] MEDS: ALBUTEROL NEB 2.5 MG/3 ML INH PRN (07:44)
[2024-04-11] MEDS: INSULIN LISPRO 300 UNIT/3 ML PEN SUBQ SCH (11:40)
--- NOTE | 2024-04-11 14:05 | Discharge Plan ---
Discharge Plan Problem Reviewed?: Yes Disposition: Home, Self Care Condition: Good Prescriptions: Furosemide [Lasix] 20 mg PO DAILY #60 tablet Diet: Low Sodium Activity Restrictions: No Restrictions Shower Restrictions: No Driving Restrictions: Yes (do not drive if light headed) Health Concerns: If you start to notice that you are short of breath check your oxygen saturation both at rest and when you are walking. if it is less than 92% consistently you need to call your primary care doctor (Trudy Aivla). You have an extra resource for your care in that you are enrolled in the chronic care management program at [facility]. These are nurses that help keep track of your health conditions. You should have their contact information. You can get in touch with them by calling your primary care doctor. That number is [phone]. For your blood pressure I want you to stop taking the amlodipine. I want you to continue on the Cozaar 25 mg twice a day and the losartan 100 mg daily.Keep a log of your blood pressure at home. You will want to take this to your next doctor's appointments. I saw him that your congestive heart failure is getting worse or that fluid is backing up in your lungs is that you get short of breath when you lie down. I think this was happening to you at home. You may also note decreased tolerance to walking when this happens you will also notice swelling of your feet and ankles when this happens. I think the trick for you is going to be to find the balance between feeling dehydrated and not being short of breath. I understand that she stopped taking your fluid pill because she felt dehydrated but I think that this eventually caused fluid to back up in your lungs. your potassium has been fine while you are here, but you need to get this checked next week. Lasix can make your potassium low. make sure to eat plenty of fresh fruits and veggies to help keep your potassium high enough. You may need to find the right time of day to take your Lasix. It makes you urinate more for about 6 hours. For this reason we tell many people to take it in the morning, however this may not work for your lifestyle. Taking it in the afternoon after lunch may be a better choice. You need to decide what is best for you. While you have been in the hospital I have had you on 40 mg a day of Lasix. I understand that this may not be what you want to take at home. You can start at 20 mg a day at home. I want you to pay attention to what your symptoms are. These include all of the things I have discussed above: Shortness of breath when you lie down, decreased exercise tolerance, swelling in your feet and ankles. Plan of Treatment: - lasix (aka furosemide) for CHF. - control blood pressure. I want you to go off the amlopidine, and we will see if your blood pressure will tolerate this. - control asthma as needed with albuterol and fluticasone inhaler - continue on your diabetes medicines, just as before. Care Goals: to be able to engage in all the things you want to do in life, and not be too limited by your medical problems. This is our hope for you. No Smoking: If you smoke, Please STOP! Call for help. Follow-up with: Trudy Avila ARNP [Provider Admit Priv/Credential] -
--- NOTE | 2024-04-11 14:22 | DISCHARGE SUMMARY ---
Discharge Summary Admit Date: 04/09/24 Discharge Date: 04/11/24 Discharging Provider: Leonie Snyder PA-C Primary Care Provider: TARSHA Day Code Status: Attempt Resuscitation Condition at Discharge: Good Discharge Disposition: 01 Home, Self Care - DIAGNOSES Admission Diagnoses: Congestive heart failure Asthma attack Elevated troponin Diabetes Hyperlipidemia Discharge Diagnoses with Status of Each Condition: 1) Congestive heart failure Impression: She has had marked decrease in her pedal edema . She is also decreased her oxygen requirements. She has received 40 mg of Lasix for 2 days. To good effect. She passed oxygen desaturation testing was able to work with physical therapy.. We will continue to diurese her and anticipate transitioning her to home with resumption of her previous Lasix dosing.She is somewhat resistant to taking Lasix as an outpatient. We agreed that she would take 20 mg a day and monitor her symptoms. She will follow-up with her primary care physician on 04/16/2024. Continue home Coreg continue home losartan Qualifiers: Heart failure type: unspecified Heart failure chronicity: acute on chronic Qualified Code(s): I50.9 - Heart failure, unspecified (2) Asthma attack Conclusion/Plan: She is not wheezing and appears comfortable on exam. Steroids were discontinued as her sugar was high and she did not seem to be wheezing or have any shortness of breath. Her oxygen requirements have not increased despite discontinuation of steroids. She has a history of asthma she is not on home oxygen she is under the care of a e commerce manager and takes inhaled fluticasone and albuterol at home.She will resume these medications. No indication that she has a pneumonia.She does not have a fever. White blood cell count has normalized She was given inhaled steroids and nebulized albuterol while inpatient. (3) Elevated troponin Conclusion/Plan: Initial troponin was 740. Repeat roughly 7 hours later was down to 58.3. Troponin has trended downward Laboratory Tests 04/09/24 04/09/24 04/09/24 05:27 11:48 17:49 Troponin I High Sens 740.0 H* 58.3 H* 65.0 H* 04/10/24 05:23 Troponin I High Sens 57.5 H* (4) Diabetes Conclusion/Plan: I have reviewed outpatient chart. Last A1c on record is in July 2020 23 to 6.2%. At home she is on Ozempic which she last took on 04/08/2024; 2 mg weekly. She states she is not on Ozempic for weight loss. Additionally she takes 30 units of glargine daily as well as NovoLog with meals.Blood sugars remained elevated but improved with discontinuation of steroids. Laboratory Tests 04/09/24 04/09/24 04/10/24 16:33 20:32 07:32 POC Whole Bld Glucose 304 H 286 H 250 H 04/10/24 04/10/24 04/10/24 11:51 16:30 20:32 POC Whole Bld Glucose 285 H 276 H 225 H 04/11/24 04/11/24 04/11/24 07:42 11:14 17:05 POC Whole Bld Glucose 174 H 230 H 161 H (5) Hyperlipidemia Conclusion/Plan: Continue atorvastatin 20 mg daily. Qualifiers: Heart failure type: unspecified Heart failure chronicity: acute on chronic Qualified Code(s): I50.9 - Heart failure, unspecified - HPI History of Present Illness: From admission H&P: 68-year-old female who presents to the emergency department overnight with shortness of breath. She has been off her Lasix for about 6 weeks due to dehydration she states. She wears a CPAP at night which sometimes does trigger her asthma. In any event she woke up at midnight unable to breathe and called 911. Workup in the emergency department was consistent with acute CHF. She had pulmonary edema on chest x-ray required supplemental oxygen. She has a history of CHF last echocardiogram done in 2023 with ejection fraction around 50% per the ED physician who spoke with a shipping packer at [facility]. She reportedly had a cardiac cath in 2020 which showed no coronary artery disease. Troponin was elevated at 700 at the time of admission. Patient admits to increasing pedal edema over the last 6 weeks she states she wears compression hose and these help. She has been unable to lie flat in bed for some time due to paroxysmal nocturnal dyspnea. She also relates chronic cough/throat clearing. She states that she has asthma not COPD. She sees a e commerce manager, Dr. Lagos at [facility] also sees Dr. Aviles at [facility] for cardiology. Her primary care doctor is with [facility]. She has insulin- dependent diabetes for which she uses a Dexcom monitor she relates to me that her last A1c was "good" - CONSULTS | PROCEDURES Consultations: none Procedures: Chest x-ray: Diffuse interstitial prominence edema versus atypical infection. Borderline cardiomegaly - HOSPITAL COURSE Hospital Course: Admitted with acute CHF and exam asthma exacerbation with comorbidities of diabetes hypertension hyperlipidemia. She had initial oxygen requirements that were quite high requiring BiPAP for several hours prior to admission in the emergency department she was able to wean to room air by hospital day 2. On hospital day 3 she worked with respiratory therapy to do an exercise tolerance test and was able to pass this on room air. Blood sugar control was somewhat of an issue as she had been admitted on steroids we discontinued these she did not develop any wheezing or chest tightness or increasing oxygen requirements. She was discharged home in stable condition in the care of her with close primary care follow-up. I communicated with her primary care prior to discharge. She has some chronic lightheadedness. This persisted but she was steady getting back and forth to the bathroom. I did discontinue her amlodipine as her blood pressures were relatively well-controlled. We will see if this helps with her lightheadedness. - ALLERGIES Allergies/Adverse Reactions: Allergies Allergy/AdvReac Type Severity Reaction Status Date / Time hydrocodone [Hydrocodone] AdvReac Mild Nausea Verified 11/26/23 12:46 oxycodone AdvReac Nausea Verified 11/26/23 12:46 - MEDICATIONS Home Medications: Ambulatory Orders Medication Instructions Recorded Confirmed Acyclovir 400 mg PO BID 07/04/13 04/09/24 Carvedilol 25 mg PO BID 07/04/13 04/09/24 Estrogens, Conjugated [Premarin] 0.3 mg PO DAILY 07/04/13 04/09/24 Insulin Aspart [NovoLOG] 3 - 5 unit SUBQ TIDWM 07/04/13 04/09/24 Insulin Glargine,Hum.rec.anlog 30 units SQ DAILY 07/04/13 04/09/24 [Lantus] Omeprazole [PriLOSEC] 20 mg PO BID 07/04/13 04/09/24 Aspirin EC [Ecotrin] 325 mg PO DAILY 08/09/17 04/09/24 Metformin HCl [Glucophage] 1,000 mg PO BID 08/09/17 04/09/24 Albuterol Sulf [Ventolin Hfa 1 puffs INH Q6H PRN 04/09/24 04/09/24 Inhaler] Atorvastatin [Lipitor] 20 mg PO HS 04/09/24 04/09/24 Fluticasone Propionate 1 puffs PO BID 04/09/24 04/09/24 Ketoconazole 2% Cream [Nizoral 2% 1 each TOP BID PRN 04/09/24 04/09/24 Cream] Losartan Potassium 100 mg PO DAILY 04/09/24 04/09/24 Montelukast [Singulair] 10 mg PO QPM 04/09/24 04/09/24 Semaglutide [Ozempic] 2 mg SUBQ OAW 04/09/24 04/09/24 Triamcinolone 0.1% Cream [Kenalog 1 each TOP BID PRN 04/09/24 04/09/24 0.1% Cream] Albuterol 2.5 mg INH Q6H PRN ml 04/11/24 Furosemide [Lasix] 20 mg PO DAILY #60 tablet 04/11/24 Insulin Glargine-Yfgn [Semglee] 30 unit SUBQ QDBREAKFAST ml 04/11/24 - PHYSICAL EXAM AT DISCHARGE General Appearance: positive: No acute distress, Alert Eyes Bilateral: positive: Normal inspection ENT: positive: ENT inspection nml Neck: positive: Nml inspection Respiratory: positive: No respiratory distress, Breath sounds nml Cardiovascular: positive: Regular rate & rhythm Abdomen: positive: No distention Skin: positive: Color nml Extremities: positive: Non-tender, Pedal edema (much reduced, 1+ at ankles) Neurologic/Psychiatric: positive: Oriented x3 - LABS Result Diagrams: 04/11/24 05:16 04/11/24 05:16 - FOLLOW UP Follow Up: PCP 04/16. Scheduled. Also part of CCM program. - TIME SPENT Time Spent in Discharge (Minutes): 45
[2024-04-11 16:12] VITALS: BP 158/80; O2SAT 96
== END 2024-04-11 17:15 | disposition home or self-care (01) | DRG 292 ==
LOC: EDBD → EDUNIT# → ED 05:21 → MS2 11:17 → OBSVTOIN 04-10 10:13
PROVIDERS: ADMIT Physician Assistant Medical; ATTEND Physician Assistant Medical
DX: I11.0 Hypertensive heart disease with heart failure (principal); J45.901 Unspecified asthma with (acute) exacerbation; I50.9 Heart failure, unspecified; J81.0 Acute pulmonary edema; R79.89 Other specified abnormal findings of blood chemistry; E11.9 Type 2 diabetes mellitus without complications; E78.00 Pure hypercholesterolemia, unspecified; I49.3 Ventricular premature depolarization; Z20.818 Contact with and (suspected) exposure to other bacterial communicable diseases; Z20.822 Contact with and (suspected) exposure to COVID-19; Z20.828 Contact with and (suspected) exposure to other viral communicable diseases; G47.30 Sleep apnea, unspecified; Z79.4 Long term (current) use of insulin; Z79.82 Long term (current) use of aspirin; Z79.85 Long-term (current) use of injectable non-insulin antidiabetic drugs; Z79.890 Hormone replacement therapy; Z79.899 Other long term (current) drug therapy
CPT/HCPCS: 36415; 36600; 71045; 80048; 80053; 82803; 83036; 83690; 83880; 84484; 85025; 87633; 93005; 94640; 94660; 94761; 96374; 96376; 99291; A9270; G0378; J1815; J7626

== ENCOUNTER 2024-09-02 07:35 | Inpatient (IN) ==
[2024-09-02] MEDS ORDERED: IPRATROPIUM/ALBUTEROL 3 ML NEB INH ONE (07:52)
[2024-09-02] MEDS: IPRATROPIUM/ALBUTEROL 3 ML NEB INH STA (07:54)
--- NOTE | 2024-09-02 07:54 | ED Physician Documentation ---
History of Present Illness Stated complaint Stated Complaint: SOA, CAN'T BREATHE Chief complaint Chief Complaint: Resp History obtained from History obtained from: Patient Additonal information Additional information: She is a history of CHF, hypertension, COPD, sleep apnea with CPAP. Reportedly had a negative coronary angiography about 3 years ago in 2020 and EF of 50%. Over the last 5 days she has become increasingly short of breath with a cough. Denies runny nose, sore throat or fever. She denies chest pain with this. No increase in pedal edema. That said she has increased her Lasix to 1-1/2 tablets recently. Denies chest pain. Meds/Allgy Home Medications Ambulatory Orders Medication Instructions Recorded Confirmed conjugated estrogens 0.3 mg tablet 0.3 mg PO DAILY 07/04/13 07/09/24 (Premarin) Fluticasone Propionate 1 puff PO BID 04/09/24 07/09/24 albuterol sulfate 90 mcg/actuation 1 puff inhalation Q6H PRN 04/09/24 07/09/24 aerosol inhaler (Ventolin HFA) Shortness Of Air/Wheezing triamcinolone acetonide 0.1 % 1 ea topical BID PRN Per Physician 04/09/24 07/09/24 topical cream Order albuterol sulfate 2.5 mg/3 mL 2.5 mg (3 mL) inhalation Q6H PRN 04/11/24 07/09/24 (0.083 %) solution for nebulization Shortness Of Air/Wheezing insulin glargine-yfgn 100 unit/mL 30 unit (0.3 mL) subcut QDBREAKFAST 04/11/24 07/09/24 (3 mL) subcutaneous pen atorvastatin 20 mg tablet 20 mg PO HS #90 tabs 06/17/24 07/09/24 furosemide 40 mg tablet 40 mg PO QDAY #30 tabs 06/17/24 07/09/24 metformin 1,000 mg tablet 1,000 mg PO BID #90 tabs 06/17/24 07/09/24 potassium chloride 20 mEq 20 meq PO QDAY #30 tabs 06/17/24 07/09/24 tablet,extended release (K-Tab) semaglutide 2 mg/dose (8 mg/3 mL) 2 mg (0.75 mL) subcut OAW #3 mL 06/17/24 07/09/24 subcutaneous pen injector (Ozempic) insulin aspart U-100 100 unit/mL 3 - 5 unit (0.03 - 0.05 mL) subcut 06/24/24 07/09/24 (3 mL) subcutaneous pen (Novolog TIDWM #15 mL FlexPen U-100 Insulin aspart) acyclovir 400 mg tablet 400 mg PO BID #90 tabs 07/09/24 07/09/24 aspirin 81 mg tablet,delayed 81 mg PO QDAY #90 tabs 07/09/24 07/09/24 release blood sugar diagnostic (FreeStyle 07/09/24 07/09/24 Test strips) blood-glucose meter,continuous 07/09/24 07/09/24 (Dexcom G6 Game Manager) blood-glucose sensor (Dexcom G6 07/09/24 07/09/24 Sensor device) carvedilol 25 mg tablet 25 mg PO BID #180 tabs 07/09/24 07/09/24 insulin glargine 100 unit/mL 30 unit subcut DAILY 07/09/24 07/09/24 subcutaneous solution (Lantus U-100 Insulin) insulin syringe-needle U-100 0.5 07/09/24 07/09/24 mL 31 gauge x 5/16" (BD Insulin Syringe Ultra-Fine) ketoconazole 2 % topical cream 1 applic topical BID PRN Per 07/09/24 07/09/24 Physician Order #30 grams lancets 28 gauge (FreeStyle 07/09/24 07/09/24 Lancets) losartan 100 mg tablet 100 mg PO DAILY #90 tabs 07/09/24 07/09/24 montelukast 10 mg tablet 10 mg PO QPM #90 tabs 07/09/24 07/09/24 omeprazole 20 mg capsule,delayed 20 mg PO BID #180 caps 07/09/24 07/09/24 release tirzepatide 2.5 mg/0.5 mL 2.5 mg (0.5 mL) subcut QWEEK #2.5 08/19/24 subcutaneous pen injector mL (Pavan) Allergies Allergies Allergy/AdvReac Type Severity Reaction Status Date / Time lisinopril Allergy Severe Cough Verified 07/09/24 13:40 hydrocodone (Hydrocodone) AdvReac Mild Nausea Verified 07/09/24 13:40 oxycodone AdvReac Nausea Verified 07/09/24 13:40 [facility] Medical History Medical History (Updated 09/02/24 @ 08:49 by Ghanshyam Cuenca MD) Hammer toe Young neuroma History of falling Elevated troponin Rib fracture Contusion of elbow Pulmonary edema Cough COPD exacerbation Syncope Asthma attack History of colon cancer Carpal tunnel syndrome Herpes simplex infection of eye Surgical History Surgical History (Updated 07/09/24 @ 19:[address] JUDGE) History of colonoscopy History of arthroplasty of both knees S/P rotator cuff repair 2002 and 2023 H/O dilation and curettage History of bunionectomy of left great toe H/O arthroscopy of knee History of hysterectomy History of laparoscopic cholecystectomy Family History Family History (Updated 07/09/24 @ 09:56 by CHANDAN CAMACHO LPN) Father CAD (coronary artery disease) Hyperlipidemia Cancer Social History Social History (Updated 07/09/24 @ 13:45 by CHANDAN CAMACHO LPN) Smoking Status: Former smoker If you are a former smoker, when did you quit? (Date/Year): 30 years ago Do you dip or chew tobacco?: No Do you vape?: No Living arrangement: At home Marital Status: Living Condition: With spouse/s.o. Support Person: Yes Relationship: Level: Independent History of Abuse: No ETOH Use: Frequency: Occasional Substance Use: denies use POLST Patient has POLST: No POLST Status: Full Code Exam Constitutional normal general appearance and no apparent distress Somewhat labored breathing but speaking in full sentences, and not particularly ill-appearing per se. Initial room air saturation 62%, she is hypertensive and tachycardic as well. Respiratory Tachypneic, diminished throughout with wheezing especially at the left base. Cardiovascular normal heart rate noted, regular rhythm noted and no murmur Gastrointestinal nontender to palpation and nontender to percussion Extremities Mild pitting pedal edema with venous stasis changes, symmetric Neurology GCS 15 Results Vitals Vitals: Vital Signs - 24 hr 09/02/24 07:44 09/02/24 07:58 09/02/24 08:50 Temperature 36.7 C Pulse Rate 121 H 123 H 113 H Respiratory Rate 40 H 24 18 Blood Pressure 234/135 H O2 Saturation 62 L Oxygen Delivery Method O2 Source Room air Simple Mask Nasal cannula If not protocol: Oxygen Flow, liters/minute 10 5 Pain Intensity 0 09/02/24 08:54 09/02/24 08:56 Temperature Pulse Rate 106 H Respiratory Rate 20 Blood Pressure 182/88 H O2 Saturation 98 Oxygen Delivery Method Nasal Cannula O2 Source Nasal cannula If not protocol: Oxygen Flow, liters/minute 4 4 Pain Intensity 0 Oxygen O2 Source Nasal cannula Labs Labs: Laboratory Tests 09/02/24 09/02/24 07:58 09:00 WBC 6.1 RBC 3.86 L Hgb 12.4 Hct 39.6 MCV 102.6 H MCH 32.1 H MCHC 31.3 L RDW 16.0 H Plt Count 218 MPV 10.1 Neut # (Auto) 3.6 Lymph # (Auto) 1.7 Motley # (Auto) 0.6 Eos # (Auto) 0.2 Baso # (Auto) 0.0 Absolute Nucleated RBC 0.00 Nucleated RBC % 0.0 Sodium 139 Potassium 4.4 Chloride 100 L Carbon Dioxide 32 Anion Gap 7.0 BUN 15 Creatinine 0.7 Estimated GFR (MDRD) 83 L Glucose 179 H Calcium 9.4 Total Bilirubin 0.3 AST 35 ALT 24 Alkaline Phosphatase 67 Troponin I High Sens 30.7 H* B-Natriuretic Peptide 232 H Total Protein 6.6 Albumin 4.0 Globulin 2.6 Albumin/Globulin Ratio 1.5 Nasal Adenovirus (PCR) NOT DETECTED Nasal B. parapertussis DNA (PCR) NOT DETECTED Nasal Coronavir 229E PCR NOT DETECTED Nasal Coronavir HKU1 PCR NOT DETECTED Nasal Coronavir NL63 PCR NOT DETECTED Nasal Coronavir OC43 PCR NOT DETECTED Nasal Enterovir/Rhinovir PCR NOT DETECTED Nasal Influenza B PCR NOT DETECTED Nasal Influenza A PCR NOT DETECTED Nasal Parainfluen 1 PCR NOT DETECTED Nasal Parainfluen 2 PCR NOT DETECTED Nasal Parainfluen 3 PCR NOT DETECTED Nasal Parainfluen 4 PCR NOT DETECTED Nasal RSV (PCR) NOT DETECTED Nasal B.pertussis DNA PCR NOT DETECTED Nasal C.pneumoniae (PCR) NOT DETECTED Uday Human Metapneumo PCR NOT DETECTED Nasal M.pneumoniae (PCR) NOT DETECTED Nasal SARS-CoV-2 (PCR) NOT DETECTED Rads (name of study) Single view chest x-ray demonstrating mild CHF: Relevant Findings:: Final report received and EMP independent interpretation of test PD Medical Decision Making ED course ED course: She presents with shortness of breath gradual onset and associate with a cough. She is tachypneic and very hypoxic. Lungs diminished with wheezing and really no increase in pedal edema over baseline. She was administered a DuoNeb and Solu-Medrol, it looks mostly like COPD initially. Her blood pressure was quite elevated and on recheck was still elevated so ordered some Nitropaste and Lasix. Her BNP is modestly elevated, about in line with priors and her troponin although modestly elevated is actually better than recent baselines. 10 mg albuterol neb ordered and at the time of discussion with the hospitalist (8:45 AM) she was still on 10 L of oxygen. Sats around 90%. The patient and family are counseled as to the diagnosis and need for admission. This document was made in part using voice recognition software, while efforts are made to proofread this document, sound alike an grammatical errors may occur. Critical Care Time(min): 37 Time Includes: Direct patient care, Review records, Reassess patient, Document care, Coordinate care, Medical consult and Family consult for tx dec Data interpretation: Labs and Pulse ox Procedures excluded from critical care time: EKG Discharge Plan Discharge Patient Disposition: 66 [facility] DC/Xfer Clinical Impression: Type 2 diabetes mellitus with diabetic neuropathy, unspecified Qualifiers: Diabetes mellitus exterminator insulin use: with longterm use Qualified Code(s): E11.40 - Type 2 diabetes mellitus with diabetic neuropathy, unspecified COPD (chronic obstructive pulmonary disease) Qualifiers: COPD type: unspecified COPD Qualified Code(s): J44.9 - Chronic obstructive pulmonary disease, unspecified Congestive heart failure Qualifiers: Heart failure type: unspecified Heart failure chronicity: acute on chronic Qualified Code(s): I50.9 - Heart failure, unspecified Respiratory failure Qualifiers: Chronicity: acute Respiratory failure complication: hypoxia Qualified Code(s): J96.01 - Acute respiratory failure with hypoxia Interventions: ED Admission Assessment Last Done: 09/02/24 10:28
[2024-09-02 08:07] LABS: BASOPHILS % (AUTO) 0.7 %; EOSINOPHILS # (AUTO) 0.2 10^3/uL (0.0-0.7); EOSINOPHILS % (AUTO) 3.3 %; HCT - HEMATOCRIT 39.6 % (37.0-47.0); HGB - HEMOGLOBIN 12.4 g/dL (12.0-16.0); LYMPHOCYTES # (AUTO) 1.7 10^3/uL (1.5-3.5); LYMPHOCYTES % (AUTO) 27.8 %; MEAN CORPUSCULAR HEMOGLOBIN 32.1 pg (27.0-31.0); MEAN CORPUSCULAR HGB CONC 31.3 g/dL (32.0-36.0); MEAN CORPUSCULAR VOLUME 102.6 fL (81.0-99.0); MEAN PLATELET VOLUME 10.1 fL (7.9-10.8); MONOCYTES # (AUTO) 0.6 10^3/uL (0.0-1.0); MONOCYTES % (AUTO) 9.7 %; NEUTROPHILS # (AUTO) 3.6 10^3/uL (1.5-6.6); NEUTROPHILS % (AUTO) 58.2 %; PLT - PLATELET COUNT 218 10^3/uL (130-450); RED BLOOD COUNT 3.86 10^6/uL (4.20-5.40); WHITE BLOOD COUNT 6.1 x10^3/uL (4.8-10.8)
[2024-09-02] MEDS: methylPREDNISolone SUCCINATE 125 MG/2 ML VIAL IVP STA (08:07)
[2024-09-02 08:26] LABS: ALBUMIN/GLOBULIN RATIO 1.5 (1.0-2.2); BILIRUBIN,TOTAL 0.3 mg/dL (0.2-1.0); CALCIUM 9.4 mg/dL (8.5-10.3); CREATININE 0.7 mg/dL (0.6-1.3); POTASSIUM 4.4 mmol/L (3.5-4.5); TOTAL PROTEIN 6.6 g/dL (6.4-8.9)
--- NOTE | 2024-09-02 08:26 | XRAY Report ---
PROCEDURE: XR Chest 1V INDICATIONS: dyspnea TECHNIQUE: One view of the chest was acquired. COMPARISON: 04/09/2024. FINDINGS: Surgical changes and devices: None. Lungs and pleura: No pleural effusions or pneumothorax. There is suggestion of mild pulmonary vascul ar congestion and pulmonary edema. No definite focal infiltrate. Mediastinum: Mediastinal contours appear normal. Heart size is enlarged. Bones and chest wall: No suspicious bony lesions. Overlying soft tissues appear unremarkable. IMPRESSION: Finding is concerning for mild CHF. No definite focal infiltrate. No pleural effusion or pneumothorax. Reviewed by: Carroll Mims MD on 09/02/2024 8:25 AM [facility] Approved by: Carroll Mims MD on 09/02/2024 8:25 AM PST Station ID: [id number]
[2024-09-02] MEDS: ALBUTEROL NEB 2.5 MG/3 ML INH STA (08:44)
[2024-09-02] MEDS: NITROGLYCERIN 2% PASTE TOP STA (08:48)
[2024-09-02] MEDS: FUROSEMIDE 100 MG/10 ML VIAL IVP STA (08:49)
[2024-09-02] MEDS ORDERED: SODIUM CHLORIDE FLUSH 0.9% 10 ML SYRINGE IVP PRN (10:30)
[2024-09-02] MEDS ORDERED: ACETAMINOPHEN 325 MG TABLET PO PRN (10:30)
[2024-09-02 10:34] LABS: B. PARAPERTUSSIS- RESP PCR PAN NOT DETECTED; B. PERTUSSIS- RESP PCR PANEL NOT DETECTED; C. PNEUMONIAE- RESP PCR PANEL NOT DETECTED; CORONAVIRUS 229E-RESP PCR NOT DETECTED; CORONAVIRUS HKU1-RESP PCR NOT DETECTED; CORONAVIRUS NL63-RESP PCR NOT DETECTED; CORONAVIRUS OC43-RESP PCR NOT DETECTED; HUMAN METAPNEUMOVIRUS NOT DETECTED; INFLUENZA A- RESP PCR PANEL NOT DETECTED; INFLUENZA B - RESP PCR PANEL NOT DETECTED; M. PNEUMONIAE- RESP PCR PANEL NOT DETECTED; PARAINFLUENZA VIRUS 1 NOT DETECTED; PARAINFLUENZA VIRUS 2 NOT DETECTED; PARAINFLUENZA VIRUS 4 NOT DETECTED; RHINOVIRUS/ENTEROVIRUS NOT DETECTED; RSV- RESP PCR PANEL NOT DETECTED; SARS-CoV-2 -RESP PCR PANEL NOT DETECTED
[2024-09-02] MEDS: ASPIRIN EC 81 MG TABLET PO SCH (10:59)
[2024-09-02] MEDS: ATORVASTATIN 10 MG TABLET PO SCH (10:59)
--- NOTE | 2024-09-02 10:59 | HISTORY & PHYSICAL EXAMINATION ---
Chief Complaint Chief Complaint Chief Complaint: Difficulty breathing History of Present Illness Admitted From Admitted From:: Home History Obtained From Records Reviewed: Yes History obtained from: Patient, patient's at bedside Exam Limitations: None History of Present Illness HPI Comment/Other: Patient is a 68-year-old female with a history of COPD not on home oxygen, heart failure with preserved ejection fraction, hypertension who presented for shortness of breath. She states over the last few days, has gotten progressively worse. She states it does not matter if she is lying flat or sitting up, she is feeling short of breath. Activity does make it worse. She has no associated chest pain, chest tightness, palpitations, feelings of heart racing. She does endorse a dry cough. She has no sputum production. Of note, she stated that she had an identical episode happened in 04/2024. Over the last few days, she states that not much is changing her daily schedule. Her diet is the same. She does not endorse any increased dietary salt intake or fluid intake. She has not weighed herself in the last few weeks, so she does not know if she has increased in water weight. She does note that her lower extremities are more swollen than usual. Nobody around her has been sick. She denies any fevers or chills. She has not been around any tobacco smoke. She has not missed any of her home medication doses. The only change from her medications in April is that she now takes Lasix 60 mg a day as needed for her lower extremity swelling. Since she has been here, she has received a dose of Solu-Medrol, placed on Oxymizer, as well as received a dose of IV Lasix. She feels much improved. Meds/Allgy Home Medications Ambulatory Orders Medication Instructions Recorded Confirmed conjugated estrogens 0.3 mg tablet 0.3 mg PO DAILY 07/04/13 09/02/24 (Premarin) albuterol sulfate 90 mcg/actuation 1 puff inhalation Q6H PRN 04/09/24 09/02/24 aerosol inhaler (Ventolin HFA) Shortness Of Air/Wheezing triamcinolone acetonide 0.1 % 1 ea topical BID PRN Per Physician 04/09/24 09/02/24 topical cream Order insulin glargine-yfgn 100 unit/mL 30 unit (0.3 mL) subcut QDBREAKFAST 04/11/24 07/09/24 (3 mL) subcutaneous pen atorvastatin 20 mg tablet 20 mg PO HS #90 tabs 06/17/24 09/02/24 furosemide 40 mg tablet 40 mg PO QDAY #30 tabs 06/17/24 09/02/24 metformin 1,000 mg tablet 1,000 mg PO BID #90 tabs 24 09/02/24 potassium chloride 20 mEq 20 meq PO QDAY #30 tabs 06/17/24 09/02/24 tablet,extended release (K-Tab) insulin aspart U-100 100 unit/mL 3 - 5 unit (0.03 - 0.05 mL) subcut 06/24/24 09/02/24 (3 mL) subcutaneous pen (Novolog TIDWM #15 mL FlexPen U-100 Insulin aspart) acyclovir 400 mg tablet 400 mg PO BID #90 tabs 07/09/24 09/02/24 aspirin 81 mg tablet,delayed 81 mg PO QDAY #90 tabs 07/09/24 09/02/24 release blood sugar diagnostic (FreeStyle 07/09/24 07/09/24 Test strips) blood-glucose meter,continuous 07/09/24 07/09/24 (Dexcom G6 Country Manager) blood-glucose sensor (Dexcom G6 07/09/24 07/09/24 Sensor device) carvedilol 25 mg tablet 25 mg PO BID #180 tabs 07/09/24 09/02/24 insulin glargine 100 unit/mL 40 unit subcut DAILY 07/09/24 09/02/24 subcutaneous solution (Lantus U-100 Insulin) insulin syringe-needle U-100 0.5 07/09/24 07/09/24 mL 31 gauge x 5/16" (BD Insulin Syringe Ultra-Fine) ketoconazole 2 % topical cream 1 applic topical BID PRN Per 07/09/24 09/02/24 Physician Order #30 grams lancets 28 gauge (FreeStyle 07/09/24 07/09/24 Lancets) montelukast 10 mg tablet 10 mg PO QPM #90 tabs 07/09/24 09/02/24 omeprazole 20 mg capsule,delayed 20 mg PO BID #180 caps 07/09/24 09/02/24 release tirzepatide 2.5 mg/0.5 mL 2.5 mg (0.5 mL) subcut QWEEK #2.5 08/19/24 subcutaneous pen injector mL (Pavan) fluticasone propionate 100 1 inh inhalation BID 09/02/24 09/02/24 mcg/actuation blister powder for inhalation losartan 100 mg tablet 50 mg PO BID 09/02/24 09/02/24 Allergies Allergies Allergy/AdvReac Type Severity Reaction Status Date / Time lisinopril Allergy Severe Cough Verified 07/09/24 13:40 hydrocodone (Hydrocodone) AdvReac Mild Nausea Verified 07/09/24 13:40 oxycodone AdvReac Nausea Verified 07/09/24 13:40 [facility] Medical History Medical History Hammer toe Young neuroma History of falling Elevated troponin Rib fracture Contusion of elbow Pulmonary edema Cough COPD exacerbation Syncope Asthma attack History of colon cancer Carpal tunnel syndrome Herpes simplex infection of eye Surgical History Surgical History History of colonoscopy History of arthroplasty of both knees S/P rotator cuff repair 2002 and 2023 H/O dilation and curettage History of bunionectomy of left great toe H/O arthroscopy of knee History of hysterectomy History of laparoscopic cholecystectomy Family History Family History Father CAD (coronary artery disease) Hyperlipidemia Cancer Social History Social History Smoking Status: Former smoker If you are a former smoker, when did you quit? (Date/Year): 30 years ago Do you dip or chew tobacco?: No Do you vape?: No Living arrangement: At home Marital Status: Living Condition: With spouse/s.o. Support Person: Yes Relationship: Level: Independent History of Abuse: No ETOH Use: Frequency: Occasional Substance Use: denies use POLST Patient has POLST: No POLST Status: Full Code Review of Systems Constitutional Reports: Weakness; Denies: Fatigue, Fever, Chills, Malaise, Diaphoresis, Night sweats, Changes in appetite or eating habits, Poor appetite, Weight gain or Weight loss Eyes Denies: Pain, Irritation, Blurry vision or Floaters Ears, nose, mouth, and throat Denies: Ear pain, Ear discharge, Hearing loss, Hearing aids, Neck pain or Throat swelling Cardiovascular Reports: edema, swelling of feet/ankles, shortness of breath with exertion and shortness of breath when lying down; Denies: Irregular heart rate, chest pain, palpitations, Syncope or lightheadedness Respiratory Reports: Shortness of breath and Cough; Denies: Sputum production, Change in phlegm color, Wheezing, Apnea or Snoring Gastrointestinal Denies: Abdominal pain, Abdominal distention, Nausea, Vomiting, Poor appetite, Bile emesis, Coffee grounds in vomit, Heartburn, Diarrhea or Constipation Genitourinary Denies: Painful urination, Urinary frequency, Urinary urgency, Nocturia, Urinary incontinence, Decreased urine ouput, Pelvic pain or Flank pain Musculoskeletal Reports: Extremity swelling; Denies: Back pain, Neck pain or Extremity pain Integumentary/Breast Denies: Rash, Itching, Dryness or Redness Neurological Denies: Headache, General weakness, Focal weakness or Weakness in extremities Psychiatric Denies: Depression, Anxiety, Mood swings or Panic attacks Endocrine Denies: Excessive urination, Excessive thirst or Fatigue Hematologic/Lymphatic Denies: Anemia or Easy bruising Allergic/Immunologic Denies: Hives, Throat swelling, Tongue swelling, Facial swelling or Wheezing Prior Level of Functionality: Independent of ADLs. Exam Constitutional normal general appearance, no apparent distress, average body habitus, no limitations and alert HENMT normocephalic, head/scalp atraumatic, hearing grossly normal bilaterally and external ears normal Eyes PERRL, EOMs intact bilaterally and conjunctivae normal Neck/C-Spine visual inspection normal and cervical spine nontender Lymph no lymphadenopathy noted Chest inspection of chest normal and palpation of chest normal Respiratory breath sounds equal bilaterally, normal respiratory effort, auscultation abnormal, wheezing noted (expiratory wheezes), rales noted (base) and no use of accessory muscles Cardiovascular normal heart rate noted, regular rhythm noted, no gallop, no rub and no murmur Gastrointestinal abdomen normal to inspection, abdomen soft to palpation, nontender to percussion and nondistended Genitourinary no CVA tenderness and bladder normal to palpation Extremities normal to inspection, normal to palpation and full ROM Neurology no movement abnormality noted, no focal motor deficit noted and no sensory deficits noted Psychiatry mental status grossly normal, oriented x3, thought process normal and cooperative Skin skin color normal, no rash and no lesions Conclusion/Plan Problem List (1) Respiratory failure: Plan: Acute hypoxic respiratory failure on admission requiring 10 L. Now downtrended to 4 L. Likely flash pulmonary edema in setting of hypertensive emergency. Continue home antihypertensives, including Coreg, losartan, and increased dose of IV Lasix. Also has some wheezing on exam. May have concurrent COPD exacerbation. Continue IV Lasix 40 mg twice daily. Continue Solu-Medrol 40 mg every 6 hours for 3 doses, followed by prednisone 40 mg daily starting tomorrow. Qualifiers: Chronicity: acute Respiratory failure complication: hypoxia Qualified Code(s): J96.01 - Acute respiratory failure with hypoxia (2) Diabetes mellitus type 2, insulin dependent: Plan: Continue insulin glargine 35 units in the morning, insulin sliding scale, moderate. (3) Osteoarthritis: Plan: Continue Tylenol as needed. Qualifiers: Osteoarthritis location: unspecified site Osteoarthritis type: u nspecified Qualified Code(s): M19.90 - Unspecified osteoarthritis, unspecified site (4) DEBBIE on CPAP: Plan: Continue home CPAP at night. (5) Essential hypertension: Plan: Continue home antihypertensives, including Coreg, losartan, and Lasix. (6) Hyperlipidemia: Plan: Continue home statin. Qualifiers: Hyperlipidemia type: unspecified Qualified Code(s): E78.5 - Hyperlipidemia, unspecified (7) Congestive heart failure: Plan: Preserved ejection fraction. Maintain euvolemic status. Continue IV Lasix as outlined above. Qualifiers: Heart failure chronicity: acute on chronic Heart failure type: u nspecified Qualified Code(s): I50.9 - Heart failure, unspecified Lab Results Lab results reviewed: Yes 09/02/24 07:58 09/02/24 07:58 Diagnostic Imaging Results Diagnostic Imaging Results: positive Final report reviewed EKG Results EKG Interpreted Independently: Yes Core Measures Anticipated LOS I expect patient to be DC'd or transferred within 96 hours.: Yes DVT/VTE - Prophylaxis VTE/DVT Device ordered at admit?: Yes Stroke - Rehab Assessment Rehab services assessment to be ordered?: No Not Ordered - Medical Reason: Not indicated AMI - Statin at Admit Aspirin Prescribed on Admit: No Not Ordered - Medical Reason: Not indicated
[2024-09-02] MEDS: LOSARTAN 50 MG TABLET PO SCH (11:00)
[2024-09-02] MEDS: carvediloL 12.5 MG TABLET PO SCH (11:00)
[2024-09-02] MEDS: INSULIN LISPRO 300 UNIT/3 ML PEN SUBQ SCH (11:15)
[2024-09-02] MEDS: methylPREDNISolone SUCCINATE 40 MG/ML VIAL IVP SCH (11:16)
[2024-09-02] MEDS: INSULIN GLARGINE-YFGN 300 UNIT/3 ML PEN SUBQ SCH (11:36)
--- NOTE | 2024-09-02 15:41 | PHARMACY PROGRESS NOTE ---
Best Possible Medication History Admit Date and Time: 09/02/24 [id number] Home Medications Medication Instructions Recorded Confirmed Type conjugated estrogens 0.3 mg tablet 0.3 mg PO DAILY 07/04/13 09/02/24 History (Premarin) albuterol sulfate 90 mcg/actuation 1 puff inhalation Q6H PRN 04/09/24 09/02/24 History aerosol inhaler (Ventolin HFA) Shortness Of Air/Wheezing triamcinolone acetonide 0.1 % 1 ea topical BID PRN Per Physician 04/09/24 09/02/24 History topical cream Order atorvastatin 20 mg tablet 20 mg PO HS #90 tabs 06/17/24 09/02/24 Rx furosemide 40 mg tablet 40 mg PO QDAY #30 tabs 06/17/24 09/02/24 Rx metformin 1,000 mg tablet 1,000 mg PO BID #90 tabs 06/17/24 09/02/24 Rx potassium chloride 20 mEq 20 meq PO QDAY #30 tabs 06/17/24 09/02/24 Rx tablet,extended release (K-Tab) insulin aspart U-100 100 unit/mL 3 - 5 unit (0.03 - 0.05 mL) subcut 06/24/24 09/02/24 Rx (3 mL) subcutaneous pen (Novolog TIDWM #15 mL FlexPen U-100 Insulin aspart) acyclovir 400 mg tablet 400 mg PO BID #90 tabs 07/09/24 09/02/24 Rx blood sugar diagnostic (FreeStyle 07/09/24 07/09/24 History Test strips) blood-glucose meter,continuous 07/09/24 07/09/24 History (Dexcom G6 Building Construction Supervisor) blood-glucose sensor (Dexcom G6 07/09/24 07/09/24 History Sensor device) carvedilol 25 mg tablet 25 mg PO BID #180 tabs 07/09/24 09/02/24 Rx insulin glargine 100 unit/mL 30 unit subcut DAILY 07/09/24 09/02/24 History subcutaneous solution (Lantus U-100 Insulin) insulin syringe-needle U-100 0.5 07/09/24 07/09/24 History mL 31 gauge x 5/16" (BD Insulin Syringe Ultra-Fine) ketoconazole 2 % topical cream 1 applic topical BID PRN Per 07/09/24 09/02/24 Rx Physician Order #30 grams lancets 28 gauge (FreeStyle 07/09/24 07/09/24 History Lancets) montelukast 10 mg tablet 10 mg PO QPM #90 tabs 07/09/24 09/02/24 Rx omeprazole 20 mg capsule,delayed 20 mg PO BID #180 caps 07/09/24 09/02/24 Rx release tirzepatide 2.5 mg/0.5 mL 2.5 mg (0.5 mL) subcut QWEEK #2.5 08/19/24 09/02/24 Rx subcutaneous pen injector mL (Mounjaro) aspirin 325 mg tablet 325 mg PO DAILY 09/02/24 09/02/24 History bisacodyl 5 mg tablet 5 mg PO DAILY PRN constipation 09/02/24 09/02/24 History fluticasone propionate 100 1 inh inhalation BID 09/02/24 09/02/24 History mcg/actuation blister powder for inhalation fluticasone propionate 50 1 spray intranasal DAILY PRN 09/02/24 09/02/24 History mcg/actuation nasal allergy symptoms spray,suspension (24 Hour Allergy Relief) losartan 100 mg tablet 50 mg PO BID 09/02/24 09/02/24 History magnesium 250 mg tablet 500 mg PO DAILY 09/02/24 09/02/24 History multivitamin (Daily Value tablet) 1 tab PO DAILY 09/02/24 09/02/24 History Processed by: Pharmacy Medications reviewed in ED?: Yes Medication History completed: Yes Patient Interview: Completed Secondary Source(s): Written medication list and Insurance records [facility] Statement: As the person ultimately responsible for medication therapy, providers are able to order a medication from an existing home medication list in [facility] via the "Reconcile Routine" prior to Confirmation of that medication by client application support engineer. Such practice is discouraged except when the physician, in their clinical judgment, deems that a medical need exists for a medication without regard to previous use.
[2024-09-02] MEDS ORDERED: MELATONIN 3 MG TABLET PO PRN (16:01)
[2024-09-02] MEDS: SODIUM CHLORIDE FLUSH 0.9% 10 ML SYRINGE IVP SCH (16:36)
[2024-09-02] MEDS: hydrALAZINE INJ 20 MG/ML VIAL IVP PRN (16:44)
[2024-09-02] MEDS: LABETALOL 100 MG TABLET PO STA (18:25)
[2024-09-02] MEDS: FUROSEMIDE 40 MG/4 ML VIAL IVP SCH (20:28)
[2024-09-02] MEDS ORDERED: FUROSEMIDE 40 MG/4 ML VIAL IVP SCH (21:00)
[2024-09-02] MEDS: diphenhydrAMINE 25 MG CAPSULE PO ONE (23:14)
[2024-09-03 04:53] LABS: HCT - HEMATOCRIT 35.8 % (37.0-47.0); HGB - HEMOGLOBIN 11.5 g/dL (12.0-16.0); LYMPHOCYTES # (AUTO) 0.6 10^3/uL (1.5-3.5); LYMPHOCYTES % (AUTO) 14.2 %; MEAN CORPUSCULAR HEMOGLOBIN 32.1 pg (27.0-31.0); MEAN CORPUSCULAR HGB CONC 32.1 g/dL (32.0-36.0); MEAN PLATELET VOLUME 10.3 fL (7.9-10.8); MONOCYTES # (AUTO) 0.3 10^3/uL (0.0-1.0); MONOCYTES % (AUTO) 6.2 %; NEUTROPHILS # (AUTO) 3.6 10^3/uL (1.5-6.6); NEUTROPHILS % (AUTO) 79.2 %; PLT - PLATELET COUNT 194 10^3/uL (130-450); RED BLOOD COUNT 3.58 10^6/uL (4.20-5.40); RED CELL DISTRIBUTION WIDTH 15.8 % (12.0-15.0); WHITE BLOOD COUNT 4.5 x10^3/uL (4.8-10.8)
[2024-09-03 04:58] LABS: CALCIUM, IONIZED 1.06 mmol/L (1.15-1.33); VBG PH 7.524 (7.31-7.41)
[2024-09-03 05:05] LABS: MAGNESIUM 1.4 mg/dL (1.7-2.3)
[2024-09-03 05:10] LABS: CALCIUM 9.1 mg/dL (8.5-10.3); CREATININE 0.6 mg/dL (0.6-1.3); POTASSIUM 3.7 mmol/L (3.5-4.5)
[2024-09-03] MEDS: PANTOPRAZOLE 40 MG TABLET PO SCH (06:09)
[2024-09-03] MEDS: MAGNESIUM SULFATE 2 GRAM 2 GM/50 ML BAG IV SCH (06:10)
[2024-09-03] MEDS: INSULIN LISPRO 300 UNIT/3 ML PEN SUBQ SCH ×2 (08:22→21:55)
[2024-09-03] MEDS: CALCIUM CARBONATE CHEW 500 MG TABLET PO SCH (08:24)
[2024-09-03] MEDS: ENOXAPARIN 40 MG/0.4 ML SYRINGE SUBQ SCH (08:28)
--- NOTE | 2024-09-03 10:10 | PROVIDER PROGRESS NOTE ---
Subjective Subjective Subjective: Patient states she feels much better today. She is feeling less short of breath. She used her home CPAP overnight and got some rest. She denies any fevers or chills. She expresses concern about her blood pressure. Current Medications Current Medications Current Medications: Current Medications Generic Name Dose Route Start Last Admin Trade Name Freq PRN Reason Stop Dose Admin Acetaminophen 650 mg 09/02/24 10:30 Acetaminophen 325 Mg Tablet PO Q4HR PRN Pain 1 to 4, or Fever Aspirin 81 mg 09/02/24 10:30 09/03/24 08:26 Aspirin Ec 81 Mg Tablet PO 81 mg DAILY FRANCESCO Administration Atorvastatin Calcium 20 mg 09/02/24 10:30 09/02/24 20:28 Atorvastatin 10 Mg Tablet PO 20 mg HS FRANCESCO Administration Calcium Carbonate/Glycine 1,250 mg 09/03/24 08:00 09/03/24 08:24 Calcium Carbonate Chew 500 Mg Tablet PO 09/03/24 12:01 1,250 mg Q4H FRANCESCO Administration Protocol Carvedilol 50 mg 09/03/24 21:00 Carvedilol 12.5 Mg Tablet PO BID FRANCESCO Enoxaparin Sodium 40 mg 09/03/24 09:00 09/03/24 08:28 Enoxaparin 40 Mg/0.4 Ml Syringe SUBQ 40 mg DAILY FRANCESCO Administration Furosemide 40 mg 09/02/24 17:54 09/03/24 08:28 Furosemide 40 Mg/4 Ml Vial IVP 40 mg BID FRANCESCO Administration Hydralazine HCl 10 mg 09/02/24 16:01 09/03/24 06:26 Hydralazine Inj 20 Mg/Ml Vial IVP 10 mg Q6HR PRN Administration SBP> or= 160 OR DBP> or= 110 Insulin Glargine-yfgn 35 unit 09/02/24 10:30 09/03/24 08:22 Insulin Glargine-Yfgn 300 Unit/3 Ml Pen SUBQ 35 unit QDBREAKFAST FRANCESCO Administration Insulin Human Lispro 2 - 10 unit 09/03/24 08:00 09/03/24 08:22 Insulin Lispro 300 Unit/3 Ml Pen SUBQ 8 unit 0800,1200,1700,2100 FRANCESCO Administration Protocol Losartan Potassium 100 mg 09/02/24 10:30 09/03/24 08:28 Losartan 50 Mg Tablet PO 100 mg DAILY FRANCESCO Administration Melatonin 3 mg 09/02/24 16:01 Melatonin 3 Mg Tablet PO QPM PRN insomnia Pantoprazole Sodium 40 mg 09/03/24 07:00 09/03/24 06:09 Pantoprazole 40 Mg Tablet PO 40 mg QDAC FRANCESCO Administration Prednisone 40 mg 09/03/24 10:00 Prednisone 20 Mg Tablet PO DAILYWM FRANCESCO Sodium Chloride 10 ml 09/02/24 17:00 09/03/24 08:29 Sodium Chloride Flush 0.9% 10 Ml Syringe IVP 10 ml 0100,0900,1700 FRANECSCO Administration Sodium Chloride 10 ml 09/02/24 10:30 Sodium Chloride Flush 0.9% 10 Ml Syringe IVP PRN PRN NEEDED PER PROVIDER ORDERS Objective Vital Signs/Intake & Output Reviewed Vital Signs: Yes Vital Signs: Vital Signs x48h Temp Pulse Resp BP BP Pulse Ox O2 Flow Rate 09/03/24 09:00 96 22 158/90 H 96 1 09/03/24 08:06 2 09/03/24 07:58 149/67 H 09/03/24 07:46 97.9 F 95 22 149/67 H 93 2 09/03/24 07:00 94 19 150/74 H 95 2 09/03/24 06:45 96 146/79 H 09/03/24 06:40 98 121/89 09/03/24 06:35 95 156/66 H 09/03/24 06:32 93 152/67 H 09/03/24 06:26 167/86 H 09/03/24 06:24 91 167/86 H 09/03/24 06:00 98.2 F 86 20 163/71 H 96 2 09/03/24 05:00 89 17 167/78 H 95 2 09/03/24 04:22 2 09/03/24 04:00 82 23 136/75 H 91 L 09/03/24 03:00 90 18 150/75 H 90 L Intake & Output: Intake & Output 08/31/24 09/01/24 09/02/24 09/03/24 23:59 23:59 23:59 23:59 Intake Total 420 / 420 1010 / 1010 Output Total 2250 / 2250 70 / 70 Balance -1830 / -1830 940 / 940 Weight (kg) 121.5 kg 120 kg Objective General Appearance: positive No acute distress and Alert; negative Anxious Eyes Bilateral: positive Normal inspection, PERRL and EOMI ENT: positive ENT inspection nml, Pharynx nml and No signs of dehydration Neck: positive Nml inspection, Thyroid nml and No JVD Respiratory: positive Chest non-tender, No respiratory distress and Breath sounds nml; negative Wheezes, Rales or Rhonchi Cardiovascular: positive Regular rate & rhythm, No murmur and No gallop Abdomen: positive Non-tender and No organomegaly; negative Guarding, Rebound, Hepatomegaly, Splenomegaly, Mass or Abnml bowel sounds Back: positive Nml inspection; negative CVA tenderness (R) or CVA tenderness (L) Skin: positive Color nml, No rash, Warm and Dry Extremities: positive Non-tender, Full ROM and Pedal edema (minimal, trace) Neurologic/Psychiatric: positive Oriented x3; negative Disoriented to place, Disoriented to time, Weakness, Facial droop or Slurred/abnml speech Lab Results 09/03/24 04:35 09/03/24 04:35 Other Labs: Lab Results x24hrs 09/03/24 09/03/24 09/02/24 Range/Units 07:46 04:35 20:23 WBC 4.5 L (4.8-10.8) x10^3/uL RBC 3.58 L (4.20-5.40) 10^6/uL Hgb 11.5 L (12.0-16.0) g/dL Hct 35.8 L (37.0-47.0) % MCV 100.0 H (81.0-99.0) fL MCH 32.1 H (27.0-31.0) pg MCHC 32.1 (32.0-36.0) g/dL RDW 15.8 H (12.0-15.0) % Plt Count 194 (130-450) 10^3/uL MPV 10.3 (7.9-10.8) fL Neut # (Auto) 3.6 (1.5-6.6) 10^3/uL Lymph # (Auto) 0.6 L (1.5-3.5) 10^3/uL Tillman # (Auto) 0.3 (0.0-1.0) 10^3/uL Eos # (Auto) 0.0 (0.0-0.7) 10^3/uL Baso # (Auto) 0.0 (0.0-0.1) 10^3/uL Absolute Nucleated RBC 0.00 x10^3/uL Nucleated RBC % 0.0 /100WBC VBG pH 7.524 H (7.31-7.41) Ionized Calcium 1.06 L (1.15-1.33) mmol/L Sodium 137 (135-145) mmol/L Potassium 3.7 (3.5-4.5) mmol/L Chloride 95 L (101-111) mmol/L Carbon Dioxide 32 (21-32) mmol/L Anion Gap 10.0 (6-13) BUN 22 H (6-20) mg/dL Creatinine 0.6 (0.6-1.3) mg/dL Estimated GFR (MDRD) 99 (>89) Glucose 295 H (74-104) mg/dL POC Whole Bld Glucose 276 272 (70-100) mg/dL Calcium 9.1 (8.5-10.3) mg/dL Phosphorus 3.4 (2.5-5.0) mg/dL Magnesium 1.4 L (1.7-2.3) mg/dL Nasal Adenovirus (PCR) Nasal B. parapertussis DNA (PCR) Nasal Coronavir 229E PCR Nasal Coronavir HKU1 PCR Nasal Coronavir NL63 PCR Nasal Coronavir OC43 PCR Nasal Enterovir/Rhinovir PCR Nasal Influenza B PCR Nasal Influenza A PCR Nasal Parainfluen 1 PCR Nasal Parainfluen 2 PCR Nasal Parainfluen 3 PCR Nasal Parainfluen 4 PCR Nasal RSV (PCR) Nasal Screen MRSA (PCR) (NEGATIVE) Nasal B.pertussis DNA PCR Nasal C.pneumoniae (PCR) Uday Human Metapneumo PCR Nasal M.pneumoniae (PCR) Nasal SARS-CoV-2 (PCR) 09/02/24 09/02/24 09/02/24 Range/Units 16:44 11:13 10:35 WBC (4.8-10.8) x10^3/uL RBC (4.20-5.40) 10^6/uL Hgb (12.0-16.0) g/dL Hct (37.0-47.0) % MCV (81.0-99.0) fL MCH (27.0-31.0) pg MCHC (32.0-36.0) g/dL RDW (12.0-15.0) % Plt Count (130-450) 10^3/uL MPV (7.9-10.8) fL Neut # (Auto) (1.5-6.6) 10^3/uL Lymph # (Auto) (1.5-3.5) 10^3/uL Tillman # (Auto) (0.0-1.0) 10^3/uL Eos # (Auto) (0.0-0.7) 10^3/uL Baso # (Auto) (0.0-0.1) 10^3/uL Absolute Nucleated RBC x10^3/uL Nucleated RBC % /100WBC VBG pH (7.31-7.41) Ionized Calcium (1.15-1.33) mmol/L Sodium (135-145) mmol/L Potassium (3.5-4.5) mmol/L Chloride (101-111) mmol/L Carbon Dioxide (21-32) mmol/L Anion Gap (6-13) BUN (6-20) mg/dL Creatinine (0.6-1.3) mg/dL Estimated GFR (MDRD) (>89) Glucose (74-104) mg/dL POC Whole Bld Glucose 248 167 (70-100) mg/dL Calcium (8.5-10.3) mg/dL Phosphorus (2.5-5.0) mg/dL Magnesium (1.7-2.3) mg/dL Nasal Adenovirus (PCR) Nasal B. parapertussis DNA (PCR) Nasal Coronavir 229E PCR Nasal Coronavir HKU1 PCR Nasal Coronavir NL63 PCR Nasal Coronavir OC43 PCR Nasal Enterovir/Rhinovir PCR Nasal Influenza B PCR Nasal Influenza A PCR Nasal Parainfluen 1 PCR Nasal Parainfluen 2 PCR Nasal Parainfluen 3 PCR Nasal Parainfluen 4 PCR Nasal RSV (PCR) Nasal Screen MRSA (PCR) NEGATIVE (NEGATIVE) Nasal B.pertussis DNA PCR Nasal C.pneumoniae (PCR) Uday Human Metapneumo PCR Nasal M.pneumoniae (PCR) Nasal SARS-CoV-2 (PCR) 09/02/24 Range/Units 09:00 WBC (4.8-10.8) x10^3/uL RBC (4.20-5.40) 10^6/uL Hgb (12.0-16.0) g/dL Hct (37.0-47.0) % MCV (81.0-99.0) fL MCH (27.0-31.0) pg MCHC (32.0-36.0) g/dL RDW (12.0-15.0) % Plt Count (130-450) 10^3/uL MPV (7.9-10.8) fL Neut # (Auto) (1.5-6.6) 10^3/uL Lymph # (Auto) (1.5-3.5) 10^3/uL Tillman # (Auto) (0.0-1.0) 10^3/uL Eos # (Auto) (0.0-0.7) 10^3/uL Baso # (Auto) (0.0-0.1) 10^3/uL Absolute Nucleated RBC x10^3/uL Nucleated RBC % /100WBC VBG pH (7.31-7.41) Ionized Calcium (1.15-1.33) mmol/L Sodium (135-145) mmol/L Potassium (3.5-4.5) mmol/L Chloride (101-111) mmol/L Carbon Dioxide (21-32) mmol/L Anion Gap (6-13) BUN (6-20) mg/dL Creatinine (0.6-1.3) mg/dL Estimated GFR (MDRD) (>89) Glucose (74-104) mg/dL POC Whole Bld Glucose (70-100) mg/dL Calcium (8.5-10.3) mg/dL Phosphorus (2.5-5.0) mg/dL Magnesium (1.7-2.3) mg/dL Nasal Adenovirus (PCR) NOT DETECTED Nasal B. parapertussis DNA (PCR) NOT DETECTED Nasal Coronavir 229E PCR NOT DETECTED Nasal Coronavir HKU1 PCR NOT DETECTED Nasal Coronavir NL63 PCR NOT DETECTED Nasal Coronavir OC43 PCR NOT DETECTED Nasal Enterovir/Rhinovir PCR NOT DETECTED Nasal Influenza B PCR NOT DETECTED Nasal Influenza A PCR NOT DETECTED Nasal Parainfluen 1 PCR NOT DETECTED Nasal Parainfluen 2 PCR NOT DETECTED Nasal Parainfluen 3 PCR NOT DETECTED Nasal Parainfluen 4 PCR NOT DETECTED Nasal RSV (PCR) NOT DETECTED Nasal Screen MRSA (PCR) (NEGATIVE) Nasal B.pertussis DNA PCR NOT DETECTED Nasal C.pneumoniae (PCR) NOT DETECTED Uday Human Metapneumo PCR NOT DETECTED Nasal M.pneumoniae (PCR) NOT DETECTED Nasal SARS-CoV-2 (PCR) NOT DETECTED Diagnostic Imaging Diagnostic Imaging Results: positive Final report reviewed Assessment/Plan Problem List (1) Respiratory failure: Impression: Acute hypoxic respiratory failure on admission requiring 10 L. Now only requiring 1-2 L. Likely flash pulmonary edema in setting of hypertensive emergency. Continue home antihypertensives, including Coreg, losartan, and increased dose of IV Lasix. Also has some wheezing on exam. May have concurrent COPD exacerbation. Continue IV Lasix 40 mg twice daily for one more day. Received Solu-Medrol 40 mg every 6 hours for 3 doses, now transitioned to prednisone 40 mg daily. Coreg increased to 50mg twice a day. Qualifiers: Chronicity: acute Respiratory failure complication: hypoxia Qualified Code(s): J96.01 - Acute respiratory failure with hypoxia (2) Diabetes mellitus type 2, insulin dependent: Impression: Continue insulin glargine 35 units in the morning, insulin sliding scale, moderate. (3) Osteoarthritis: Impression: Continue Tylenol as needed. Qualifiers: Osteoarthritis location: unspecified site Osteoarthritis type: u nspecified Qualified Code(s): M19.90 - Unspecified osteoarthritis, unspecified site (4) DEBBIE on CPAP: Impression: Continue home CPAP at night. (5) Essential hypertension: Impression: Continue home antihypertensives, including Coreg, losartan, and Lasix. Blood pressure uncontrolled. Increased Coreg to 50mg twice daily. (6) Hyperlipidemia: Impression: Continue home statin. Qualifiers: Hyperlipidemia type: unspecified Qualified Code(s): E78.5 - Hyperlipidemia, unspecified (7) Congestive heart failure: Impression: Preserved ejection fraction. Maintain euvolemic status. Continue IV Lasix as outlined above. Qualifiers: Heart failure chronicity: acute on chronic Heart failure type: u nspecified Qualified Code(s): I50.9 - Heart failure, unspecified
[2024-09-03] MEDS: predniSONE 20 MG TABLET PO SCH (11:04)
[2024-09-03] MEDS: carvediloL 12.5 MG TABLET PO STA (11:04)
[2024-09-03 18:05] LABS: CALCIUM 9.5 mg/dL (8.5-10.3); IONIZED CALCIUM IF INDICATED NO; MAGNESIUM 1.9 mg/dL (1.7-2.3)
[2024-09-03] MEDS: carvediloL 12.5 MG TABLET PO SCH (21:43)
[2024-09-03] MEDS: diphenhydrAMINE 25 MG CAPSULE PO PRN (22:09)
[2024-09-04 06:25] LABS: HCT - HEMATOCRIT 35.7 % (37.0-47.0); HGB - HEMOGLOBIN 11.8 g/dL (12.0-16.0); MEAN CORPUSCULAR HEMOGLOBIN 32.9 pg (27.0-31.0); MEAN CORPUSCULAR HGB CONC 33.1 g/dL (32.0-36.0); MEAN CORPUSCULAR VOLUME 99.4 fL (81.0-99.0); MEAN PLATELET VOLUME 10.5 fL (7.9-10.8); RED BLOOD COUNT 3.59 10^6/uL (4.20-5.40); WHITE BLOOD COUNT 7.4 x10^3/uL (4.8-10.8)
[2024-09-04 06:44] LABS: CALCIUM 8.9 mg/dL (8.5-10.3); CREATININE 0.7 mg/dL (0.6-1.3); MAGNESIUM 1.9 mg/dL (1.7-2.3); POTASSIUM 3.4 mmol/L (3.5-4.5)
[2024-09-04] MEDS: POTASSIUM CHLORIDE 20 MEQ TABLET PO ONE (08:17)
[2024-09-04] MEDS: carvediloL 12.5 MG TABLET PO SCH (08:29)
--- NOTE | 2024-09-04 08:48 | Discharge Summary ---
Discharge Summary Admit Date: 09/02/24 Discharge Date: 09/04/24 Discharging Provider: Dr. Shelley Staley Primary Care Provider: Trudy Avila Code Status: Attempt Resuscitation Discharge Facility Name: Home DIAGNOSES Admission Diagnoses: Respiratory failure Osteoarthritis DEBBIE on CPAP Hypertension Hyperlipidemia Congestive heart failure preserved ejection fraction Discharge Diagnoses with Status of Each Condition: Respiratory failureresolved. Patient is now on room air. Will continue Lasix 60 mg daily until she sees her primary care provider. Continue prednisone 40 mg daily for 5-day course. Diabetes mellitus type 2, insulin-dependentcontinue insulin glargine 35 units in the morning, sliding scale. Osteoarthritiscontinue Tylenol as needed. DEBBIE on CPAPcontinue home CPAP at night. Hypertensioncontinue Coreg, losartan, Lasix. Tried increasing dose of Coreg, and patient became very hypotensive. Continue home dose. Hyperlipidemiacontinue statin. Congestive heart failure with preserved ejection fractionmaintain euvolemic status, continue oral Lasix at discharge. HPI History of Present Illness: Patient is a 68-year-old female with a history of COPD not on home oxygen, heart failure with preserved ejection fraction, hypertension who presented for shortness of breath. She states over the last few days, has gotten progressively worse. She states it does not matter if she is lying flat or sitting up, she is feeling short of breath. Activity does make it worse. She has no associated chest pain, chest tightness, palpitations, feelings of heart racing. She does endorse a dry cough. She has no sputum production. Of note, she stated that she had an identical episode happened in 04/2024. Over the last few days, she states that not much is changing her daily schedule. Her diet is the same. She does not endorse any increased dietary salt intake or fluid intake. She has not weighed herself in the last few weeks, so she does not know if she has increased in water weight. She does note that her lower extremities are more swollen than usual. Nobody around her has been sick. She denies any fevers or chills. She has not been around any tobacco smoke. She has not missed any of her home medication doses. The only change from her medications in April is that she now takes Lasix 60 mg a day as needed for her lower extremity swelling. Since she has been here, she has received a dose of Solu-Medrol, placed on Oxymizer, as well as received a dose of IV Lasix. She feels much improved. CONSULTS | PROCEDURES Consultations: Respiratory therapy Procedures: Chest x-ray HOSPITAL COURSE Hospital Course: Patient is a 68-year-old female with a history of COPD not on home oxygen, heart failure preserved ejection fraction, hypertension who presented for shortness of breath she states over the last few days it had progressively gotten worse. It was not positional, did worsen with activity. She does not recall any changes to her diet or fluid intake at that time. On exam, she had some bibasilar crackles, and as well as expiratory wheezing. She was started on IV steroids, transitioned to prednisone. She was also started on IV Lasix. She received a few doses, and will be transition to oral Lasix 60 mg daily. While she was here, her blood pressure remained elevated. Initially, we did increase her dose of Coreg. This resulted in a steep drop in her blood pressure. As such, we will discharge her home on her home antihypertensive regimen. She was advised to keep a blood pressure log at home, and follow-up with her primary care provider. She has an appointment with her primary care provider in 2 weeks, her crane oiler in 3 weeks, as well as her pharmaceutical botanist. She was advised to return if her symptoms worsen. She demonstrated understanding. ALLERGIES Allergies Allergy/AdvReac Type Severity Reaction Status Date / Time lisinopril Allergy Severe Cough Verified 07/09/24 13:40 hydrocodone (Hydrocodone) AdvReac Mild Nausea Verified 07/09/24 13:40 oxycodone AdvReac Nausea Verified 07/09/24 13:40 MEDICATIONS Ambulatory Orders Medication Instructions Recorded Confirmed conjugated estrogens 0.3 mg tablet 0.3 mg PO DAILY 07/04/13 09/02/24 (Premarin) albuterol sulfate 90 mcg/actuation 1 puff inhalation Q6H PRN 04/09/24 09/02/24 aerosol inhaler (Ventolin HFA) Shortness Of Air/Wheezing triamcinolone acetonide 0.1 % 1 ea topical BID PRN Per Physician 04/09/24 09/02/24 topical cream Order atorvastatin 20 mg tablet 20 mg PO HS #90 tabs 06/17/24 09/02/24 metformin 1,000 mg tablet 1,000 mg PO BID #90 tabs 06/17/24 09/02/24 potassium chloride 20 mEq 20 meq PO QDAY #30 tabs 06/17/24 09/02/24 tablet,extended release (K-Tab) insulin aspart U-100 100 unit/mL 3 - 5 unit (0.03 - 0.05 mL) subcut 06/24/24 09/02/24 (3 mL) subcutaneous pen (Novolog TIDWM #15 mL FlexPen U-100 Insulin aspart) acyclovir 400 mg tablet 400 mg PO BID #90 tabs 07/09/24 09/02/24 blood sugar diagnostic (FreeStyle 07/09/24 07/09/24 Test strips) blood-glucose meter,continuous 07/09/24 07/09/24 (Dexcom G6 Collision Repairer) blood-glucose sensor (DexlinkedFA G6 07/09/24 07/09/24 Sensor device) carvedilol 25 mg tablet 25 mg PO BID #180 tabs 07/09/24 09/02/24 insulin glargine 100 unit/mL 30 unit subcut DAILY 07/09/24 09/02/24 subcutaneous solution (Lantus U-100 Insulin) insulin syringe-needle U-100 0.5 07/09/24 07/09/24 mL 31 gauge x 5/16" (BD Insulin Syringe Ultra-Fine) ketoconazole 2 % topical cream 1 applic topical BID PRN Per 07/09/24 09/02/24 Physician Order #30 grams lancets 28 gauge (FreeStyle 07/09/24 07/09/24 Lancets) montelukast 10 mg tablet 10 mg PO QPM #90 tabs 07/09/24 09/02/24 omeprazole 20 mg capsule,delayed 20 mg PO BID #180 caps 07/09/24 09/02/24 release tirzepatide 2.5 mg/0.5 mL 2.5 mg (0.5 mL) subcut QWEEK #2.5 08/19/24 09/02/24 subcutaneous pen injector mL (Pavan) aspirin 325 mg tablet 325 mg PO DAILY 09/02/24 09/02/24 bisacodyl 5 mg tablet 5 mg PO DAILY PRN constipation 09/02/24 09/02/24 fluticasone propionate 100 1 inh inhalation BID 09/02/24 09/02/24 mcg/actuation blister powder for inhalation fluticasone propionate 50 1 spray intranasal DAILY PRN 09/02/24 09/02/24 mcg/actuation nasal allergy symptoms spray,suspension (24 Hour Allergy Relief) losartan 100 mg tablet 50 mg PO BID 09/02/24 09/02/24 magnesium 250 mg tablet 500 mg PO DAILY 09/02/24 09/02/24 multivitamin (Daily Value tablet) 1 tab PO DAILY 09/02/24 09/02/24 furosemide 40 mg tablet 60 mg (1.5 x 40 mg) PO QDAY 30 09/04/24 days #30 tabs prednisone 20 mg tablet 40 mg (2 x 20 mg) PO DAILYWM 3 09/04/24 days #6 tabs PHYSICAL EXAM AT DISCHARGE General Appearance: positive No acute distress and Anxious Eyes Bilateral: positive Normal inspection, PERRL and EOMI ENT: positive ENT inspection nml and Pharynx nml Neck: positive Nml inspection, Thyroid nml and No JVD Respiratory: positive Chest non-tender, No respiratory distress, Breath sounds nml, Wheezes (mild expiratory) and Rales (mild bibasilar); negative Rhonchi Cardiovascular: positive Regular rate & rhythm, No murmur and No gallop Abdomen: positive Non-tender, No organomegaly and Nml bowel sounds; negative Tenderness, Guarding, Hepatomegaly or Splenomegaly Back: positive Nml inspection; negative CVA tenderness (R) or CVA tenderness (L) Skin: positive Color nml, No rash, Warm and Dry Extremities: positive Non-tender, Full ROM and Nml appearance Neurologic/Psychiatric: positive Oriented x3 and Mood/affect nml LABS 09/04/24 05:27 09/04/24 05:27 DIAGNOSTIC IMAGING Diagnostic Imaging Results: Final report reviewed QUALITY (Female Hip Fx Only) Was patient sent home on osteoporosis medication?: No FOLLOW UP Follow Up: Follow-up with your primary care provider. Follow-up with your crane oiler. Follow-up with your pharmaceutical botanist. TIME SPENT Time Spent in Discharge (Minutes): 40 Discharge Plan Discharge Patient Disposition: Home, Self Care Prescriptions: New prednisone 20 mg Tablet 40 mg PO DAILYWM 3 Days Qty: 6 0RF Continued potassium chloride [K-Tab] 20 mEq tablet extended release 20 meq PO QDAY Qty: 30 2RF atorvastatin 20 mg tablet 20 mg PO HS Qty: 90 2RF Rx Instructions: Take 1 tablet once a day metformin 1,000 mg tablet 1,000 mg PO BID Qty: 90 2RF insulin aspart U-100 [Novolog FlexPen U-100 Insulin] 100 unit/mL (3 mL) insulin pen 3 - 5 unit subcut TIDWM Qty: 15 1RF Patient Comments: according to sliding scale Rx Instructions: Inject 5 units subcutaneously, three times a day with meals. May use between 2-5 units TID. Mounjaro 2.5 mg/0.5 mL pen injector 2.5 mg subcut QWEEK Qty: 2.5 0RF Patient Comments: patient states she was supposed to start taking today (09/02/24) Rx Instructions: for 4 weeks Premarin 0.3 MG tablet 0.3 mg PO DAILY triamcinolone acetonide 15 APPLIC/15 GM cream 1 ea topical BID PRN (Reason: Per Physician Order) albuterol sulfate [Ventolin HFA] 200 PUFFS/18 GM HFA aerosol inhaler 1 puff inhalation Q6H PRN (Reason: Shortness Of Air/Wheezing) fluticasone propionate 100 mcg/actuation blister with device 1 inh inhalation BID losartan 100 mg tablet 50 mg PO BID aspirin 325 mg tablet 325 mg PO DAILY bisacodyl 5 mg tablet 5 mg PO DAILY PRN (Reason: constipation) fluticasone propionate [24 Hour Allergy Relief] 50 mcg/actuation spray,suspension 1 spray intranasal DAILY PRN (Reason: allergy symptoms) Rx Instructions: administer into each nostril magnesium 250 mg tablet 500 mg PO DAILY multivitamin [Daily Value] Tablet 1 tab PO DAILY (DME) Dexcom G6 Collision Repairer Misc See Rx Instructions .ROUTE Rx Instructions: As directed (DME) Dexcom G6 Sensor Device See Rx Instructions .ROUTE Rx Instructions: As directed (DME) FreeStyle Test Strip See Rx Instructions .ROUTE Rx Instructions: As directed (DME) insulin syringe-needle U-100 [BD Insulin Syringe Ultra-Fine] 0.5 mL 31 gauge x 5/16" syringe See Rx Instructions .ROUTE Rx Instructions: As directed (DME) lancets [FreeStyle Lancets] 28 gauge misc See Rx Instructions .ROUTE Rx Instructions: As directed insulin glargine [Lantus U-100 Insulin] 100 unit/mL solution 30 unit subcut DAILY Patient Comments: Was taking 30 units when taking ozempic, stopped taking ozempic and went up to 40 units, will go back down to 30 when starting mounjaro. Rx Instructions: Inject 30-40 units subcutaneously once a day. carvedilol 25 mg tablet 25 mg PO BID Qty: 180 3RF omeprazole 20 mg capsule,delayed release(DR/EC) 20 mg PO BID Qty: 180 3RF Rx Instructions: Take 1 capsule by mouth twice a day montelukast 10 mg tablet 10 mg PO QPM Qty: 90 3RF acyclovir 400 mg tablet 400 mg PO BID Qty: 90 3RF ketoconazole 2 % cream 1 applic topical BID PRN (Reason: Per Physician Order) Qty: 30 1RF Changed furosemide 40 mg tablet 60 mg PO QDAY 30 Days Qty: 30 2RF Patient Comments: 40-60mg daily, has recently increased to 60mg. Activity Restrictions: Activity as Tolerated Diet: Diabetic Health Concerns: You came in because you felt very suddenly short of breath. Your chest x-ray looks like there may have been some fluid on it. It is likely that you are having combined exacerbation of both your congestive heart failure and your COPD. We started you on some steroids, and gave you a stronger water pill through your IV. Once you are home, we need to continue taking the oral steroid, the prednisone for 3 more days. Please use your fluticasone inhaler twice a day as it is prescribed. Use your ProAir only as needed. Please keep your appointment with your pharmaceutical botanist. For your heart failure, we had you on a strong water pill through your IV. I have upped her dose of Lasix to 60 mg once a day. Please continue taking this. Please weigh yourself daily. Please see attached dietary instructions on a low- sodium and fluid restricted diet. Please keep your appointment with your primary care doctor in 2 weeks, as well as your crane oiler appointment at the end of the month. Finally, your blood pressure was very high when you first came in. When we change one of your medications, your blood pressure dropped low. As such, we did continue your current home regimen of losartan 50 mg twice a day as well as Coreg 25 mg twice a day. Please continue to keep a blood pressure log, and take it into your primary care provider. If you feel short of breath, have chest pain, have difficulty breathing at home, please feel free to return to the emergency room. We are glad you are feeling better, thank you for letting us take care of you. Here is your heart diagnoses as you requested, as taken and reviewed from your crane oiler note (07/02/24) as well as review of your former ECHOs (ultrasound of heart): Diastolic congestive heart failure (grade II diastolic dysfunction) Care Plan Goals: 1. Continue prednisone for 3 more days. 2. Use fluticasone at home twice a day as prescribed. Use ProAir as needed. 3. Continue your losartan and your Coreg as it is prescribed. Keep a blood pressure log at home. Follow-up with your primary care provider. 4. Work on a low-sodium and fluid restricted diet (1800cc to 2000cc or less). 5. Follow-up with your crane oiler. 6. Follow-up with your pharmaceutical botanist. Print Language: Croatian Patient Instructions: DASH Plan Eat Heart Healthy Food, Heart Failure Diet Changes Stand Alone Forms: PCP List
[2024-09-04] MEDS: FUROSEMIDE 40 MG TABLET PO SCH (09:04)
[2024-09-04] MEDS: IPRATROPIUM/ALBUTEROL 3 ML NEB INH SCH (11:53)
[2024-09-04 15:40] VITALS: BP 166/81; TEMP 97.9; O2SAT 95
== END 2024-09-04 16:25 | disposition home or self-care (01) | DRG 189 ==
LOC: ED 07:35 → ICU 09:44 → MS2 09-03 20:07
PROVIDERS: ADMIT Internal Medicine; ATTEND Internal Medicine
DX: Z87.891 Personal history of nicotine dependence; I11.0 Hypertensive heart disease with heart failure; R00.0 Tachycardia, unspecified; I87.8 Other specified disorders of veins; E78.5 Hyperlipidemia, unspecified; R60.0 Localized edema; Z79.85 Long-term (current) use of injectable non-insulin antidiabetic drugs; I50.33 Acute on chronic diastolic (congestive) heart failure; E11.40 Type 2 diabetes mellitus with diabetic neuropathy, unspecified; J44.9 Chronic obstructive pulmonary disease, unspecified; Z79.82 Long term (current) use of aspirin; E11.9 Type 2 diabetes mellitus without complications; J96.01 Acute respiratory failure with hypoxia; I50.9 Heart failure, unspecified; G47.30 Sleep apnea, unspecified; Z79.899 Other long term (current) drug therapy; M19.90 Unspecified osteoarthritis, unspecified site; Z79.84 Long term (current) use of oral hypoglycemic drugs; G47.33 Obstructive sleep apnea (adult) (pediatric); Z79.4 Long term (current) use of insulin